=== PATIENT | female | born 1925 | race Caucasian/White ===

== ENCOUNTER 2016-07-27 10:44 | Inpatient (IN) | payer MEDICARE, BC ==
[~2016-07-27] VITALS: Ht 162.6 cm; Wt 79.5 kg
[~2016-07-27 10:44] MED LIST: AMLO5TAB2 PO; ASPI-171 PO; ATOR10TA PO; B CO1TAB12 PO; CALC-178 PO; CALCIUM CARB/VIT D3 500/200 TABLET PO SCH; DONE10TA34 PO; DULO60CA6 PO; GLUC-142 PO; LISI40TA PO; MONT10TA9 PO; TRAM1TAB4 PO; Tumeric PO
[2016-07-27] MEDS ORDERED: IV NORMAL SALINE 500ML BAG 500 ML IV ONE (11:15)
--- NOTE | 2016-07-27 11:16 | PHYS DOC ---
Past Medical History Past Medical History: Arthritis, High Cholesterol, Hypertension, TIA Additional Past Medical Histor: "brain bleed" Past Surgical History: Cholecystectomy, Hysterectomy Additional Past Surgical Histo: aortic stent, Alcohol Use: None Drug Use: None Adult General Chief Complaint Chief Complaint: ALTERED MENTAL STATUS [facility] Patient is a 89 year old female who presents with caregiver for evaluation of altered mental status. Over the past 3 days, she has been confused, eating less and drinking less, and has less physical activity. She is usually a daily ambulator, but has been mostly in the bed in the past few days. She has no reported emesis or diarrhea. She chronically wears briefs for incontinence. Family had to fully assist her to the car to get her here. Caregiver is concerned she has a urinary tract infection as she has prior presentations like this. Patient has no complaints and denies headache, vision changes, dizziness, chest pain, dyspnea, cough, abdominal pain, nausea or vomiting, diarrhea, numbness, tingling, weakness. Review of Systems Review of Systems Constitutional: Denies fever or chills [] Eyes: Denies change in visual acuity, redness, or eye pain [] HENT: Denies nasal congestion or sore throat [] Respiratory: Denies cough or shortness of breath [] Cardiovascular: No additional information not addressed in HPI [] GI: Denies abdominal pain, nausea, vomiting, bloody stools or diarrhea [] : Denies dysuria or hematuria [] Musculoskeletal: Denies back pain or joint pain [] Integument: Denies rash or skin lesions [] Neurologic: Denies headache, focal weakness or sensory changes [] Endocrine: Denies polyuria or polydipsia [] Current Medications Current Medications Current Medications Medications (Trade) Dose Ordered Sig/Jeffy Start Time Stop Time Status Last Admin Dose Admin Ceftriaxone Sodium 1 gm/ Sodium Chloride 50 ml @ 100 mls/hr Q24H 07/28/16 13:00 Ceftriaxone Sodium (Rocephin 1gm Ivpb For Omni) 50 ml @ 100 mls/hr 1X ONCE 07/27/16 12:45 07/27/16 13:14 Sodium Chloride 500 ml @ 500 mls/hr 1X ONCE 07/27/16 11:15 07/27/16 12:14 DC 07/27/16 11:27 500 MLS/HR Allergies Allergies Allergies Coded Allergies Type Severity Reaction Last Updated Verified No Known Drug Allergies 05/10/16 No Physical Exam Physical Exam Constitutional: Well developed, well nourished, no acute distress, non-toxic appearance. [] HENT: Normocephalic, atraumatic, bilateral external ears normal, oropharynx moist, no oral exudates, nose normal. [] Eyes: PERRLA, EOMI, conjunctiva normal, no discharge. [] Neck: Normal range of motion, no tenderness, supple. [] Cardiovascular:Heart rate regular rhythm [] Lungs & Thorax: Bilateral breath sounds clear to auscultation [] Abdomen: Bowel sounds normal, soft, no tenderness. [] Skin: Warm, dry, no erythema, no rash. [] Back: No tenderness, no CVA tenderness. [] Extremities: No tenderness, ROM intact, no edema. [] Neurologic: Alert and oriented to self, normal motor function, normal sensory function, no focal deficits noted. [] Psychologic: Affect normal, mood normal. [] Current Patient Data Vital Signs Vital Signs Date Time Temp Pulse Resp B/P Pulse Ox O2 Delivery O2 Flow Rate FiO2 07/27/16 11:59 75 16 98 07/27/16 10:58 97.8 129/60 Room Air 97.8 Lab Values Laboratory Tests Test 07/27/16 11:15 07/27/16 11:25 White Blood Count 19.3x10^3/uL (4.0-11.0) H Red Blood Count 3.93x10^6/uL (3.50-5.40) Hemoglobin 11.1g/dL (12.0-15.5) L Hematocrit 34.1% (36.0-47.0) L Mean Corpuscular Volume 87fL (79-100) Mean Corpuscular Hemoglobin 28pg (25-35) Mean Corpuscular Hemoglobin Concent 33g/dL (31-37) Red Cell Distribution Width 15.4% (11.5-14.5) H Platelet Count 326x10^3/uL (140-400) Neutrophils (%) (Auto) 90% (31-73) H Lymphocytes (%) (Auto) 6% (24-48) L Monocytes (%) (Auto) 4% (0-9) Eosinophils (%) (Auto) 0% (0-3) Basophils (%) (Auto) 0% (0-3) Neutrophils # (Auto) 17.4x10^3uL (1.8-7.7) H Lymphocytes # (Auto) 1.1x10^3/uL (1.0-4.8) Monocytes # (Auto) 0.7x10^3/uL (0.0-1.1) Eosinophils # (Auto) 0.0x10^3/uL (0.0-0.7) Basophils # (Auto) 0.1x10^3/uL (0.0-0.2) Platelet Estimate Pending Sodium Level 144mmol/L (136-145) Potassium Level 3.8mmol/L (3.5-5.1) Chloride Level 106mmol/L (98-107) Carbon Dioxide Level 28mmol/L (21-32) Anion Gap 10 (6-14) Blood Urea Nitrogen 39mg/dL (7-20) H Creatinine 1.5mg/dL (0.6-1.0) H Estimated GFR (Cockcroft-Gault) 32.7 Glucose Level 150mg/dL (70-99) H Calcium Level 9.3mg/dL (8.5-10.1) Urine Collection Type U cath Urine Color Rachel Urine Clarity Cloudy Urine pH 6.0 Urine Specific [place] 1.020 Urine Protein 100mg/dL (NEG-TRACE) Urine Glucose (UA) Negativemg/dL (NEG) Urine Ketones (Stick) Tracemg/dL (NEG) Urine Blood Large (NEG) Urine Nitrite Negative (NEG) Urine Bilirubin Small (NEG) Urine Urobilinogen Dipstick 0.2mg/dL (0.2 mg/dL) Urine Leukocyte Esterase Moderate (NEG) Urine RBC >40/HPF (0-2) Urine WBC 11-20/HPF (0-4) Urine Squamous Epithelial Cells Mod/LPF Urine Bacteria Moderate/HPF (0-FEW) Urine Mucus Mod/LPF Laboratory Tests 07/27/16 11:15 Laboratory Tests 07/27/16 11:15 EKG EKG EKG as interpreted by me as normal sinus rhythm, rate 68, no ST-T changes, normal intervals, no ectopy Course & Med Decision Making Course & Med Decision Making Pertinent Labs and Imaging studies reviewed. (See chart for details) She has leukocytosis and slight elevation in creatinine. Urinalysis shows infection. Suspect delirium secondary to metabolic encephalopathy of urinary tract infection. She has remained cooperative in bed. Will admit for treatment continued therapy. Discussed with Dr. Huber, who will admit. Taylor Disclaimer Taylor Disclaimer This electronic medical record was generated, in whole or in part, using a voice recognition dictation system. Departure Departure Impression: Primary Impression: Altered mental status Additional Impression: Acute cystitis without hematuria Disposition: ADMITTED INPATIENT Condition: STABLE Referrals: AMISHA ALVAREZ MD (PCP) Problem Qualifiers Primary Impression: Altered mental status Altered mental status type: delirium Qualified Code: R41.0 - Disorientation , unspecified Seble FERNANDO MD Jul 27, 2016 11:16
[2016-07-27 11:33] LABS: HEMATOCRIT 34.1 % (36.0-47.0); HEMOGLOBIN 11.1 g/dL (12.0-15.5); MEAN CORPUSCULAR HEMOGLOBIN 28 pg (25-35); MEAN CORPUSCULAR HGB CONC 33 g/dL (31-37); MEAN CORPUSCULAR VOLUME 87 fL (79-100); RED BLOOD COUNT 3.93 x10^6/uL (3.50-5.40); WHITE BLOOD COUNT 19.3 x10^3/uL (4.0-11.0)
[2016-07-27 11:34] LABS: BASO # 0.1 x10^3/uL (0.0-0.2); BASO % 0 % (0-3); EOS % 0 % (0-3); LYMPH # 1.1 x10^3/uL (1.0-4.8); LYMPH % 6 % (24-48); MONO % 4 % (0-9); NEUT % 90 % (31-73); PLATELET COUNT 326 x10^3/uL (140-400); RED CELL DISTRIBUTION WIDTH 15.4 % (11.5-14.5)
[2016-07-27 11:51] LABS: CALCIUM 9.3 mg/dL (8.5-10.1); CREATININE 1.5 mg/dL (0.6-1.0); GFR 32.7; POTASSIUM 3.8 mmol/L (3.5-5.1)
--- NOTE | 2016-07-27 12:03 | EKG ---
[facility] [address] [place] [address] Test Date: 2016-07-27 Test Time: 11:06:28 Pat Name: AUBRIE DELATORRE Department: Room: Gender: F Gin Inspector: : [id number] Requested By: Seble FERNANDO Order Number: [id number] Reading MD: Measurements Intervals [place] Rate: 68 P: 45 DC: 130 QRS: 33 QRSD: 76 T: 106 QT: 438 QTc: 471 Interpretive Statements SINUS RHYTHM T ABNORMALITY IN LATERAL LEADS RI6.01 Unconfirmed report No previous ECG available for comparison
[2016-07-27 12:04] LABS: GLUCOSE,URINE NEGATIVE (NEG)
[2016-07-27 12:05] LABS: BACTERIA,URINE MODERATE /HPF (0-FEW); BILIRUBIN,URINE SMALL (NEG); NITRITE,URINE NEGATIVE (NEG); PROTEIN,URINE 100 mg/dL (NEG-TRACE); RBC,URINE >40 /HPF (0-2); SQUAMOUS EPITHELIAL CELL,UR MOD /LPF; UROBILINOGEN,URINE 0.2 mg/dL (0.2 mg/dL)
[2016-07-27] MEDS ORDERED: CEFTRIAXONE 1GM IVPB FOR OMNI 50 ML IV ONE (12:45)
[2016-07-27] MEDS ORDERED: ACETAMINOPHEN 325 MG TABLET. PO PRN (13:00)
[2016-07-27] MEDS ORDERED: ONDANSETRON PF 4 MG/2 ML VIAL. IV PRN ×2 (13:00→14:45)
[2016-07-27 13:34] LABS: % BASOS 1 % (0-3)
[2016-07-27 13:35] LABS: PLT ESTIMATE ADEQUATE (ADEQUATE)
--- NOTE | 2016-07-27 14:48 | ACF ---
Admission Forms Criteria MENTAL STATUS CHANGE Clinical Indications for Inpatient Care (Place 'X' for any and all applicable criteria): Ongoing inpatient care may be needed for ANY ONE of the following(1)(2)(3)(5)(6) : [X]I. Suspected serious etiology (eg, medical disorder, SURGERY TECHNICIAN event) of mental status change [ ]II. Danger to self or others not manageable at lower level of care [ ]III. Grave disability (eg, inability to perform self care necessary at lower level of care) [ ]IV. Agitation or inappropriate behavior interfering with care for primary condition (eg, attempting to discontinue lines or drains prematurely, unable to cooperate with respiratory care) [ ]V. Delirium [A] [D][E] as described by ANY ONE of the following(26): [ ]a) Delirium due to alcohol or sedative [F] withdrawal [ ]b) Delirium of uncertain etiology that has not responded to appropriate empiric treatment [ ]c) Delirium that prevents performance of a life-sustaining function (eg, feeding or hydrating oneself) [ ]. General contraindications and/or Inappropriate clinical situations for Observational Care in patients with Mental Status Change, when ANY ONE of the following is required: [ ]a) Prediction of prolongation of LOS based on ANY ONE of the following may be considered as a contraindication for observational care 2, 3, 4, 5, 6, 7, 8, 9, 10, 11 [ ]i) Age > 65 yrs. [ ]ii) Patient arriving by ambulance [ ]iii) Patient with high acuity [ ]iv) Patient requiring vital sign monitoring [ ]v) Patient on IV medication [ ]b) Systolic blood pressures 180mmHg 3,12 [ ]c) Patient with altered mental status including delirium and other alteration of consciousness, (3) [ ]d) Patient whose discharge disposition will be to a longterm home or rehabilitation home should not be managed in Emergency Department Observation Unit. CMS rule requires 3 days hospital stay before such placement.3,13 [ ]e) Patient with failure to thrive due to broad array of etiologies 3,16,17 [ ]f) Inability to ambulate 3,14 Extended stay beyond goal length of stay for the primary condition may be needed until ALL of the following are present(3)(5): [ ]a) Underlying medical etiology of mental status change is absent, or has been established and adequately treated [ ]b) Danger to self or others is absent or manageable at lower level of care. [ ]c) Behavior crisis management, including physical or chemical restraints, is not required or available at lower level of car [ ]d) Substance or alcohol withdrawal is absent or manageable at lower level of care. [ ]e) Behavioral symptoms (eg, agitation, somnolence, inappropriate behavior) are absent, or are manageable at lower level of care. The original [facility] content created by [facility] has been revised. The portions of the content which have been revised are identified through the use of italic text or in bold, and [facility] has neither reviewed nor approved the modified material. All other unmodified content is copyright [facility]. Please see references footnoted in the original [facility] edition 2016 Admission Criteria Met?: Yes BRITTANIE MELARA Jul 27, 2016 14:47
--- NOTE | 2016-07-27 14:54 | PDOC1 ---
History and Physical Date of Admission Date of Admission DATE: 07/27/16 TIME: 14:50 Identification/Chief Complaint Chief Complaint change in MS Source Source: Caregiver, Chart review, Patient History of Present Illness History of Present Illness 89 y/o female brought by family members bec of more confusion, ALready has existing ALzheimer's on aricept 10. PCP Dr. Serrano. Lives at home, DNR. Family agreeable to SNU, UTI at ER, HEmodyncamics and VS stable. Last UTI was Apr 2016. WBC 16, Crea 1.5 Home meds reviewed with family Past Medical History Cardiovascular: HTN, Hyperlipidemia CENTRAL NERVOUS SYSTEM: Dementia GI: No pertinent hx Hepatobiliary: No pertinent hx Psych: No pertinent hx Musculoskeletal: Osteoarthritis Infectious disease: No pertinent hx Renal/: No pertinent hx Endocrine: No pertinent hx Past Surgical History Past Surgical History: No pertinent history Family History Family History: No Significant Social History Smoke: No ALCOHOL: none Drugs: None Current Problem List Problem List Problems Medical Problems: (1) Acute cystitis without hematuria Status: Acute (2) Altered mental status Status: Acute Problems: Current Medications Current Medications Current Medications Sodium Chloride 500 ml @ 500 mls/hr 1X ONCE IV Last administered on 07/27/16 11:27; Start 07/27/16 at 11:15; Stop 07/27/16 at 12:14; Status DC Ceftriaxone Sodium 1 gm/ Sodium Chloride 50 ml @ 100 mls/hr Q24H IV ; Start 07/28/16 at 13:00 Ceftriaxone Sodium (Rocephin 1gm Ivpb For Omni) 50 ml @ 100 mls/hr 1X ONCE IV Last administered on 07/27/16 13:14; Start 07/27/16 at 12:45; Stop 07/27/16 at 13:14; Status DC Ondansetron HCl (Zofran) 4 mg PRN Q8HRS PRN IV NAUSEA/VOMITING; Start 07/27/16 at 13:00; Stop 07/27/16 at 14:48; Status DC Acetaminophen (Tylenol) 650 mg PRN Q4HRS PRN PO FEVER; Start 07/27/16 at 13:00; Stop 07/28/16 at 12:59 Ondansetron HCl 4 mg 4 mg PRN Q6HRS PRN IV NAUSEA/VOMITING; Start 07/27/16 at 14 :45 Amino Acids/ Glycerin/ Electrolytes (Procalamine) 1,000 ml @ 80 mls/hr [id number] IV ; Start 07/27/16 at 15:00 Amlodipine Besylate (Norvasc) 5 mg HS PO ; Start 07/27/16 at 21:00; Status UNV Aspirin (Ecotrin) 81 mg HS PO ; Start 07/27/16 at 21:00; Status UNV Atorvastatin Calcium (Lipitor) 10 mg DAILY PO ; Start 07/28/16 at 09:00; Status UNV Donepezil HCl (Aricept) 10 mg DAILY PO ; Start 07/28/16 at 09:00; Status UNV Lisinopril (Prinivil) 40 mg DAILY PO ; Start 07/28/16 at 09:00; Status UNV Montelukast Sodium (Singulair) 10 mg HS PO ; Start 07/27/16 at 21:00; Status UNV Non-Formulary Medication 1 each DAILY PO ; Start 07/28/16 at 09:00; Status UNV Non-Formulary Medication 1 each DAILY PO ; Start 07/28/16 at 09:00; Status UNV Non-Formulary Medication 60 mg HS PO ; Start 07/27/16 at 21:00; Status UNV Non-Formulary Medication 1 each BID92 PO ; Start 07/28/16 at 09:00; Status UNV Non-Formulary Medication 1 tab HS PO ; Start 07/27/16 at 21:00; Status UNV Non-Formulary Medication 2 tab DAILYWBKFT PO ; Start 07/28/16 at 08:00; Status UNV Non-Formulary Medication 500 mg HS PO ; Start 07/27/16 at 21:00; Status UNV Active Scripts Active Reported Lo-Dose Aspirin EC (Aspirin) 81 Mg Tablet.dr 81 Mg PO HS [Tumeric] 500 Mg PO HS Cymbalta (Duloxetine Hcl) 60 Mg Capsule.dr 60 Mg PO HS Amlodipine Besylate 5 Mg Tablet 5 Mg PO HS Montelukast Sodium Tablet (Montelukast Sodium) 10 Mg Tablet 10 Mg PO HS Calcium 1,000 + D3 Caplet (Calcium Carbonate/Vitamin D3) 1 Each Tablet 1 Each PO DAILY Vitamin B-Complex & C (B Complex With Vitamin C) 1 Each Tablet.er 1 Each PO DAILY Lipitor (Atorvastatin Calcium) 10 Mg Tablet 10 Mg PO DAILY Osteo Bi-Flex Tablet (Glucosamine/D3/Boswellia Sharon) 1 Each Tablet 1 Each PO BID92 Aricept (Donepezil Hcl) 10 Mg Tablet 10 Mg PO DAILY Tramadol-Acetaminophn 37.5-325 (Tramadol Hcl/Acetaminophen) 1 Each Tablet 1 Tab PO HS Tramadol-Acetaminophn 37.5-325 (Tramadol Hcl/Acetaminophen) 1 Each Tablet 2 Tab PO DAILYWBKFT Lisinopril 40 Mg Tablet 40 Mg PO DAILY Allergies Allergies: Coded Allergies: No Known Drug Allergies (Unverified , 05/10/16) ROS Review of System limited sec to dementia Physical Exam General: Cooperative HEENT: Atraumatic, PERRLA, EOMI Lungs: Clear to auscultation, Normal air movement Heart: S1S2, RRR, no thrills, no rubs, no gallops Cardiovascular: S1, S2 Breasts: Normal, Lactating Abdomen: Normal bowel sounds, Soft, No tenderness, No hepatosplenomegaly, No masses Rectal Exam: not examined Extremities: No clubbing, No cyanosis, No edema, Normal pulses, No tenderness/ swelling Skin: No rashes, No breakdown, No significant lesion Neuro: Normal gait, Normal speech, Strength at 5/5 X4 ext, Normal tone, Sensation intact, Cranial nerves 3-12 NL, Reflexes 2+ Vitals Vitals Vital Signs Date Time Temp Pulse Resp B/P Pulse Ox O2 Delivery O2 Flow Rate FiO2 07/27/16 14:25 79 16 94 07/27/16 10:58 97.8 129/60 Room Air 97.8 Labs Labs Laboratory Tests Test 07/27/16 11:15 07/27/16 11:25 White Blood Count 19.3x10^3/uL (4.0-11.0) Red Blood Count 3.93x10^6/uL (3.50-5.40) Hemoglobin 11.1g/dL (12.0-15.5) Hematocrit 34.1% (36.0-47.0) Mean Corpuscular Volume 87fL (79-100) Mean Corpuscular Hemoglobin 28pg (25-35) Mean Corpuscular Hemoglobin Concent 33g/dL (31-37) Red Cell Distribution Width 15.4% (11.5-14.5) Platelet Count 326x10^3/uL (140-400) Neutrophils (%) (Auto) 90% (31-73) Lymphocytes (%) (Auto) 6% (24-48) Monocytes (%) (Auto) 4% (0-9) Eosinophils (%) (Auto) 0% (0-3) Basophils (%) (Auto) 0% (0-3) Neutrophils # (Auto) 17.4x10^3uL (1.8-7.7) Lymphocytes # (Auto) 1.1x10^3/uL (1.0-4.8) Monocytes # (Auto) 0.7x10^3/uL (0.0-1.1) Eosinophils # (Auto) 0.0x10^3/uL (0.0-0.7) Basophils # (Auto) 0.1x10^3/uL (0.0-0.2) Segmented Neutrophils % 68% (35-66) Band Neutrophils % 19% (0-9) Lymphocytes % 9% (24-48) Monocytes % 3% (0-10) Basophils % 1% (0-3) Platelet Estimate Adequate (ADEQUATE) Sodium Level 144mmol/L (136-145) Potassium Level 3.8mmol/L (3.5-5.1) Chloride Level 106mmol/L (98-107) Carbon Dioxide Level 28mmol/L (21-32) Anion Gap 10 (6-14) Blood Urea Nitrogen 39mg/dL (7-20) Creatinine 1.5mg/dL (0.6-1.0) Estimated GFR (Cockcroft-Gault) 32.7 Glucose Level 150mg/dL (70-99) Calcium Level 9.3mg/dL (8.5-10.1) Urine Collection Type U cath Urine Color Rachel Urine Clarity Cloudy Urine pH 6.0 Urine Specific [place] 1.020 Urine Protein 100mg/dL (NEG-TRACE) Urine Glucose (UA) Negativemg/dL (NEG) Urine Ketones (Stick) Tracemg/dL (NEG) Urine Blood Large (NEG) Urine Nitrite Negative (NEG) Urine Bilirubin Small (NEG) Urine Urobilinogen Dipstick 0.2mg/dL (0.2 mg/dL) Urine Leukocyte Esterase Moderate (NEG) Urine RBC >40/HPF (0-2) Urine WBC 11-20/HPF (0-4) Urine Squamous Epithelial Cells Mod/LPF Urine Bacteria Moderate/HPF (0-FEW) Urine Mucus Mod/LPF Laboratory Tests Test 07/27/16 11:15 07/27/16 11:25 White Blood Count 19.3x10^3/uL (4.0-11.0) Red Blood Count 3.93x10^6/uL (3.50-5.40) Hemoglobin 11.1g/dL (12.0-15.5) Hematocrit 34.1% (36.0-47.0) Mean Corpuscular Volume 87fL (79-100) Mean Corpuscular Hemoglobin 28pg (25-35) Mean Corpuscular Hemoglobin Concent 33g/dL (31-37) Red Cell Distribution Width 15.4% (11.5-14.5) Platelet Count 326x10^3/uL (140-400) Neutrophils (%) (Auto) 90% (31-73) Lymphocytes (%) (Auto) 6% (24-48) Monocytes (%) (Auto) 4% (0-9) Eosinophils (%) (Auto) 0% (0-3) Basophils (%) (Auto) 0% (0-3) Neutrophils # (Auto) 17.4x10^3uL (1.8-7.7) Lymphocytes # (Auto) 1.1x10^3/uL (1.0-4.8) Monocytes # (Auto) 0.7x10^3/uL (0.0-1.1) Eosinophils # (Auto) 0.0x10^3/uL (0.0-0.7) Basophils # (Auto) 0.1x10^3/uL (0.0-0.2) Segmented Neutrophils % 68% (35-66) Band Neutrophils % 19% (0-9) Lymphocytes % 9% (24-48) Monocytes % 3% (0-10) Basophils % 1% (0-3) Platelet Estimate Adequate (ADEQUATE) Sodium Level 144mmol/L (136-145) Potassium Level 3.8mmol/L (3.5-5.1) Chloride Level 106mmol/L (98-107) Carbon Dioxide Level 28mmol/L (21-32) Anion Gap 10 (6-14) Blood Urea Nitrogen 39mg/dL (7-20) Creatinine 1.5mg/dL (0.6-1.0) Estimated GFR (Cockcroft-Gault) 32.7 Glucose Level 150mg/dL (70-99) Calcium Level 9.3mg/dL (8.5-10.1) Urine Collection Type U cath Urine Color Rachel Urine Clarity Cloudy Urine pH 6.0 Urine Specific [place] 1.020 Urine Protein 100mg/dL (NEG-TRACE) Urine Glucose (UA) Negativemg/dL (NEG) Urine Ketones (Stick) Tracemg/dL (NEG) Urine Blood Large (NEG) Urine Nitrite Negative (NEG) Urine Bilirubin Small (NEG) Urine Urobilinogen Dipstick 0.2mg/dL (0.2 mg/dL) Urine Leukocyte Esterase Moderate (NEG) Urine RBC >40/HPF (0-2) Urine WBC 11-20/HPF (0-4) Urine Squamous Epithelial Cells Mod/LPF Urine Bacteria Moderate/HPF (0-FEW) Urine Mucus Mod/LPF VTE Prophylaxis Ordered VTE Prophylaxis Devices: Yes VTE Pharmacological Prophylaxi: Yes Assessment/Plan Assessment/Plan 1. SIRS POA, no sepsis 2. UTI in an elderly 3. 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 HTN, controlled 6. Advanced dementia 7. SAMUEL, vasomotor 8. DNR PLAN: Rocephin Urine CX PT/OT SNU screen c./o SW - family agreeable Procalamine IVF BMP samantha AM Nutrition consult DVT prophy with heparin DNR MARI JJ MD Jul 27, 2016 14:54
[2016-07-27 15:00] VITALS: BP 130/55
[2016-07-27] MEDS: DONEPEZIL HCL 10 MG TABLET. PO SCH (15:30)
[2016-07-27] MEDS: LISINOPRIL 40 MG TABLET. PO SCH (15:30)
[2016-07-27] MEDS: AA 3%/ELECTROLYTE-TPN SOLN/GLY 1,000 ML IV SCH (15:57)
[2016-07-27] MEDS: CALCIUM CARB/VIT D3 500/200 TABLET PO SCH (15:58)
[2016-07-27 19:00] VITALS: BP 130/53
[2016-07-27] MEDS: MONTELUKAST SODIUM 10 MG TABLET. PO SCH (20:53)
[2016-07-27] MEDS: ACETAMINOPHEN 325 MG TABLET. PO SCH (20:53)
[2016-07-27] MEDS: ASPIRIN ENTERIC COATED 81 MG TABLET.DR. PO SCH (20:53)
[2016-07-27] MEDS: ATORVASTATIN CALCIUM 10 MG TABLET. PO SCH (20:53)
[2016-07-27] MEDS: TRAMADOL 50 MG TABLET. PO SCH (20:54)
[2016-07-27] MEDS: DULOXETINE HCL 30 MG CAPSULE.DR. PO SCH (20:54)
[2016-07-27] MEDS: AMLODIPINE BESYLATE 5 MG TABLET PO SCH (20:55)
[2016-07-27] MEDS ORDERED: TUMERIC 500 MG PO SCH (21:00)
[2016-07-27] MEDS: HEPARIN PF for SUB-Q USE 5,000 UNIT/0.5 ML VIAL. SQ SCH (21:36)
[2016-07-27 23:00] VITALS: BP 108/52
[2016-07-28 03:00] VITALS: BP 114/56
[2016-07-28 04:22] LABS: BASO % 0 % (0-3); EOS % 0 % (0-3); LYMPH # 1.3 x10^3/uL (1.0-4.8); LYMPH % 8 % (24-48); MEAN CORPUSCULAR HEMOGLOBIN 28 pg (25-35); MEAN CORPUSCULAR HGB CONC 33 g/dL (31-37); MEAN CORPUSCULAR VOLUME 85 fL (79-100); MONO % 4 % (0-9); NEUT % 89 % (31-73); PLATELET COUNT 278 x10^3/uL (140-400); RED BLOOD COUNT 3.56 x10^6/uL (3.50-5.40); RED CELL DISTRIBUTION WIDTH 15.9 % (11.5-14.5); WHITE BLOOD COUNT 16.4 x10^3/uL (4.0-11.0)
[2016-07-28] MEDS: AA 3%/ELECTROLYTE-TPN SOLN/GLY 1,000 ML IV SCH (04:33)
[2016-07-28 04:43] LABS: CALCIUM 9.1 mg/dL (8.5-10.1); CREATININE 1.2 mg/dL (0.6-1.0); GFR 42.3; POTASSIUM 3.2 mmol/L (3.5-5.1)
[2016-07-28] MEDS: HEPARIN PF for SUB-Q USE 5,000 UNIT/0.5 ML VIAL. SQ SCH ×3 (05:34→21:56)
[2016-07-28 07:08] VITALS: BP 112/61
[2016-07-28] MEDS: AA 4.25%/CALCIUM/LYTES/D5W 1,000 ML IV SCH ×2 (07:30→18:52)
[2016-07-28] MEDS ORDERED: VITAMIN B COMPLEX TABLET. PO SCH (09:00)
[2016-07-28] MEDS ORDERED: NON FORMULARY ITEM (Glucosamine/D3/Boswellia Serra (Osteo Bi-Flex Tablet) 1 EACH) PO SCH (09:00)
[2016-07-28] MEDS: DONEPEZIL HCL 10 MG TABLET. PO SCH (09:03)
[2016-07-28] MEDS: ACETAMINOPHEN 325 MG TABLET. PO SCH ×2 (09:04→20:43)
[2016-07-28] MEDS: TRAMADOL 50 MG TABLET. PO SCH ×2 (09:05→20:42)
[2016-07-28] MEDS: LISINOPRIL 40 MG TABLET. PO SCH (09:06)
[2016-07-28 10:50] VITALS: BP 117/55
[2016-07-28] MEDS ORDERED: POTASSIUM CHLORIDE 20 MEQ TABLET.ER. PO ONE (11:30)
[2016-07-28] MEDS: CALCIUM CARB/VIT D3 500/200 TABLET PO SCH (13:02)
[2016-07-28] MEDS: VITAMIN B COMPLEX TABLET. PO SCH (13:02)
[2016-07-28] MEDS: CEFTRIAXONE SODIUM 1 GM in IV NORMAL SALINE 50ML 50 ML IV SCH (13:11)
--- NOTE | 2016-07-28 14:52 | PDOC ---
PROGRESS NOTES Chief Complaint Chief Complaint 1. SIRS POA, no sepsis 2. UTI in an elderly 3. 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 HTN, controlled 6. Advanced dementia 7. SAMUEL, vasomotor 8. DNR 9. hypokalemia PLAN: Rocephin Urine CX PT/OT SNU screen c./o SW - family agreeable Procalamine ppn BMP samantha AM Nutrition consult DVT prophy with heparin DNR REPLETE k History of Present Illness History of Present Illness very weak, hard to walk with PT today cr better , K 3.2 Vitals Vitals Vital Signs Date Time Temp Pulse Resp B/P Pulse Ox O2 Delivery O2 Flow Rate FiO2 07/28/16 10:50 97.8 81 18 117/55 100 Room Air 97.8 Physical Exam Physical Exam AAOX1 General: Cooperative Heart: Regular rate, Normal S1 Lungs: Clear Abdomen: Normal bowel sounds, Soft, No tenderness, No hepatosplenomegaly, No masses Extremities: No clubbing, No cyanosis, No edema, Normal pulses, No tenderness/ swelling Skin: No rashes, No breakdown, No significant lesion Labs LABS Laboratory Tests Test 07/28/16 03:45 White Blood Count 16.4x10^3/uL (4.0-11.0) Red Blood Count 3.56x10^6/uL (3.50-5.40) Hemoglobin 10.0g/dL (12.0-15.5) Hematocrit 30.0% (36.0-47.0) Mean Corpuscular Volume 85fL (79-100) Mean Corpuscular Hemoglobin 28pg (25-35) Mean Corpuscular Hemoglobin Concent 33g/dL (31-37) Red Cell Distribution Width 15.9% (11.5-14.5) Platelet Count 278x10^3/uL (140-400) Neutrophils (%) (Auto) 89% (31-73) Lymphocytes (%) (Auto) 8% (24-48) Monocytes (%) (Auto) 4% (0-9) Eosinophils (%) (Auto) 0% (0-3) Basophils (%) (Auto) 0% (0-3) Neutrophils # (Auto) 14.6x10^3uL (1.8-7.7) Lymphocytes # (Auto) 1.3x10^3/uL (1.0-4.8) Monocytes # (Auto) 0.6x10^3/uL (0.0-1.1) Eosinophils # (Auto) 0.0x10^3/uL (0.0-0.7) Basophils # (Auto) 0.0x10^3/uL (0.0-0.2) Sodium Level 143mmol/L (136-145) Potassium Level 3.2mmol/L (3.5-5.1) Chloride Level 107mmol/L (98-107) Carbon Dioxide Level 29mmol/L (21-32) Anion Gap 7 (6-14) Blood Urea Nitrogen 41mg/dL (7-20) Creatinine 1.2mg/dL (0.6-1.0) Estimated GFR (Cockcroft-Gault) 42.3 Glucose Level 136mg/dL (70-99) Calcium Level 9.1mg/dL (8.5-10.1) Review of Systems Review of Systems no fever, chills, sob or chest pain Assessment and Plan Assessmemt and Plan Problems Medical Problems: (1) Acute cystitis without hematuria Status: Acute (2) Altered mental status Status: Acute Problems: Comment Review of Relevant I have reviewed the following items raffaele (where applicable) has been applied. Labs Laboratory Tests Test 07/27/16 11:15 07/27/16 11:25 07/28/16 03:45 White Blood Count 19.3x10^3/uL (4.0-11.0) 16.4x10^3/uL (4.0-11.0) Red Blood Count 3.93x10^6/uL (3.50-5.40) 3.56x10^6/uL (3.50-5.40) Hemoglobin 11.1g/dL (12.0-15.5) 10.0g/dL (12.0-15.5) Hematocrit 34.1% (36.0-47.0) 30.0% (36.0-47.0) Mean Corpuscular Volume 87fL (79-100) 85fL (79-100) Mean Corpuscular Hemoglobin 28pg (25-35) 28pg (25-35) Mean Corpuscular Hemoglobin Concent 33g/dL (31-37) 33g/dL (31-37) Red Cell Distribution Width 15.4% (11.5-14.5) 15.9% (11.5-14.5) Platelet Count 326x10^3/uL (140-400) 278x10^3/uL (140-400) Neutrophils (%) (Auto) 90% (31-73) 89% (31-73) Lymphocytes (%) (Auto) 6% (24-48) 8% (24-48) Monocytes (%) (Auto) 4% (0-9) 4% (0-9) Eosinophils (%) (Auto) 0% (0-3) 0% (0-3) Basophils (%) (Auto) 0% (0-3) 0% (0-3) Neutrophils # (Auto) 17.4x10^3uL (1.8-7.7) 14.6x10^3uL (1.8-7.7) Lymphocytes # (Auto) 1.1x10^3/uL (1.0-4.8) 1.3x10^3/uL (1.0-4.8) Monocytes # (Auto) 0.7x10^3/uL (0.0-1.1) 0.6x10^3/uL (0.0-1.1) Eosinophils # (Auto) 0.0x10^3/uL (0.0-0.7) 0.0x10^3/uL (0.0-0.7) Basophils # (Auto) 0.1x10^3/uL (0.0-0.2) 0.0x10^3/uL (0.0-0.2) Segmented Neutrophils % 68% (35-66) Band Neutrophils % 19% (0-9) Lymphocytes % 9% (24-48) Monocytes % 3% (0-10) Basophils % 1% (0-3) Platelet Estimate Adequate (ADEQUATE) Sodium Level 144mmol/L (136-145) 143mmol/L (136-145) Potassium Level 3.8mmol/L (3.5-5.1) 3.2mmol/L (3.5-5.1) Chloride Level 106mmol/L (98-107) 107mmol/L (98-107) Carbon Dioxide Level 28mmol/L (21-32) 29mmol/L (21-32) Anion Gap 10 (6-14) 7 (6-14) Blood Urea Nitrogen 39mg/dL (7-20) 41mg/dL (7-20) Creatinine 1.5mg/dL (0.6-1.0) 1.2mg/dL (0.6-1.0) Estimated GFR (Cockcroft-Gault) 32.7 42.3 Glucose Level 150mg/dL (70-99) 136mg/dL (70-99) Calcium Level 9.3mg/dL (8.5-10.1) 9.1mg/dL (8.5-10.1) Urine Collection Type U cath Urine Color Rachel Urine Clarity Cloudy Urine pH 6.0 Urine Specific Tobias 1.020 Urine Protein 100mg/dL (NEG-TRACE) Urine Glucose (UA) Negativemg/dL (NEG) Urine Ketones (Stick) Tracemg/dL (NEG) Urine Blood Large (NEG) Urine Nitrite Negative (NEG) Urine Bilirubin Small (NEG) Urine Urobilinogen Dipstick 0.2mg/dL (0.2 mg/dL) Urine Leukocyte Esterase Moderate (NEG) Urine RBC >40/HPF (0-2) Urine WBC 11-20/HPF (0-4) Urine Squamous Epithelial Cells Mod/LPF Urine Bacteria Moderate/HPF (0-FEW) Urine Mucus Mod/LPF Laboratory Tests Test 07/28/16 03:45 White Blood Count 16.4x10^3/uL (4.0-11.0) Red Blood Count 3.56x10^6/uL (3.50-5.40) Hemoglobin 10.0g/dL (12.0-15.5) Hematocrit 30.0% (36.0-47.0) Mean Corpuscular Volume 85fL (79-100) Mean Corpuscular Hemoglobin 28pg (25-35) Mean Corpuscular Hemoglobin Concent 33g/dL (31-37) Red Cell Distribution Width 15.9% (11.5-14.5) Platelet Count 278x10^3/uL (140-400) Neutrophils (%) (Auto) 89% (31-73) Lymphocytes (%) (Auto) 8% (24-48) Monocytes (%) (Auto) 4% (0-9) Eosinophils (%) (Auto) 0% (0-3) Basophils (%) (Auto) 0% (0-3) Neutrophils # (Auto) 14.6x10^3uL (1.8-7.7) Lymphocytes # (Auto) 1.3x10^3/uL (1.0-4.8) Monocytes # (Auto) 0.6x10^3/uL (0.0-1.1) Eosinophils # (Auto) 0.0x10^3/uL (0.0-0.7) Basophils # (Auto) 0.0x10^3/uL (0.0-0.2) Sodium Level 143mmol/L (136-145) Potassium Level 3.2mmol/L (3.5-5.1) Chloride Level 107mmol/L (98-107) Carbon Dioxide Level 29mmol/L (21-32) Anion Gap 7 (6-14) Blood Urea Nitrogen 41mg/dL (7-20) Creatinine 1.2mg/dL (0.6-1.0) Estimated GFR (Cockcroft-Gault) 42.3 Glucose Level 136mg/dL (70-99) Calcium Level 9.1mg/dL (8.5-10.1) Microbiology 07/27/16 Urine Culture - Preliminary, Resulted 07/27/16 Urine Culture Result 1 (TRAE) - Preliminary, Resulted 07/27/16 Urine Culture Result 2 (TRAE) - Preliminary, Resulted Medications Current Medications Sodium Chloride 500 ml @ 500 mls/hr 1X ONCE IV Last administered on 07/27/16 11:27; Start 07/27/16 at 11:15; Stop 07/27/16 at 12:14; Status DC Ceftriaxone Sodium 1 gm/ Sodium Chloride 50 ml @ 100 mls/hr Q24H IV Last administered on 07/28/16 13:11; Start 07/28/16 at 13:00 Ceftriaxone Sodium (Rocephin 1gm Ivpb For Omni) 50 ml @ 100 mls/hr 1X ONCE IV Last administered on 07/27/16 13:14; Start 07/27/16 at 12:45; Stop 07/27/16 at 13:14; Status DC Ondansetron HCl (Zofran) 4 mg PRN Q8HRS PRN IV NAUSEA/VOMITING; Start 07/27/16 at 13:00; Stop 07/27/16 at 14:48; Status DC Acetaminophen (Tylenol) 650 mg PRN Q4HRS PRN PO FEVER; Start 07/27/16 at 13:00; Stop 07/28/16 at 12:59; Status DC Ondansetron HCl 4 mg 4 mg PRN Q6HRS PRN IV NAUSEA/VOMITING; Start 07/27/16 at 14 :45 Amino Acids/ Glycerin/ Electrolytes (Procalamine) 1,000 ml @ 80 mls/hr [id number] IV Last administered on 07/28/16 04:33; Start 07/27/16 at 15:00; Stop 07/28/16 at 07:17; Status DC Amlodipine Besylate (Norvasc) 5 mg HS PO Last administered on 07/27/16 20:55; Start 07/27/16 at 21:00 Aspirin (Ecotrin) 81 mg HS PO Last administered on 07/27/16 20:53; Start at 21:00 Atorvastatin Calcium (Lipitor) 10 mg QHS PO Last administered on 07/27/16 20:53 ; Start 07/27/16 at 21:00 Donepezil HCl (Aricept) 10 mg DAILY PO Last administered on 07/28/16 09:03; Start 07/27/16 at 15:30 Lisinopril (Prinivil) 40 mg DAILY PO Last administered on 07/28/16 09:06; Start 07/27/16 at 15:30 Montelukast Sodium (Singulair) 10 mg HS PO Last administered on 07/27/16 20:53 ; Start 07/27/16 at 21:00 Vitamin B Complex (Rufino B) 1 tab DAILY PO ; Start 07/28/16 at 09:00; Stop at 09:00; Status DC Calcium/Vitamin D (Oscal D 500mg/ 200uts) 2 tab DAILY PO ; Start 07/27/16 at 09: 00; Stop 07/27/16 at 15:45; Status DC Duloxetine HCl (Cymbalta) 30 mg QHS PO Last administered on 07/27/16 20:54; Start 07/27/16 at 21:00 Non-Formulary Medication 1 each BID92 PO ; Start 07/28/16 at 09:00; Status UNV Tramadol HCl (Ultram) 50 mg BID PO Last administered on 07/28/16 09:05; Start 07/27/16 at 21:00 Acetaminophen (Tylenol) 325 mg BID PO Last administered on 07/28/16 09:04; Start 07/27/16 at 21:00 Non-Formulary Medication 500 mg HS PO ; Start 07/27/16 at 21:00; Status UNV Heparin Sodium (Porcine) 5,000 unit Q8HRS SQ Last administered on 07/28/16 13: 16; Start 07/27/16 at 22:00 Calcium/Vitamin D (Oscal D 500mg/ 200uts) 2 tab NOON PO Last administered on 13:02; Start 07/27/16 at 16:00 Vitamin B Complex 1 tab 1 tab NOON PO Last administered on 07/28/16 13:02; Start 07/28/16 at 12:00 Amino Acids/ Electrolytes/ Dextrose (Clinimix E 4.25%-5% Solution) 1,000 ml @ 80 mls/hr [id number] IV ; Start 07/28/16 at 07:30 Potassium Chloride (Klor-Con) 40 meq 1X ONCE PO Last administered on 07/28/16 13:02; Start 07/28/16 at 11:30; Stop 07/28/16 at 11:31; Status DC Active Scripts Active Reported Lo-Dose Aspirin EC (Aspirin) 81 Mg Tablet.dr 81 Mg PO DAILY [Tumeric] 500 Mg PO HS Cymbalta (Duloxetine Hcl) 60 Mg Capsule.dr 60 Mg PO HS Amlodipine Besylate 5 Mg Tablet 5 Mg PO HS Montelukast Sodium Tablet (Montelukast Sodium) 10 Mg Tablet 10 Mg PO HS Calcium 1,000 + D3 Caplet (Calcium Carbonate/Vitamin D3) 1 Each Tablet 1 Each PO NOON Vitamin B-Complex & C (B Complex With Vitamin C) 1 Each Tablet.er 1 Each PO NOON Lipitor (Atorvastatin Calcium) 10 Mg Tablet 10 Mg PO NOON Osteo Bi-Flex Tablet (Glucosamine/D3/Boswellia Sharon) 1 Each Tablet 1 Each PO BIDACBL Aricept (Donepezil Hcl) 10 Mg Tablet 10 Mg PO DAILY Tramadol-Acetaminophn 37.5-325 (Tramadol Hcl/Acetaminophen) 1 Each Tablet 1 Tab PO HS Tramadol-Acetaminophn 37.5-325 (Tramadol Hcl/Acetaminophen) 1 Each Tablet 2 Tab PO [id number] Lisinopril 40 Mg Tablet 40 Mg PO DAILY Vitals/I & O Vital Sign - Last 24 Hours 07/27/16 07/27/16 07/27/16 07/27/16 15:00 15:00 16:19 19:00 Temp 97.5 97.5 98.8 97.5 97.5 98.8 Pulse 83 83 87 Resp 20 20 20 B/P 130/55 130/55 130/53 Pulse Ox 97 97 99 O2 Delivery Room Air Room Air Room Air Room Air 07/27/16 07/27/16 07/27/16 07/28/16 20:54 20:55 23:00 03:00 Temp 98.6 96.9 98.6 96.9 Pulse 87 89 84 Resp 18 20 20 B/P 130/53 108/52 114/56 Pulse Ox 90 98 O2 Delivery Room Air Room Air Room Air 07/28/16 07/28/16 07/28/16 07/28/16 07:08 07:30 09:05 09:06 Temp 98.8 98.8 Pulse 91 91 Resp 18 B/P 112/61 112/61 Pulse Ox 97 O2 Delivery Room Air Room Air Room Air 07/28/16 07/28/16 10:15 10:50 Temp 97.8 97.8 Pulse 81 Resp 18 B/P 117/55 Pulse Ox 100 O2 Delivery Room Air Room Air Intake and Output 07/27/16 07/27/16 07/28/16 15:00 23:00 07:00 Intake Total 550 ml 100 ml 100 ml Balance 550 ml 100 ml 100 ml Nutrition Consultation Dietary Evaluation: Recommendations by RD: Increase Calorie Intake, Protein supplementation Expected Outcomes/Goals: to meet > 75% est nutr needs Malnutrition Findings: Food and Nutrition Intake (Mod: <75% est energy req 7days Reduced Block Chopper Hand Strength: N/A Weight Status: Overweight Fluid Accumulation (N/A): N/A BASIA LE MD Jul 28, 2016 14:52
[2016-07-28 15:01] VITALS: BP 125/53
[2016-07-28 19:08] VITALS: BP 132/53
[2016-07-28] MEDS: ASPIRIN ENTERIC COATED 81 MG TABLET.DR. PO SCH (20:43)
[2016-07-28] MEDS: MONTELUKAST SODIUM 10 MG TABLET. PO SCH (20:43)
[2016-07-28] MEDS: DULOXETINE HCL 30 MG CAPSULE.DR. PO SCH (20:43)
[2016-07-28] MEDS: ATORVASTATIN CALCIUM 10 MG TABLET. PO SCH (20:43)
[2016-07-28] MEDS: AMLODIPINE BESYLATE 5 MG TABLET PO SCH (20:44)
[2016-07-28 23:00] VITALS: BP 124/45
[2016-07-29 02:48] VITALS: BP 107/56
[2016-07-29 02:49] LABS: BASO % 0 % (0-3); EOS % 0 % (0-3); HEMATOCRIT 27.8 % (36.0-47.0); HEMOGLOBIN 9.3 g/dL (12.0-15.5); LYMPH # 1.6 x10^3/uL (1.0-4.8); LYMPH % 10 % (24-48); MEAN CORPUSCULAR HEMOGLOBIN 28 pg (25-35); MEAN CORPUSCULAR HGB CONC 33 g/dL (31-37); MEAN CORPUSCULAR VOLUME 83 fL (79-100); MONO % 4 % (0-9); NEUT % 86 % (31-73); PLATELET COUNT 267 x10^3/uL (140-400); RED BLOOD COUNT 3.35 x10^6/uL (3.50-5.40); RED CELL DISTRIBUTION WIDTH 15.3 % (11.5-14.5); WHITE BLOOD COUNT 15.9 x10^3/uL (4.0-11.0)
[2016-07-29 03:03] LABS: CALCIUM 8.9 mg/dL (8.5-10.1); CREATININE 1.2 mg/dL (0.6-1.0); GFR 42.3; PHOSPHORUS 2.3 mg/dL (2.6-4.7); POTASSIUM 3.7 mmol/L (3.5-5.1)
[2016-07-29] MEDS: HEPARIN PF for SUB-Q USE 5,000 UNIT/0.5 ML VIAL. SQ SCH ×3 (05:33→19:52)
[2016-07-29 07:58] VITALS: BP 106/38
[2016-07-29] MEDS: AA 4.25%/CALCIUM/LYTES/D5W 1,000 ML IV SCH (08:30)
[2016-07-29] MEDS ORDERED: SODIUM PHOSPHATE 20 MMOL in IV DEXTROSE 5% 250 ML IV ONE (09:00)
[2016-07-29] MEDS: LISINOPRIL 40 MG TABLET. PO SCH (09:00)
[2016-07-29 11:16] VITALS: BP 101/47
[2016-07-29] MEDS: POTASSIUM PHOSPHATE DIBASIC 10 MMOL in IV NORMAL SALINE 100ML 100 ML IV SCH ×2 (12:49→17:30)
[2016-07-29] MEDS: ACETAMINOPHEN 325 MG TABLET. PO SCH ×2 (12:50→22:31)
[2016-07-29] MEDS: DONEPEZIL HCL 10 MG TABLET. PO SCH (12:51)
[2016-07-29] MEDS: TRAMADOL 50 MG TABLET. PO SCH ×2 (12:52→22:32)
[2016-07-29] MEDS: CEFTRIAXONE SODIUM 1 GM in IV NORMAL SALINE 50ML 50 ML IV SCH (13:00)
[2016-07-29] MEDS: CALCIUM CARB/VIT D3 500/200 TABLET PO SCH (13:24)
[2016-07-29] MEDS: VITAMIN B COMPLEX TABLET. PO SCH (13:24)
--- NOTE | 2016-07-29 13:30 | PDOC ---
PROGRESS NOTES Chief Complaint Chief Complaint 1. SIRS POA, no sepsis 2. UTI in an elderly 3. 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 HTN, controlled 6. Advanced dementia 7. SAMUEL, vasomotor 8. DNR 9. hypokalemia 10. hypophosphotemia PLAN: Rocephin Urine CX PT/OT SNU screen c./o SW - family agreeable Procalamine ppn BMP samantha AM Nutrition consult DVT prophy with heparin DNR REPLETE k replete Anuja History of Present Illness History of Present Illness very weak, hard to walk with PT today cr better , K 3.2 low anuja WBC better, + ucx Vitals Vitals Vital Signs Date Time Temp Pulse Resp B/P Pulse Ox O2 Delivery O2 Flow Rate FiO2 07/29/16 12:52 20 96 Room Air 07/29/16 11:16 98.1 89 101/47 98.1 Physical Exam Physical Exam AAOX1 General: Cooperative Heart: Regular rate, Normal S1 Lungs: Clear Abdomen: Normal bowel sounds, Soft, No tenderness, No hepatosplenomegaly, No masses Extremities: No clubbing, No cyanosis, No edema, Normal pulses, No tenderness/ swelling Skin: No rashes, No breakdown, No significant lesion Labs LABS Laboratory Tests Test 07/29/16 01:30 White Blood Count 15.9x10^3/uL (4.0-11.0) Red Blood Count 3.35x10^6/uL (3.50-5.40) Hemoglobin 9.3g/dL (12.0-15.5) Hematocrit 27.8% (36.0-47.0) Mean Corpuscular Volume 83fL (79-100) Mean Corpuscular Hemoglobin 28pg (25-35) Mean Corpuscular Hemoglobin Concent 33g/dL (31-37) Red Cell Distribution Width 15.3% (11.5-14.5) Platelet Count 267x10^3/uL (140-400) Neutrophils (%) (Auto) 86% (31-73) Lymphocytes (%) (Auto) 10% (24-48) Monocytes (%) (Auto) 4% (0-9) Eosinophils (%) (Auto) 0% (0-3) Basophils (%) (Auto) 0% (0-3) Neutrophils # (Auto) 13.6x10^3uL (1.8-7.7) Lymphocytes # (Auto) 1.6x10^3/uL (1.0-4.8) Monocytes # (Auto) 0.6x10^3/uL (0.0-1.1) Eosinophils # (Auto) 0.0x10^3/uL (0.0-0.7) Basophils # (Auto) 0.0x10^3/uL (0.0-0.2) Sodium Level 138mmol/L (136-145) Potassium Level 3.7mmol/L (3.5-5.1) Chloride Level 103mmol/L (98-107) Carbon Dioxide Level 28mmol/L (21-32) Anion Gap 7 (6-14) Blood Urea Nitrogen 44mg/dL (7-20) Creatinine 1.2mg/dL (0.6-1.0) Estimated GFR (Cockcroft-Gault) 42.3 Glucose Level 134mg/dL (70-99) Calcium Level 8.9mg/dL (8.5-10.1) Phosphorus Level 2.3mg/dL (2.6-4.7) Magnesium Level 2.0mg/dL (1.8-2.4) Review of Systems Review of Systems no fever, chills, sob or chest pain Assessment and Plan Assessmemt and Plan Problems Medical Problems: (1) Acute cystitis without hematuria Status: Acute (2) Altered mental status Status: Acute Problems: Comment Review of Relevant I have reviewed the following items raffaele (where applicable) has been applied. Labs Laboratory Tests Test 07/28/16 03:45 07/29/16 01:30 White Blood Count 16.4x10^3/uL (4.0-11.0) 15.9x10^3/uL (4.0-11.0) Red Blood Count 3.56x10^6/uL (3.50-5.40) 3.35x10^6/uL (3.50-5.40) Hemoglobin 10.0g/dL (12.0-15.5) 9.3g/dL (12.0-15.5) Hematocrit 30.0% (36.0-47.0) 27.8% (36.0-47.0) Mean Corpuscular Volume 85fL (79-100) 83fL (79-100) Mean Corpuscular Hemoglobin 28pg (25-35) 28pg (25-35) Mean Corpuscular Hemoglobin Concent 33g/dL (31-37) 33g/dL (31-37) Red Cell Distribution Width 15.9% (11.5-14.5) 15.3% (11.5-14.5) Platelet Count 278x10^3/uL (140-400) 267x10^3/uL (140-400) Neutrophils (%) (Auto) 89% (31-73) 86% (31-73) Lymphocytes (%) (Auto) 8% (24-48) 10% (24-48) Monocytes (%) (Auto) 4% (0-9) 4% (0-9) Eosinophils (%) (Auto) 0% (0-3) 0% (0-3) Basophils (%) (Auto) 0% (0-3) 0% (0-3) Neutrophils # (Auto) 14.6x10^3uL (1.8-7.7) 13.6x10^3uL (1.8-7.7) Lymphocytes # (Auto) 1.3x10^3/uL (1.0-4.8) 1.6x10^3/uL (1.0-4.8) Monocytes # (Auto) 0.6x10^3/uL (0.0-1.1) 0.6x10^3/uL (0.0-1.1) Eosinophils # (Auto) 0.0x10^3/uL (0.0-0.7) 0.0x10^3/uL (0.0-0.7) Basophils # (Auto) 0.0x10^3/uL (0.0-0.2) 0.0x10^3/uL (0.0-0.2) Sodium Level 143mmol/L (136-145) 138mmol/L (136-145) Potassium Level 3.2mmol/L (3.5-5.1) 3.7mmol/L (3.5-5.1) Chloride Level 107mmol/L (98-107) 103mmol/L (98-107) Carbon Dioxide Level 29mmol/L (21-32) 28mmol/L (21-32) Anion Gap 7 (6-14) 7 (6-14) Blood Urea Nitrogen 41mg/dL (7-20) 44mg/dL (7-20) Creatinine 1.2mg/dL (0.6-1.0) 1.2mg/dL (0.6-1.0) Estimated GFR (Cockcroft-Gault) 42.3 42.3 Glucose Level 136mg/dL (70-99) 134mg/dL (70-99) Calcium Level 9.1mg/dL (8.5-10.1) 8.9mg/dL (8.5-10.1) Phosphorus Level 2.3mg/dL (2.6-4.7) Magnesium Level 2.0mg/dL (1.8-2.4) Laboratory Tests Test 07/29/16 01:30 White Blood Count 15.9x10^3/uL (4.0-11.0) Red Blood Count 3.35x10^6/uL (3.50-5.40) Hemoglobin 9.3g/dL (12.0-15.5) Hematocrit 27.8% (36.0-47.0) Mean Corpuscular Volume 83fL (79-100) Mean Corpuscular Hemoglobin 28pg (25-35) Mean Corpuscular Hemoglobin Concent 33g/dL (31-37) Red Cell Distribution Width 15.3% (11.5-14.5) Platelet Count 267x10^3/uL (140-400) Neutrophils (%) (Auto) 86% (31-73) Lymphocytes (%) (Auto) 10% (24-48) Monocytes (%) (Auto) 4% (0-9) Eosinophils (%) (Auto) 0% (0-3) Basophils (%) (Auto) 0% (0-3) Neutrophils # (Auto) 13.6x10^3uL (1.8-7.7) Lymphocytes # (Auto) 1.6x10^3/uL (1.0-4.8) Monocytes # (Auto) 0.6x10^3/uL (0.0-1.1) Eosinophils # (Auto) 0.0x10^3/uL (0.0-0.7) Basophils # (Auto) 0.0x10^3/uL (0.0-0.2) Sodium Level 138mmol/L (136-145) Potassium Level 3.7mmol/L (3.5-5.1) Chloride Level 103mmol/L (98-107) Carbon Dioxide Level 28mmol/L (21-32) Anion Gap 7 (6-14) Blood Urea Nitrogen 44mg/dL (7-20) Creatinine 1.2mg/dL (0.6-1.0) Estimated GFR (Cockcroft-Gault) 42.3 Glucose Level 134mg/dL (70-99) Calcium Level 8.9mg/dL (8.5-10.1) Phosphorus Level 2.3mg/dL (2.6-4.7) Magnesium Level 2.0mg/dL (1.8-2.4) Microbiology 07/27/16 Urine Culture - Preliminary, Resulted 07/27/16 Urine Culture Result 1 (TRAE) - Preliminary, Resulted 07/27/16 Urine Culture Result 2 (TRAE) - Preliminary, Resulted Medications Current Medications Sodium Chloride 500 ml @ 500 mls/hr 1X ONCE IV Last administered on 07/27/16 11:27; Start 07/27/16 at 11:15; Stop 07/27/16 at 12:14; Status DC Ceftriaxone Sodium 1 gm/ Sodium Chloride 50 ml @ 100 mls/hr Q24H IV Last administered on 07/29/16 13:00; Start 07/28/16 at 13:00 Ceftriaxone Sodium (Rocephin 1gm Ivpb For Omni) 50 ml @ 100 mls/hr 1X ONCE IV Last administered on 07/27/16 13:14; Start 07/27/16 at 12:45; Stop 07/27/16 at 13:14; Status DC Ondansetron HCl (Zofran) 4 mg PRN Q8HRS PRN IV NAUSEA/VOMITING; Start 07/27/16 at 13:00; Stop 07/27/16 at 14:48; Status DC Acetaminophen (Tylenol) 650 mg PRN Q4HRS PRN PO FEVER; Start 07/27/16 at 13:00; Stop 07/28/16 at 12:59; Status DC Ondansetron HCl 4 mg 4 mg PRN Q6HRS PRN IV NAUSEA/VOMITING; Start 07/27/16 at 14 :45 Amino Acids/ Glycerin/ Electrolytes (Procalamine) 1,000 ml @ 80 mls/hr [id number] IV Last administered on 07/28/16 04:33; Start 07/27/16 at 15:00; Stop 07/28/16 at 07:17; Status DC Amlodipine Besylate (Norvasc) 5 mg HS PO Last administered on 07/28/16 20:44; Start 07/27/16 at 21:00 Aspirin (Ecotrin) 81 mg HS PO Last administered on 07/28/16 20:43; Start at 21:00 Atorvastatin Calcium (Lipitor) 10 mg QHS PO Last administered on 07/28/16 20:43 ; Start 07/27/16 at 21:00 Donepezil HCl (Aricept) 10 mg DAILY PO Last administered on 07/29/16 12:51; Start 07/27/16 at 15:30 Lisinopril (Prinivil) 40 mg DAILY PO Last administered on 07/28/16 09:06; Start 07/27/16 at 15:30 Montelukast Sodium (Singulair) 10 mg HS PO Last administered on 07/28/16 20:43 ; Start 07/27/16 at 21:00 Vitamin B Complex (Rufino B) 1 tab DAILY PO ; Start 07/28/16 at 09:00; Stop at 09:00; Status DC Calcium/Vitamin D (Oscal D 500mg/ 200uts) 2 tab DAILY PO ; Start 07/27/16 at 09: 00; Stop 07/27/16 at 15:45; Status DC Duloxetine HCl (Cymbalta) 30 mg QHS PO Last administered on 07/28/16 20:43; Start 07/27/16 at 21:00 Non-Formulary Medication 1 each BID92 PO ; Start 07/28/16 at 09:00; Status UNV Tramadol HCl (Ultram) 50 mg BID PO Last administered on 07/29/16 12:52; Start 07/27/16 at 21:00 Acetaminophen (Tylenol) 325 mg BID PO Last administered on 07/29/16 12:50; Start 07/27/16 at 21:00 Non-Formulary Medication 500 mg HS PO ; Start 07/27/16 at 21:00; Status UNV Heparin Sodium (Porcine) 5,000 unit Q8HRS SQ Last administered on 07/29/16 05: 33; Start 07/27/16 at 22:00 Calcium/Vitamin D (Oscal D 500mg/ 200uts) 2 tab NOON PO Last administered on 13:24; Start 07/27/16 at 16:00 Vitamin B Complex 1 tab 1 tab NOON PO Last administered on 07/29/16 13:24; Start 07/28/16 at 12:00 Amino Acids/ Electrolytes/ Dextrose (Clinimix E 4.25%-5% Solution) 1,000 ml @ 80 mls/hr [id number] IV Last administered on 07/29/16 08:30; Start 07/28/16 at 07: 30 Potassium Chloride 40 meq 40 meq 1X ONCE PO Last administered on 07/28/16 13: 02; Start 07/28/16 at 11:30; Stop 07/28/16 at 11:31; Status DC Potassium Phosphate 10 mmol/ Sodium Chloride 103.3333 ml @ 51.667 m... Q2H IV Last administered on 07/29/16 12:49; Start 07/29/16 at 09:00; Stop 07/29/16 at 12: 59; Status DC Sodium Phosphate/ Dextrose 256.6667 ml @ 64.167 m... 1X ONCE IV ; Start at 09:00; Stop 07/29/16 at 12:59; Status DC Active Scripts Active Reported Lo-Dose Aspirin EC (Aspirin) 81 Mg Tablet.dr 81 Mg PO DAILY [Tumeric] 500 Mg PO HS Cymbalta (Duloxetine Hcl) 60 Mg Capsule.dr 60 Mg PO HS Amlodipine Besylate 5 Mg Tablet 5 Mg PO HS Montelukast Sodium Tablet (Montelukast Sodium) 10 Mg Tablet 10 Mg PO HS Calcium 1,000 + D3 Caplet (Calcium Carbonate/Vitamin D3) 1 Each Tablet 1 Each PO NOON Vitamin B-Complex & C (B Complex With Vitamin C) 1 Each Tablet.er 1 Each PO NOON Lipitor (Atorvastatin Calcium) 10 Mg Tablet 10 Mg PO NOON Osteo Bi-Flex Tablet (Glucosamine/D3/Boswellia Sharon) 1 Each Tablet 1 Each PO BIDACBL Aricept (Donepezil Hcl) 10 Mg Tablet 10 Mg PO DAILY Tramadol-Acetaminophn 37.5-325 (Tramadol Hcl/Acetaminophen) 1 Each Tablet 1 Tab PO HS Tramadol-Acetaminophn 37.5-325 (Tramadol Hcl/Acetaminophen) 1 Each Tablet 2 Tab PO DAILYWBKFT Lisinopril 40 Mg Tablet 40 Mg PO DAILY Vitals/I & O Vital Sign - Last 24 Hours 07/28/16 07/28/16 07/28/16 07/28/16 15:01 19:08 19:40 20:42 Temp 97.9 100.2 99.3 97.9 100.2 99.3 Pulse 86 99 Resp 18 20 18 B/P 125/53 132/53 Pulse Ox 97 96 O2 Delivery Room Air Room Air Room Air 07/28/16 07/28/16 07/29/16 07/29/16 20:44 23:00 02:48 07:58 Temp 99.3 98.2 98.3 99.3 98.2 98.3 Pulse 99 99 87 95 Resp 18 18 B/P 132/53 124/45 107/56 106/38 Pulse Ox 93 95 95 O2 Delivery Room Air Room Air Room Air 07/29/16 07/29/16 07/29/16 09:00 11:16 12:52 Temp 98.1 98.1 Pulse 88 89 Resp 16 20 B/P 101/47 101/47 Pulse Ox 96 96 O2 Delivery Room Air Room Air Intake and Output 07/28/16 07/28/16 07/29/16 15:00 23:00 07:00 Intake Total 1700 ml 440 ml 270 ml Balance 1700 ml 440 ml 270 ml Nutrition Consultation Dietary Evaluation: Recommendations by RD: Increase Calorie Intake, Protein supplementation Expected Outcomes/Goals: to meet > 75% est nutr needs Malnutrition Findings: Food and Nutrition Intake (Mod: <75% est energy req 7days Reduced T[place] Strength: N/A Weight Status: Overweight Fluid Accumulation (N/A): N/A BASIA LE MD Jul 29, 2016 13:30
[2016-07-29 15:26] VITALS: BP 111/54
[2016-07-29 19:00] VITALS: BP 121/56
[2016-07-29] MEDS: ATORVASTATIN CALCIUM 10 MG TABLET. PO SCH (22:31)
[2016-07-29] MEDS: MONTELUKAST SODIUM 10 MG TABLET. PO SCH (22:31)
[2016-07-29] MEDS: ASPIRIN ENTERIC COATED 81 MG TABLET.DR. PO SCH (22:42)
[2016-07-29] MEDS: DULOXETINE HCL 30 MG CAPSULE.DR. PO SCH (22:42)
[2016-07-29 23:00] VITALS: BP 128/52
[2016-07-30 00:25] LABS: BILIRUBIN,URINE NEGATIVE (NEG); GLUCOSE,URINE NEGATIVE (NEG); NITRITE,URINE NEGATIVE (NEG); PH,URINE 5.5; PROTEIN,URINE 30 mg/dL (NEG-TRACE); UROBILINOGEN,URINE 0.2 mg/dL (0.2 mg/dL)
[2016-07-30 00:34] LABS: RBC,URINE TNTC /HPF (0-2); WBC,URINE >40 /HPF (0-4)
[2016-07-30 00:35] LABS: BACTERIA,URINE 0 /HPF (0-FEW); SQUAMOUS EPITHELIAL CELL,UR MOD /LPF
[2016-07-30 02:55] VITALS: BP 125/59
[2016-07-30 03:54] LABS: HEMATOCRIT 28.7 % (36.0-47.0); HEMOGLOBIN 9.4 g/dL (12.0-15.5); RED BLOOD COUNT 3.36 x10^6/uL (3.50-5.40); RED CELL DISTRIBUTION WIDTH 15.7 % (11.5-14.5); WHITE BLOOD COUNT 12.5 x10^3/uL (4.0-11.0)
[2016-07-30 04:34] LABS: CALCIUM 8.9 mg/dL (8.5-10.1); CREATININE 1.2 mg/dL (0.6-1.0); GFR 42.3; PHOSPHORUS 4.7 mg/dL (2.6-4.7); POTASSIUM 3.7 mmol/L (3.5-5.1)
[2016-07-30] MEDS: AA 4.25%/CALCIUM/LYTES/D5W 1,000 ML IV SCH ×3 (06:32→22:11)
[2016-07-30] MEDS: HEPARIN PF for SUB-Q USE 5,000 UNIT/0.5 ML VIAL. SQ SCH ×3 (06:36→21:03)
[2016-07-30 07:00] VITALS: BP 122/59
[2016-07-30] MEDS: TRAMADOL 50 MG TABLET. PO SCH ×2 (09:00→21:00)
[2016-07-30] MEDS: DONEPEZIL HCL 10 MG TABLET. PO SCH (09:00)
[2016-07-30] MEDS: LISINOPRIL 40 MG TABLET. PO SCH (09:00)
[2016-07-30] MEDS: ACETAMINOPHEN 325 MG TABLET. PO SCH ×2 (09:00→21:00)
--- NOTE | 2016-07-30 09:24 | RAD ---
PROCEDURE Brain MRI without contrast. HISTORY Altered mental status. TECHNIQUE Multiplanar and multi sequence magnetic resonance imaging of the brain was performed without contrast. COMPARISON CT dated 05/09/2016. FINDINGS There are innumerable scattered focal areas restricted diffusion throughout the cerebral and cerebellar hemispheres, consistent with acute or subacute infarcts. These involve the bilateral cerebral cortex and deep and subcortical white matter as well as the periventricular white matter, bilateral basal ganglia, and corpus callosum. There is somewhat gyriform susceptibility effect within the bilateral parietal lobe cortex which may be due to early laminar necrosis or microhemorrhage. There are few additional foci of suspected chronic microhemorrhage within the cerebral hemispheres. There is extensive T2/FLAIR hyperintensity throughout the cerebral white matter and georgie, likely due to chronic small vessel disease. There are chronic infarcts within the cerebellar hemispheres, left georgie and basal ganglia. There is cerebral atrophy with compensatory enlargement of the ventricles. There is asymmetric enlargement of the right temporal horn likely due to right temporal lobe predominant volume loss. There is no midline shift. There are findings consistent with lens surgery. The paranasal sinuses and mastoid air cells are unremarkable. There are flow voids within the cerebral vessels. IMPRESSION 1. Multiple extensive small scattered areas of acute or subacute infarction throughout the cerebral and cerebellar hemispheres, described in detail above. There may be superimposed early laminar necrosis or microhemorrhage involving bilateral parietal lobe infarcts. 2. Extensive signal change throughout the cerebral white matter and georgie, likely due to chronic small vessel disease. 3. Scattered foci of suspected chronic microhemorrhage within the cerebral hemispheres. 4. Cerebral atrophy. There is asymmetric dilatation of the temporal horn of the right lateral ventricle likely due to right temporal lobe predominant volume loss. 5. Limited exam due to motion and utilization of a rapid imaging protocol. Findings were discussed with Hailey, the nurse caring for the patient,at 0920 hours on 07/30/2016. Electronically signed by: Vijaya Torres (Jul 30, 2016 09:23:28)
[2016-07-30] MEDS ORDERED: ASPIRIN 325 MG TABLET PO ONE (10:00)
[2016-07-30] MEDS: CLOPIDOGREL BISULFATE 75 MG TABLET PO SCH (11:00)
--- NOTE | 2016-07-30 11:02 | PDOC2 ---
TA GARCIA [employer]NER 07/30/16 1102: CARDIAC CONSULT DATE OF CONSULT Date of Consult DATE: 07/30/16 TIME: 10:54 REASON FOR CONSULT Reason for Consult: embolic infarcts REFERRING PHYSICIAN Referring Physician: Dr. John SOURCE Source: Chart review, Patient HISTORY OF PRESENT ILLNESS HISTORY OF PRESENT ILLNESS This is an 89 yo female, with a history of Alzheimer's who was brought in by family secondary to altered mental status. HPI obtain from chart review as patient is non-responsive and family not at bedside. Has been more confused with less activity and decreased intake over the last couple of days. Has been mainly in bed over the last couple of days. Family concerned of possible UTI as this is her normal presentations. PAST MEDICAL HISTORY Cardiovascular: HTN, Hyperlipidemia Pulmonary: No pertinent hx CENTRAL NERVOUS SYSTEM: CVA, Dementia (Alzheimers ), TIA, Other (ICH.) Heme/Onc: No pertinent hx Hepatobiliary: No pertinent hx Psych: No pertinent hx Musculoskeletal: Osteoarthritis Infectious disease: No pertinent hx ENT: No pertinent hx Renal/: Urinary Incontinence Endocrine: No pertinent hx Dermatology: No pertinent hx PAST SURGICAL HISTORY Past Surgical History: Other (unknown) FAMILY HISTORY Family History: Family History Unknown SOCIAL HISTORY Lives: with Family ALLERGIES ALLERGIES: Coded Allergies: No Known Drug Allergies (Unverified , 05/10/16) ROS Review of System unobtainable PHYSICAL EXAM General: No acute distress HEENT: Atraumatic, Mucous membr. moist/pink Lungs: Other (bibasilar crackles ) Heart: Regular rate, Normal S1, Normal S2, Other (2/6 systolic murmur ) Abdomen: Soft Skin: No significant lesion, Other (trace LE edema ) Neuro: Other (unable to assess ) Psych/Mental Status: Other (only responsive to painful stimuli) MUSCULOSKELETAL: Osteoarthritic changes both hands VITALS VITALS Vital Signs Date Time Temp Pulse Resp B/P Pulse Ox O2 Delivery O2 Flow Rate FiO2 07/30/16 07:00 100.9 97 24 122/59 90 Room Air 100.9 LABS Lab: Laboratory Tests Test 07/30/16 00:10 07/30/16 02:45 Urine Collection Type Unknown Urine Color Red Urine Clarity Turbid Urine pH 5.5 Urine Specific [place] 1.015 Urine Protein 30mg/dL (NEG-TRACE) Urine Glucose (UA) Negativemg/dL (NEG) Urine Ketones (Stick) Negativemg/dL (NEG) Urine Blood Large (NEG) Urine Nitrite Negative (NEG) Urine Bilirubin Negative (NEG) Urine Urobilinogen Dipstick 0.2mg/dL (0.2 mg/dL) Urine Leukocyte Esterase Large (NEG) Urine RBC Tntc/HPF (0-2) Urine WBC >40/HPF (0-4) Urine Squamous Epithelial Cells Mod/LPF Urine Bacteria 0/HPF (0-FEW) Urine Hyaline Casts Occasional/HPF Urine Mucus Mod/LPF White Blood Count 12.5x10^3/uL (4.0-11.0) Red Blood Count 3.36x10^6/uL (3.50-5.40) Hemoglobin 9.4g/dL (12.0-15.5) Hematocrit 28.7% (36.0-47.0) Mean Corpuscular Volume 85fL (79-100) Mean Corpuscular Hemoglobin 28pg (25-35) Mean Corpuscular Hemoglobin Concent 33g/dL (31-37) Red Cell Distribution Width 15.7% (11.5-14.5) Platelet Count 216x10^3/uL (140-400) Sodium Level 141mmol/L (136-145) Potassium Level 3.7mmol/L (3.5-5.1) Chloride Level 105mmol/L (98-107) Carbon Dioxide Level 28mmol/L (21-32) Anion Gap 8 (6-14) Blood Urea Nitrogen 37mg/dL (7-20) Creatinine 1.2mg/dL (0.6-1.0) Estimated GFR (Cockcroft-Gault) 42.3 Glucose Level 140mg/dL (70-99) Calcium Level 8.9mg/dL (8.5-10.1) Phosphorus Level 4.7mg/dL (2.6-4.7) Vitamin B12 Level 649pg/mL (247-911) Thyroid Stimulating Hormone (TSH) 1.859uIU/mL (0.358-3.74) ECHOCARDIOGRAM ECHOCARDIOGRAM <Conclusion> The left ventricle is normal size. There is mild to moderate concentric left ventricular hypertrophy. The left ventricular systolic function is normal and the ejection fraction is within normal range. The Ejection Fraction is 60-65%. Transmitral Doppler flow pattern is Grade I-abnormal relaxation pattern. There is no evidence of significant pericardial effusion. There is moderate mitral valve stenosis. Calculated mitral valve area is 1.4 cm2 with maximum pressure gradient of 12 mmHg and mean pressure gradient of 3 mmHg. Doppler and Color-flow revealed mild to moderate mitral regurgitation. The left atrium is mildly enlarged There is no aortic stenosis or regurgitation Doppler and Color Flow revealed mild tricuspid regurgitation. There is moderate pulmonary hypertension. The PA pressure was estimated at 45 mmHg. Doppler and Color Flow revealed mild pulmonic valvular regurgitation. DATE: 05/11/162015 ASSESSMENT/PLAN ASSESSMENT/PLAN 1. Embolic infarcts echo with moderate LVH. EF 60-65% not on tele- will place now. non indication for bubble study given advance age and multiple comorbidities on ASA and Plavix per neurology. consider event monitor at d/c to r/o contributing arrhythmia 2. Altered mental status, metabolic encephalopathy Brain MRI notable for embolic infarcts UTI contributing? per neurology 3. Moderate mitral valve stenosis mitral valve area is 1.4 cm2 with maximum pressure gradient of 12 mmHg and mean pressure gradient of 3 mmHg. medication management 4. Hypertension controlled 5. Leukocytosis, UTI IV antibiotic therapy 6. Dementia, advanced on aricept 7. SAMUEL Problems: LIDIA CHIU MD 07/30/16 1616: CARDIAC CONSULT ALLERGIES ALLERGIES: Coded Allergies: No Known Drug Allergies (Unverified , 05/10/16) ASSESSMENT/PLAN ASSESSMENT/PLAN Patient seen and examined. Agree with DRY MIXER's assessment and plan. 2-D echo showed normal LV function. Telemetry did not show any arrhythmia so far. Plan for event monitor as an outpatient to rule out atrial fibrillation as a cause for her embolic CVA. Thank you for your consultation. Problems: TA GARCIA APRN Jul 30, 2016 11:02 LIDIA CHIU MD Jul 30, 2016 16:16
[2016-07-30 11:40] LABS: OBC FLU VALID
[2016-07-30] MEDS: CALCIUM CARB/VIT D3 500/200 TABLET PO SCH (12:00)
[2016-07-30] MEDS: VITAMIN B COMPLEX TABLET. PO SCH (12:00)
[2016-07-30] MEDS: CEFTRIAXONE SODIUM 1 GM in IV NORMAL SALINE 50ML 50 ML IV SCH (13:00)
[2016-07-30] MEDS: METOPROLOL TART IMMED RELEASE 25 MG TABLET PO SCH ×2 (13:30→21:00)
--- NOTE | 2016-07-30 14:12 | PDOC ---
PROGRESS NOTES Chief Complaint Chief Complaint 1. SIRS POA, no sepsis 2. UTI in an elderly 3. 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 HTN, controlled 6. Advanced dementia 7. SAMUEL, vasomotor 8. DNR 9. hypokalemia 10. hypophosphotemia 11. 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, plz possible asp PNA PLAN: dcRocephin, add meropenum, id consult PT/OT SNU screen c./o SW - family agreeable Procalamine, npo, swallow eval when wake up BMP samantha AM Nutrition consult DVT prophy with heparin DNR REPLETE k replete Anuja Carotid us, echo PAT consult talked to YAZMIN, WHo is a freind, saying family doesnot want PEG repeated ucx, bcx History of Present Illness History of Present Illness very weak, hard to walk with PT today cr better , K 3.2 low anuja WBC better, + ucx fever since 07/29, weaker, got ucx ,bcx unresponsive since 07/30 + multiple stroke on MRI Vitals Vitals Vital Signs Date Time Temp Pulse Resp B/P Pulse Ox O2 Delivery O2 Flow Rate FiO2 07/30/16 08:00 Room Air 07/30/16 07:00 100.9 97 24 122/59 90 100.9 Physical Exam Physical Exam AAOX1 General: No acute distress Heart: Regular rate, Normal S1, Normal S2, Other (2/6 systolic murmur ) Lungs: Clear Abdomen: Soft Extremities: No clubbing, No cyanosis, No edema, Normal pulses, No tenderness/ swelling Skin: No significant lesion, Other (trace LE edema ) Labs LABS Laboratory Tests Test 07/30/16 00:10 07/30/16 02:45 07/30/16 10:17 Urine Collection Type Unknown Urine Color Red Urine Clarity Turbid Urine pH 5.5 Urine Specific [place] 1.015 Urine Protein 30mg/dL (NEG-TRACE) Urine Glucose (UA) Negativemg/dL (NEG) Urine Ketones (Stick) Negativemg/dL (NEG) Urine Blood Large (NEG) Urine Nitrite Negative (NEG) Urine Bilirubin Negative (NEG) Urine Urobilinogen Dipstick 0.2mg/dL (0.2 mg/dL) Urine Leukocyte Esterase Large (NEG) Urine RBC Tntc/HPF (0-2) Urine WBC >40/HPF (0-4) Urine Squamous Epithelial Cells Mod/LPF Urine Bacteria 0/HPF (0-FEW) Urine Hyaline Casts Occasional/HPF Urine Mucus Mod/LPF White Blood Count 12.5x10^3/uL (4.0-11.0) Red Blood Count 3.36x10^6/uL (3.50-5.40) Hemoglobin 9.4g/dL (12.0-15.5) Hematocrit 28.7% (36.0-47.0) Mean Corpuscular Volume 85fL (79-100) Mean Corpuscular Hemoglobin 28pg (25-35) Mean Corpuscular Hemoglobin Concent 33g/dL (31-37) Red Cell Distribution Width 15.7% (11.5-14.5) Platelet Count 216x10^3/uL (140-400) Sodium Level 141mmol/L (136-145) Potassium Level 3.7mmol/L (3.5-5.1) Chloride Level 105mmol/L (98-107) Carbon Dioxide Level 28mmol/L (21-32) Anion Gap 8 (6-14) Blood Urea Nitrogen 37mg/dL (7-20) Creatinine 1.2mg/dL (0.6-1.0) Estimated GFR (Cockcroft-Gault) 42.3 Glucose Level 140mg/dL (70-99) Calcium Level 8.9mg/dL (8.5-10.1) Phosphorus Level 4.7mg/dL (2.6-4.7) Vitamin B12 Level 649pg/mL (247-911) Thyroid Stimulating Hormone (TSH) 1.859uIU/mL (0.358-3.74) Influenza Type A Antigen Negative (NEGATIVE) Influenza Type B Antigen Negative (NEGATIVE) Review of Systems Review of Systems no fever, chills, sob or chest pain Assessment and Plan Assessmemt and Plan Problems Medical Problems: (1) Acute cystitis without hematuria Status: Acute (2) Altered mental status Status: Acute Problems: Comment Review of Relevant I have reviewed the following items raffaele (where applicable) has been applied. Labs Laboratory Tests Test 07/29/16 01:30 07/30/16 00:10 07/30/16 02:45 07/30/16 10:17 White Blood Count 15.9x10^3/uL (4.0-11.0) 12.5x10^3/uL (4.0-11.0) Red Blood Count 3.35x10^6/uL (3.50-5.40) 3.36x10^6/uL (3.50-5.40) Hemoglobin 9.3g/dL (12.0-15.5) 9.4g/dL (12.0-15.5) Hematocrit 27.8% (36.0-47.0) 28.7% (36.0-47.0) Mean Corpuscular Volume 83fL (79-100) 85fL (79-100) Mean Corpuscular Hemoglobin 28pg (25-35) 28pg (25-35) Mean Corpuscular Hemoglobin Concent 33g/dL (31-37) 33g/dL (31-37) Red Cell Distribution Width 15.3% (11.5-14.5) 15.7% (11.5-14.5) Platelet Count 267x10^3/uL (140-400) 216x10^3/uL (140-400) Neutrophils (%) (Auto) 86% (31-73) Lymphocytes (%) (Auto) 10% (24-48) Monocytes (%) (Auto) 4% (0-9) Eosinophils (%) (Auto) 0% (0-3) Basophils (%) (Auto) 0% (0-3) Neutrophils # (Auto) 13.6x10^3uL (1.8-7.7) Lymphocytes # (Auto) 1.6x10^3/uL (1.0-4.8) Monocytes # (Auto) 0.6x10^3/uL (0.0-1.1) Eosinophils # (Auto) 0.0x10^3/uL (0.0-0.7) Basophils # (Auto) 0.0x10^3/uL (0.0-0.2) Sodium Level 138mmol/L (136-145) 141mmol/L (136-145) Potassium Level 3.7mmol/L (3.5-5.1) 3.7mmol/L (3.5-5.1) Chloride Level 103mmol/L (98-107) 105mmol/L (98-107) Carbon Dioxide Level 28mmol/L (21-32) 28mmol/L (21-32) Anion Gap 7 (6-14) 8 (6-14) Blood Urea Nitrogen 44mg/dL (7-20) 37mg/dL (7-20) Creatinine 1.2mg/dL (0.6-1.0) 1.2mg/dL (0.6-1.0) Estimated GFR (Cockcroft-Gault) 42.3 42.3 Glucose Level 134mg/dL (70-99) 140mg/dL (70-99) Calcium Level 8.9mg/dL (8.5-10.1) 8.9mg/dL (8.5-10.1) Phosphorus Level 2.3mg/dL (2.6-4.7) 4.7mg/dL (2.6-4.7) Magnesium Level 2.0mg/dL (1.8-2.4) Urine Collection Type Unknown Urine Color Red Urine Clarity Turbid Urine pH 5.5 Urine Specific [place] 1.015 Urine Protein 30mg/dL (NEG-TRACE) Urine Glucose (UA) Negativemg/dL (NEG) Urine Ketones (Stick) Negativemg/dL (NEG) Urine Blood Large (NEG) Urine Nitrite Negative (NEG) Urine Bilirubin Negative (NEG) Urine Urobilinogen Dipstick 0.2mg/dL (0.2 mg/dL) Urine Leukocyte Esterase Large (NEG) Urine RBC Tntc/HPF (0-2) Urine WBC >40/HPF (0-4) Urine Squamous Epithelial Cells Mod/LPF Urine Bacteria 0/HPF (0-FEW) Urine Hyaline Casts Occasional/HPF Urine Mucus Mod/LPF Vitamin B12 Level 649pg/mL (247-911) Thyroid Stimulating Hormone (TSH) 1.859uIU/mL (0.358-3.74) Influenza Type A Antigen Negative (NEGATIVE) Influenza Type B Antigen Negative (NEGATIVE) Laboratory Tests Test 07/30/16 00:10 07/30/16 02:45 07/30/16 10:17 Urine Collection Type Unknown Urine Color Red Urine Clarity Turbid Urine pH 5.5 Urine Specific [place] 1.015 Urine Protein 30mg/dL (NEG-TRACE) Urine Glucose (UA) Negativemg/dL (NEG) Urine Ketones (Stick) Negativemg/dL (NEG) Urine Blood Large (NEG) Urine Nitrite Negative (NEG) Urine Bilirubin Negative (NEG) Urine Urobilinogen Dipstick 0.2mg/dL (0.2 mg/dL) Urine Leukocyte Esterase Large (NEG) Urine RBC Tntc/HPF (0-2) Urine WBC >40/HPF (0-4) Urine Squamous Epithelial Cells Mod/LPF Urine Bacteria 0/HPF (0-FEW) Urine Hyaline Casts Occasional/HPF Urine Mucus Mod/LPF White Blood Count 12.5x10^3/uL (4.0-11.0) Red Blood Count 3.36x10^6/uL (3.50-5.40) Hemoglobin 9.4g/dL (12.0-15.5) Hematocrit 28.7% (36.0-47.0) Mean Corpuscular Volume 85fL (79-100) Mean Corpuscular Hemoglobin 28pg (25-35) Mean Corpuscular Hemoglobin Concent 33g/dL (31-37) Red Cell Distribution Width 15.7% (11.5-14.5) Platelet Count 216x10^3/uL (140-400) Sodium Level 141mmol/L (136-145) Potassium Level 3.7mmol/L (3.5-5.1) Chloride Level 105mmol/L (98-107) Carbon Dioxide Level 28mmol/L (21-32) Anion Gap 8 (6-14) Blood Urea Nitrogen 37mg/dL (7-20) Creatinine 1.2mg/dL (0.6-1.0) Estimated GFR (Cockcroft-Gault) 42.3 Glucose Level 140mg/dL (70-99) Calcium Level 8.9mg/dL (8.5-10.1) Phosphorus Level 4.7mg/dL (2.6-4.7) Vitamin B12 Level 649pg/mL (247-911) Thyroid Stimulating Hormone (TSH) 1.859uIU/mL (0.358-3.74) Influenza Type A Antigen Negative (NEGATIVE) Influenza Type B Antigen Negative (NEGATIVE) Microbiology 07/29/16 Blood Culture - Preliminary, Resulted NO GROWTH AFTER 1 DAY 07/27/16 Urine Culture - Preliminary, Resulted 07/27/16 Urine Culture Result 1 (TRAE) - Preliminary, Resulted 07/27/16 Urine Culture Result 2 (TRAE) - Preliminary, Resulted 07/27/16 Antimicrobic Susceptibility - Preliminary, Resulted Medications Current Medications Sodium Chloride 500 ml @ 500 mls/hr 1X ONCE IV Last administered on 07/27/16 11:27; Start 07/27/16 at 11:15; Stop 07/27/16 at 12:14; Status DC Ceftriaxone Sodium 1 gm/ Sodium Chloride 50 ml @ 100 mls/hr Q24H IV Last administered on 07/29/16 13:00; Start 07/28/16 at 13:00 Ceftriaxone Sodium (Rocephin 1gm Ivpb For Omni) 50 ml @ 100 mls/hr 1X ONCE IV Last administered on 07/27/16 13:14; Start 07/27/16 at 12:45; Stop 07/27/16 at 13:14; Status DC Ondansetron HCl (Zofran) 4 mg PRN Q8HRS PRN IV NAUSEA/VOMITING; Start 07/27/16 at 13:00; Stop 07/27/16 at 14:48; Status DC Acetaminophen (Tylenol) 650 mg PRN Q4HRS PRN PO FEVER; Start 07/27/16 at 13:00; Stop 07/28/16 at 12:59; Status DC Ondansetron HCl 4 mg 4 mg PRN Q6HRS PRN IV NAUSEA/VOMITING; Start 07/27/16 at 14 :45 Amino Acids/ Glycerin/ Electrolytes (Procalamine) 1,000 ml @ 80 mls/hr [id number] IV Last administered on 07/28/16 04:33; Start 07/27/16 at 15:00; Stop 07/28/16 at 07:17; Status DC Amlodipine Besylate (Norvasc) 5 mg HS PO Last administered on 07/28/16 20:44; Start 07/27/16 at 21:00; Stop 07/29/16 at 13:30; Status DC Aspirin (Ecotrin) 81 mg HS PO Last administered on 07/29/16 22:42; Start at 21:00 Atorvastatin Calcium (Lipitor) 10 mg QHS PO Last administered on 07/29/16 22:31 ; Start 07/27/16 at 21:00 Donepezil HCl (Aricept) 10 mg DAILY PO Last administered on 07/29/16 12:51; Start 07/27/16 at 15:30 Lisinopril (Prinivil) 40 mg DAILY PO Last administered on 07/28/16 09:06; Start 07/27/16 at 15:30 Montelukast Sodium (Singulair) 10 mg HS PO Last administered on 07/29/16 22:31 ; Start 07/27/16 at 21:00 Vitamin B Complex (Rufino B) 1 tab DAILY PO ; Start 07/28/16 at 09:00; Stop at 09:00; Status DC Calcium/Vitamin D (Oscal D 500mg/ 200uts) 2 tab DAILY PO ; Start 07/27/16 at 09: 00; Stop 07/27/16 at 15:45; Status DC Duloxetine HCl (Cymbalta) 30 mg QHS PO Last administered on 07/29/16 22:42; Start 07/27/16 at 21:00 Non-Formulary Medication 1 each BID92 PO ; Start 07/28/16 at 09:00; Status UNV Tramadol HCl (Ultram) 50 mg BID PO Last administered on 07/29/16 22:32; Start 07/27/16 at 21:00 Acetaminophen (Tylenol) 325 mg BID PO Last administered on 07/29/16 22:31; Start 07/27/16 at 21:00 Non-Formulary Medication 500 mg HS PO ; Start 07/27/16 at 21:00; Status UNV Heparin Sodium (Porcine) 5,000 unit Q8HRS SQ Last administered on 07/30/16 06: 36; Start 07/27/16 at 22:00 Calcium/Vitamin D (Oscal D 500mg/ 200uts) 2 tab NOON PO Last administered on 13:24; Start 07/27/16 at 16:00 Vitamin B Complex 1 tab 1 tab NOON PO Last administered on 07/29/16 13:24; Start 07/28/16 at 12:00 Amino Acids/ Electrolytes/ Dextrose (Clinimix E 4.25%-5% Solution) 1,000 ml @ 80 mls/hr [id number] IV Last administered on 07/30/16 06:32; Start 07/28/16 at 07: 30 Potassium Chloride 40 meq 40 meq 1X ONCE PO Last administered on 07/28/16 13: 02; Start 07/28/16 at 11:30; Stop 07/28/16 at 11:31; Status DC Potassium Phosphate 10 mmol/ Sodium Chloride 103.3333 ml @ 51.667 m... Q2H IV Last administered on 07/29/16 17:30; Start 07/29/16 at 09:00; Stop 07/29/16 at 12: 59; Status DC Sodium Phosphate/ Dextrose 256.6667 ml @ 64.167 m... 1X ONCE IV Last administered on 07/29/16 20:03; Start 07/29/16 at 09:00; Stop 07/29/16 at 12:59; Status DC Aspirin (Riana Aspirin) 325 mg 1X ONCE PO ; Start 07/30/16 at 10:00; Stop 07/30 at 10:01; Status DC Clopidogrel Bisulfate (Plavix) 75 mg DAILYWBKFT PO ; Start 07/30/16 at 11:00 Metoprolol Tartrate (Lopressor) 12.5 mg BID PO ; Start 07/30/16 at 13:30 Active Scripts Active Reported Lo-Dose Aspirin EC (Aspirin) 81 Mg Tablet.dr 81 Mg PO DAILY [Tumeric] 500 Mg PO HS Cymbalta (Duloxetine Hcl) 60 Mg Capsule.dr 60 Mg PO HS Amlodipine Besylate 5 Mg Tablet 5 Mg PO HS Montelukast Sodium Tablet (Montelukast Sodium) 10 Mg Tablet 10 Mg PO HS Calcium 1,000 + D3 Caplet (Calcium Carbonate/Vitamin D3) 1 Each Tablet 1 Each PO NOON Vitamin B-Complex & C (B Complex With Vitamin C) 1 Each Tablet.er 1 Each PO NOON Lipitor (Atorvastatin Calcium) 10 Mg Tablet 10 Mg PO NOON Osteo Bi-Flex Tablet (Glucosamine/D3/Boswellia Sharon) 1 Each Tablet 1 Each PO BIDACBL Aricept (Donepezil Hcl) 10 Mg Tablet 10 Mg PO DAILY Tramadol-Acetaminophn 37.5-325 (Tramadol Hcl/Acetaminophen) 1 Each Tablet 1 Tab PO HS Tramadol-Acetaminophn 37.5-325 (Tramadol Hcl/Acetaminophen) 1 Each Tablet 2 Tab PO DAILYWBKFT Lisinopril 40 Mg Tablet 40 Mg PO DAILY Vitals/I & O Vital Sign - Last 24 Hours 07/29/16 07/29/16 07/29/16 07/29/16 15:26 19:00 20:00 22:32 Temp 98.1 99.9 98.1 99.9 Pulse 92 91 Resp 24 18 B/P 111/54 121/56 Pulse Ox 94 95 O2 Delivery Room Air Room Air Room Air Room Air 07/29/16 07/29/16 07/30/16 07/30/16 23:00 23:32 02:55 07:00 Temp 101.1 99.1 100.9 101.1 99.1 100.9 Pulse 101 95 97 Resp 18 18 24 B/P 128/52 125/59 122/59 Pulse Ox 94 93 90 O2 Delivery Room Air Room Air Room Air Room Air 07/30/16 08:00 O2 Delivery Room Air Intake and Output 07/29/16 07/29/16 07/30/16 15:00 23:00 07:00 Intake Total 103 ml 343 ml Balance 103 ml 343 ml Nutrition Consultation Dietary Evaluation: Recommendations by RD: Increase Calorie Intake, Protein supplementation Expected Outcomes/Goals: to meet > 75% est nutr needs Malnutrition Findings: Food and Nutrition Intake (Mod: <75% est energy req 7days Reduced Environmental Economist Strength: N/A Weight Status: Overweight Fluid Accumulation (N/A): N/A BASIA LE MD Jul 30, 2016 14:12
[2016-07-30] MEDS ORDERED: PIP/TAZO PER PHARMACY MC PRN (14:15)
[2016-07-30] MEDS ORDERED: PIPERACILLIN/TAZOBACTAM 3.375 GM in IV NORMAL SALINE 50ML 50 ML IV ONE (14:15)
--- NOTE | 2016-07-30 14:21 | RAD ---
Portable chest, 07/30/2016: History: Shortness of breath, patient unresponsive Comparison is made to a study from 05/09/2016. The heart size and pulmonary vascularity are normal. There is calcific plaquing and tortuosity of the thoracic aorta. No pulmonary infiltrate is seen. There is no evidence of pleural fluid. The bony structures are demineralized. IMPRESSION: 1. Aortic atherosclerosis. 2. No acute cardiopulmonary abnormality is detected.
[2016-07-30 14:45] VITALS: BP 128/51
--- NOTE | 2016-07-30 15:47 | RAD ---
EXAM: Carotid Doppler sonogram. HISTORY: Cerebrovascular accident. TECHNIQUE: Roger scale and color Doppler sonographic evaluation of the neck with spectral waveform analysis was performed and static images are submitted for review. FINDINGS: RIGHT: The peak systolic velocity within the common carotid artery is 58 cm/sec. The peak systolic velocity within the internal carotid artery is 62 cm/sec and the end diastolic velocity within the internal carotid artery is 10 cm/sec. The ICA/CCA ratio is 1.1. Grayscale images demonstrate calcified plaquing at the bulb. LEFT: The peak systolic velocity within the common carotid artery is 78 cm/sec. The peak systolic velocity within the internal carotid artery is 60 cm/sec and the end diastolic velocity within the internal carotid artery is 15 cm/sec. The ICA/CCA ratio is 0.75. Grayscale images demonstrate no significant plaquing. There is antegrade flow within both vertebral arteries. IMPRESSION: 1. No evidence of hemodynamically significant stenosis. PQRS Compliance Statement - Stenosis calculations for CT, MR and conventional angiography are based upon measurement of the distal ICA diameter in accordance with the NASCET methodology. Stenosis calculations for carotid ultrasound studies are derived from validated velocity criteria which are known to correlate with the NASCET methodology.
--- NOTE | 2016-07-30 16:10 | CARD ---
APPROVED REPORT EXAM: Two-dimensional and M-mode echocardiogram with Doppler and color Doppler. Other Information Quality : Good INDICATION CVA/TIA 2D DIMENSIONS RVDd2.7 (2.9-3.5cm)Left Atrium(2D)4.1 (1.6-4.0cm) IVSd1.1 (0.7-1.1cm)Aortic Root(2D)2.8 (2.0-3.7cm) LVDd4.3 (3.9-5.9cm)LVOT Diameter2.0 (1.8-2.4cm) PWd1.0 (0.7-1.1cm)LVDs3.1 (2.5-4.0cm) FS (%) 28.7 %SV46.5 ml LVEF(%)55.5 (>50%) Aortic Valve AoV Peak Johnson.209.4cm/sAoV VTI30.2cm AO Peak GR.17.5mmHgLVOT VTI 17.68cm AO Mean GR.10mmHgAVA (VTI)1.80cm2 Mitral Valve MV E Ranzsghb650.4cm/sMV E Peak Gr.13mmHg MV DECEL [id number] A Tfumqeiy170.2cm/s MV E Mean Gr.4mmHgMV PEK47xq E/A Ratio1.4MVA (PHT)3.14cm2 TDI Lateral E' P. V6.05cm/sMedial E' P. V4.89cm/s E/Lateral E'29.5E/Medial E'36.5 Tricuspid Valve TR P. Deumjkhy227ue/sRAP [id number] TR Peak Gr.72mbBqRYOQ81ckPh Pulmonary Vein S1 Zurlqwrr46.5cm/sS2 Xycyuxum18.84cm/s D2 Otcznnwj69.8cm/sPVa [id number] LEFT VENTRICLE The left ventricle is normal size. There is normal left ventricular wall thickness. The left ventricu lar systolic function is normal and the ejection fraction is within normal range. The Ejection Fracti on is 55-60%. There is normal LV segmental wall motion. Transmitral Doppler flow pattern is Grade II- pseudonormal filling dynamics. RIGHT VENTRICLE The right ventricle is normal size. The right ventricular systolic function is normal. ATRIA The left atrium is mildly dilated. The right atrium size is normal. The interatrial septum is intact with no evidence for an atrial septal defect or patent foramen ovale as noted on 2-D or Doppler imagi ng. AORTIC VALVE The aortic valve is mildly thickened but opens well. Doppler and Color Flow revealed no significant a ortic regurgitation. There is no significant aortic valvular stenosis. MITRAL VALVE Mitral annular calcification is moderate. The mitral valve is calcified and displays decreased openin g. There is no evidence of mitral valve prolapse. There is mild mitral valve stenosis. Calculated delvin ral valve area is 1.6 cm2 with maximum pressure gradient of 13 mmHg and mean pressure gradient of 4 m mHg. Doppler and Color-flow revealed mild mitral regurgitation. TRICUSPID VALVE The tricuspid valve is normal in structure and function. Doppler and Color Flow revealed mild tricusp id regurgitation. The PA pressure was estimated at 46 mmHg. There is no tricuspid valve stenosis. PULMONIC VALVE The pulmonary valve is normal in structure and function. Doppler and Color Flow revealed mild pulmoni c valvular regurgitation. There is no pulmonic valvular stenosis. GREAT VESSELS The aortic root is normal in size. The ascending aorta is not well seen. The IVC is normal in size an d collapses >50% with inspiration. PERICARDIAL EFFUSION There is no evidence of significant pericardial effusion. Critical Notification Critical Value: No <Conclusion> The left ventricle is normal size. The left ventricular systolic function is normal and the ejection fraction is within normal range. The Ejection Fraction is 55-60%. There is no significant aortic valvular stenosis. Doppler and Color Flow revealed no significant aortic regurgitation. Mitral annular calcification is moderate. The mitral valve is calcified and displays decreased opening. There is mild mitral valve stenosis. Calculated mitral valve area is 1.6 cm2 with maximum pressure gradient of 13 mmHg and mean pressure g radient of 4 mmHg. Doppler and Color-flow revealed mild mitral regurgitation. Doppler and Color Flow revealed mild tricuspid regurgitation. The PA pressure was estimated at 46 mmHg.
--- NOTE | 2016-07-30 16:36 | PDOC2 ---
NEUROLOGY CONSULT Date of Admission Date of Admission DATE: 07/30/16 TIME: 16:26 Reason for Consult Reason for Consult: July 292016 IMPRESSION Metabolic encephalopathy. Confusion for 3 days before admission. Leukocytosis. 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 RECOMMENDATIONS/PLAN: Continue ASA daily. If not takes PO, rectal. Continue Statin HS. Brain MRI w/o contrast. She had Carotid A US 05/10/16 which was unremarkable. Echo Lab: see orders. Treat medical diseases. OT/PT. Improve personal hygiene. Discussed with her daughter at bedside on 07/29/16. HISTORY OF THE PRESENT ILLNESS: 89-y-old female patient with above medical diseases was to have mental status changes, confusion and lethergy for about 3 days to be brought to the ER of [facility]. She was admitted for further evaluation and Neurology was called for consultation due to MS changes. Per family, no acute motor deficits noted. PAST MEDICAL HISTORY: Please see above. PAST SURGERY HISTORY: Cholecystectomy Hysterectomy Aortic stent placement. ALLERGY: Unknown MEDICATIONS: Refer to [facility] FAMILY HISTORY: Non contributory. SOCIAL HISTORY: Lives with her daughter at home. Denies smoking, drinking, and illicit drug use. REVIEW OF SYSTEMS: Constitutional: No malnutrition, weight loss, cachexia. Head: No traumatic brain or head injury. Skin: No edema, or rash. Ear: No infection, tinnitus. Eyes: No vision loss or color blindness. Nose: No bleeding or purulent discharges. Hearing: Hearing decrease. Neck: No injury. Breast: No history of cancer, masses,or discharges. Cardiac: Aortic stent, HTN, HLD. Pulmonary: No COPD. GI: No GI ulcer, GI bleeding. Urinary/genital: Recurrent UTI. Endocrinologic: No cousin face, craniofacial dysmorphism, polydactyly, goiter. Skeletomuscular: No muscular atrophy, deformity. Neurological: see HP. Psychiatric: Denies drug use/abuse. Otherwise, not [id number] review of systems. PHYSICAL EXAMINATION: General appearance is in subacute distress. HEENT: Normocephalic and nontraumatic. Eyes, nose, ears, and throat are unremarkable. Neck is supple. No lymphadenopathy. No bruits are heard over the carotid artery. No crepitus. Cardiovascular: S1, S2, regular rate and rhythm. Pulmonary: Clear to auscultation bilaterally. Abdomen: Bowel sounds are positive. Extremities: No rash, lesions, or edema. No restriction of range of motion NEUROLOGICAL EXAMINATION: Lethargic. Not oriented to time, place and person. PERRL. EOMI not elicited due to not follow commands. CN: no acute focal findings. Muscle tone: within normal. Muscle strength: minimal movements noted in UE and LE. DTR: 1+ Plantar reflex: Neutral response bilaterally Gait: Unable to walk. Sensory exam: withdraws to stimuli. Not able to access acute cerebellar signs in this mentation. Not able to perform F-T-N test. Current Medications Current Medications Current Medications Sodium Chloride 500 ml @ 500 mls/hr 1X ONCE IV Last administered on 07/27/16 11:27; Start 07/27/16 at 11:15; Stop 07/27/16 at 12:14; Status DC Ceftriaxone Sodium 1 gm/ Sodium Chloride 50 ml @ 100 mls/hr Q24H IV Last administered on 07/29/16 13:00; Start 07/28/16 at 13:00; Stop 07/30/16 at 14:07; Status DC Ceftriaxone Sodium (Rocephin 1gm Ivpb For Omni) 50 ml @ 100 mls/hr 1X ONCE IV Last administered on 07/27/16 13:14; Start 07/27/16 at 12:45; Stop 07/27/16 at 13:14; Status DC Ondansetron HCl (Zofran) 4 mg PRN Q8HRS PRN IV NAUSEA/VOMITING; Start 07/27/16 at 13:00; Stop 07/27/16 at 14:48; Status DC Acetaminophen (Tylenol) 650 mg PRN Q4HRS PRN PO FEVER; Start 07/27/16 at 13:00; Stop 07/28/16 at 12:59; Status DC Ondansetron HCl 4 mg 4 mg PRN Q6HRS PRN IV NAUSEA/VOMITING; Start 07/27/16 at 14 :45 Amino Acids/ Glycerin/ Electrolytes (Procalamine) 1,000 ml @ 80 mls/hr [id number] IV Last administered on 07/28/16 04:33; Start 07/27/16 at 15:00; Stop 07/28/16 at 07:17; Status DC Amlodipine Besylate (Norvasc) 5 mg HS PO Last administered on 07/28/16 20:44; Start 07/27/16 at 21:00; Stop 07/29/16 at 13:30; Status DC Aspirin (Ecotrin) 81 mg HS PO Last administered on 07/29/16 22:42; Start at 21:00 Atorvastatin Calcium (Lipitor) 10 mg QHS PO Last administered on 07/29/16 22:31 ; Start 07/27/16 at 21:00 Donepezil HCl (Aricept) 10 mg DAILY PO Last administered on 07/29/16 12:51; Start 07/27/16 at 15:30 Lisinopril (Prinivil) 40 mg DAILY PO Last administered on 07/28/16 09:06; Start 07/27/16 at 15:30; Stop 07/30/16 at 14:07; Status DC Montelukast Sodium (Singulair) 10 mg HS PO Last administered on 07/29/16 22:31 ; Start 07/27/16 at 21:00 Vitamin B Complex (Rufnio B) 1 tab DAILY PO ; Start 07/28/16 at 09:00; Stop at 09:00; Status DC Calcium/Vitamin D (Oscal D 500mg/ 200uts) 2 tab DAILY PO ; Start 07/27/16 at 09: 00; Stop 07/27/16 at 15:45; Status DC Duloxetine HCl (Cymbalta) 30 mg QHS PO Last administered on 07/29/16 22:42; Start 07/27/16 at 21:00 Non-Formulary Medication 1 each BID92 PO ; Start 07/28/16 at 09:00; Status UNV Tramadol HCl (Ultram) 50 mg BID PO Last administered on 07/29/16 22:32; Start 07/27/16 at 21:00 Acetaminophen (Tylenol) 325 mg BID PO Last administered on 07/29/16 22:31; Start 07/27/16 at 21:00 Non-Formulary Medication 500 mg HS PO ; Start 07/27/16 at 21:00; Status UNV Heparin Sodium (Porcine) 5,000 unit Q8HRS SQ Last administered on 07/30/16 15: 31; Start 07/27/16 at 22:00 Calcium/Vitamin D (Oscal D 500mg/ 200uts) 2 tab NOON PO Last administered on 13:24; Start 07/27/16 at 16:00 Vitamin B Complex 1 tab 1 tab NOON PO Last administered on 07/29/16 13:24; Start 07/28/16 at 12:00 Amino Acids/ Electrolytes/ Dextrose (Clinimix E 4.25%-5% Solution) 1,000 ml @ 80 mls/hr [id number] IV Last administered on 07/30/16 06:32; Start 07/28/16 at 07: 30 Potassium Chloride 40 meq 40 meq 1X ONCE PO Last administered on 07/28/16 13: 02; Start 07/28/16 at 11:30; Stop 07/28/16 at 11:31; Status DC Potassium Phosphate 10 mmol/ Sodium Chloride 103.3333 ml @ 51.667 m... Q2H IV Last administered on 07/29/16 17:30; Start 07/29/16 at 09:00; Stop 07/29/16 at 12: 59; Status DC Sodium Phosphate/ Dextrose 256.6667 ml @ 64.167 m... 1X ONCE IV Last administered on 07/29/16 20:03; Start 07/29/16 at 09:00; Stop 07/29/16 at 12:59; Status DC Aspirin (Riana Aspirin) 325 mg 1X ONCE PO ; Start 07/30/16 at 10:00; Stop 07/30 at 10:01; Status DC Clopidogrel Bisulfate (Plavix) 75 mg DAILYWBKFT PO ; Start 07/30/16 at 11:00 Metoprolol Tartrate 12.5 mg 12.5 mg BID PO ; Start 07/30/16 at 13:30 Piperacillin Sod/ Tazobactam Sod/ Sodium Chloride (Zosyn/Iv Sodium Chloride 0.9 % 50ml) 50 ml @ 100 mls/hr 1X ONCE IV ; Start 07/30/16 at 14:15; Stop at 14:15; Status DC Piperacillin Sod/ Tazobactam Sod 1 each 1 each PRN DAILY PRN MC SEE COMMENTS; Start 07/30/16 at 14:15; Stop 07/30/16 at 14:15; Status DC Meropenem/Sodium Chloride (Merrem/Iv Sodium Chloride 0.9% 50ml) 50 ml @ 100 mls /hr Q8HRS IV ; Start 07/30/16 at 22:00 Active Scripts Active Reported Lo-Dose Aspirin EC (Aspirin) 81 Mg Tablet.dr 81 Mg PO DAILY [Tumeric] 500 Mg PO HS Cymbalta (Duloxetine Hcl) 60 Mg Capsule.dr 60 Mg PO HS Amlodipine Besylate 5 Mg Tablet 5 Mg PO HS Montelukast Sodium Tablet (Montelukast Sodium) 10 Mg Tablet 10 Mg PO HS Calcium 1,000 + D3 Caplet (Calcium Carbonate/Vitamin D3) 1 Each Tablet 1 Each PO NOON Vitamin B-Complex & C (B Complex With Vitamin C) 1 Each Tablet.er 1 Each PO NOON Lipitor (Atorvastatin Calcium) 10 Mg Tablet 10 Mg PO NOON Osteo Bi-Flex Tablet (Glucosamine/D3/Boswellia Sharon) 1 Each Tablet 1 Each PO BIDACBL Aricept (Donepezil Hcl) 10 Mg Tablet 10 Mg PO DAILY Tramadol-Acetaminophn 37.5-325 (Tramadol Hcl/Acetaminophen) 1 Each Tablet 1 Tab PO HS Tramadol-Acetaminophn 37.5-325 (Tramadol Hcl/Acetaminophen) 1 Each Tablet 2 Tab PO DAILYWBKFT Lisinopril 40 Mg Tablet 40 Mg PO DAILY Allergies Allergies: Coded Allergies: No Known Drug Allergies (Unverified , 05/10/16) Vitals VITALS Vital Signs Date Time Temp Pulse Resp B/P Pulse Ox O2 Delivery O2 Flow Rate FiO2 07/30/16 14:45 99.7 99 24 128/51 94 Room Air 99.7 Labs Labs Laboratory Tests Test 07/29/16 01:30 07/30/16 00:10 07/30/16 02:45 07/30/16 10:17 White Blood Count 15.9x10^3/uL (4.0-11.0) 12.5x10^3/uL (4.0-11.0) Red Blood Count 3.35x10^6/uL (3.50-5.40) 3.36x10^6/uL (3.50-5.40) Hemoglobin 9.3g/dL (12.0-15.5) 9.4g/dL (12.0-15.5) Hematocrit 27.8% (36.0-47.0) 28.7% (36.0-47.0) Mean Corpuscular Volume 83fL (79-100) 85fL (79-100) Mean Corpuscular Hemoglobin 28pg (25-35) 28pg (25-35) Mean Corpuscular Hemoglobin Concent 33g/dL (31-37) 33g/dL (31-37) Red Cell Distribution Width 15.3% (11.5-14.5) 15.7% (11.5-14.5) Platelet Count 267x10^3/uL (140-400) 216x10^3/uL (140-400) Neutrophils (%) (Auto) 86% (31-73) Lymphocytes (%) (Auto) 10% (24-48) Monocytes (%) (Auto) 4% (0-9) Eosinophils (%) (Auto) 0% (0-3) Basophils (%) (Auto) 0% (0-3) Neutrophils # (Auto) 13.6x10^3uL (1.8-7.7) Lymphocytes # (Auto) 1.6x10^3/uL (1.0-4.8) Monocytes # (Auto) 0.6x10^3/uL (0.0-1.1) Eosinophils # (Auto) 0.0x10^3/uL (0.0-0.7) Basophils # (Auto) 0.0x10^3/uL (0.0-0.2) Sodium Level 138mmol/L (136-145) 141mmol/L (136-145) Potassium Level 3.7mmol/L (3.5-5.1) 3.7mmol/L (3.5-5.1) Chloride Level 103mmol/L (98-107) 105mmol/L (98-107) Carbon Dioxide Level 28mmol/L (21-32) 28mmol/L (21-32) Anion Gap 7 (6-14) 8 (6-14) Blood Urea Nitrogen 44mg/dL (7-20) 37mg/dL (7-20) Creatinine 1.2mg/dL (0.6-1.0) 1.2mg/dL (0.6-1.0) Estimated GFR (Cockcroft-Gault) 42.3 42.3 Glucose Level 134mg/dL (70-99) 140mg/dL (70-99) Calcium Level 8.9mg/dL (8.5-10.1) 8.9mg/dL (8.5-10.1) Phosphorus Level 2.3mg/dL (2.6-4.7) 4.7mg/dL (2.6-4.7) Magnesium Level 2.0mg/dL (1.8-2.4) Urine Collection Type Unknown Urine Color Red Urine Clarity Turbid Urine pH 5.5 Urine Specific [place] 1.015 Urine Protein 30mg/dL (NEG-TRACE) Urine Glucose (UA) Negativemg/dL (NEG) Urine Ketones (Stick) Negativemg/dL (NEG) Urine Blood Large (NEG) Urine Nitrite Negative (NEG) Urine Bilirubin Negative (NEG) Urine Urobilinogen Dipstick 0.2mg/dL (0.2 mg/dL) Urine Leukocyte Esterase Large (NEG) Urine RBC Tntc/HPF (0-2) Urine WBC >40/HPF (0-4) Urine Squamous Epithelial Cells Mod/LPF Urine Bacteria 0/HPF (0-FEW) Urine Hyaline Casts Occasional/HPF Urine Mucus Mod/LPF Vitamin B12 Level 649pg/mL (247-911) Thyroid Stimulating Hormone (TSH) 1.859uIU/mL (0.358-3.74) Influenza Type A Antigen Negative (NEGATIVE) Influenza Type B Antigen Negative (NEGATIVE) Laboratory Tests Test 07/30/16 00:10 07/30/16 02:45 07/30/16 10:17 Urine Collection Type Unknown Urine Color Red Urine Clarity Turbid Urine pH 5.5 Urine Specific [place] 1.015 Urine Protein 30mg/dL (NEG-TRACE) Urine Glucose (UA) Negativemg/dL (NEG) Urine Ketones (Stick) Negativemg/dL (NEG) Urine Blood Large (NEG) Urine Nitrite Negative (NEG) Urine Bilirubin Negative (NEG) Urine Urobilinogen Dipstick 0.2mg/dL (0.2 mg/dL) Urine Leukocyte Esterase Large (NEG) Urine RBC Tntc/HPF (0-2) Urine WBC >40/HPF (0-4) Urine Squamous Epithelial Cells Mod/LPF Urine Bacteria 0/HPF (0-FEW) Urine Hyaline Casts Occasional/HPF Urine Mucus Mod/LPF White Blood Count 12.5x10^3/uL (4.0-11.0) Red Blood Count 3.36x10^6/uL (3.50-5.40) Hemoglobin 9.4g/dL (12.0-15.5) Hematocrit 28.7% (36.0-47.0) Mean Corpuscular Volume 85fL (79-100) Mean Corpuscular Hemoglobin 28pg (25-35) Mean Corpuscular Hemoglobin Concent 33g/dL (31-37) Red Cell Distribution Width 15.7% (11.5-14.5) Platelet Count 216x10^3/uL (140-400) Sodium Level 141mmol/L (136-145) Potassium Level 3.7mmol/L (3.5-5.1) Chloride Level 105mmol/L (98-107) Carbon Dioxide Level 28mmol/L (21-32) Anion Gap 8 (6-14) Blood Urea Nitrogen 37mg/dL (7-20) Creatinine 1.2mg/dL (0.6-1.0) Estimated GFR (Cockcroft-Gault) 42.3 Glucose Level 140mg/dL (70-99) Calcium Level 8.9mg/dL (8.5-10.1) Phosphorus Level 4.7mg/dL (2.6-4.7) Vitamin B12 Level 649pg/mL (247-911) Thyroid Stimulating Hormone (TSH) 1.859uIU/mL (0.358-3.74) Influenza Type A Antigen Negative (NEGATIVE) Influenza Type B Antigen Negative (NEGATIVE) JUSTYNA PONCE MD Jul 30, 2016 16:36
--- NOTE | 2016-07-30 16:42 | PDOC ---
PROGRESS NOTES Assessment Assessment Acute and subacute extensive multiple infarcts in bilateral hemispheres. Metabolic encephalopathy. Confusion for 3 days before admission. Leukocytosis. 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 Pulmonary A hypertension. Obesity. RECOMMENDATIONS/PLAN: Continue ASA 300 mg Rectal daily. Continue Statin HS. She had Carotid A US 05/10/16 which was unremarkable. Family declined feeding tube or PEG. Treat medical diseases. Her daughters wish comfort care. Please consult Palliative Care Team. Discussed with her daughters in great deal and showed them MRI images on . HISTORY OF THE PRESENT ILLNESS: 89-y-old female patient with above medical diseases was to have mental status changes, confusion and decreased response for about 3 days to be brought to the ER of [facility] on 07/27. She was admitted for further evaluation and Neurology was called for consultation on 07/29/16 due to persistent MS changes. Per family, no acute motor deficits noted. PAST MEDICAL HISTORY: Please see above. PAST SURGERY HISTORY: Cholecystectomy Hysterectomy Aortic stent placement. ALLERGY: Unknown MEDICATIONS: Refer to [facility] FAMILY HISTORY: Non contributory. SOCIAL HISTORY: Lives with her daughter at home. Denies smoking, drinking, and illicit drug use. REVIEW OF SYSTEMS: Constitutional: No malnutrition, weight loss, cachexia. Head: No traumatic brain or head injury. Skin: No edema, or rash. Ear: No infection, tinnitus. Eyes: No vision loss or color blindness. Nose: No bleeding or purulent discharges. Hearing: Hearing decrease. Neck: No injury. Breast: No history of cancer, masses,or discharges. Cardiac: Aortic stent, HTN, HLD. Pulmonary: No COPD. GI: No GI ulcer, GI bleeding. Urinary/genital: Recurrent UTI. Endocrinologic: No cousin face, craniofacial dysmorphism, polydactyly, goiter. Skeletomuscular: No muscular atrophy, deformity. Neurological: see HP. Psychiatric: Denies drug use/abuse. Otherwise, not [id number] review of systems. PHYSICAL EXAMINATION: General appearance is in subacute distress. HEENT: Normocephalic and nontraumatic. Eyes, nose, ears, and throat are unremarkable. Neck is supple. No lymphadenopathy. No bruits are heard over the carotid artery. No crepitus. Cardiovascular: S1, S2, regular rate and rhythm. Pulmonary: Clear to auscultation bilaterally. Abdomen: Bowel sounds are positive. Extremities: No rash, lesions, or edema. No restriction of range of motion NEUROLOGICAL EXAMINATION: Lethargic, difficult to arousal. Not oriented to time, place and person. PERRL. EOMI not elicited due to not follow commands. CN: no acute focal findings. Muscle tone: within normal. Muscle strength: minimal movements noted in UE and LE. DTR: 1+ Plantar reflex: Neutral response bilaterally Gait: Unable to walk. Sensory exam: withdraws to stimuli. Not able to access acute cerebellar signs in this mentation. Not able to perform F-T-N test. Objective Objective Vital Signs Date Time Temp Pulse Resp B/P Pulse Ox O2 Delivery O2 Flow Rate FiO2 07/30/16 14:45 99.7 99 24 128/51 94 Room Air 99.7 Intake and Output 07/30/16 07:00 Intake Total 446 ml Balance 446 ml Intake Oral 240 ml IV Total 206 ml # Voids 7 Vitals Signs Vitals VS - Last 72 Hours, by Label Date Time Temp Pulse Resp B/P Pulse Ox O2 Delivery O2 Flow Rate FiO2 07/30/16 14:45 99.7 99 24 128/51 94 Room Air 99.7 07/30/16 08:00 Room Air 07/30/16 07:00 100.9 97 24 122/59 90 Room Air 100.9 07/30/16 02:55 99.1 95 18 125/59 93 Room Air 99.1 07/29/16 23:32 Room Air 07/29/16 23:00 101.1 101 18 128/52 94 Room Air 101.1 07/29/16 22:32 Room Air 07/29/16 20:00 Room Air 07/29/16 19:00 99.9 91 18 121/56 95 Room Air 99.9 07/29/16 15:26 98.1 92 24 111/54 94 Room Air 98.1 07/29/16 13:52 20 94 07/29/16 12:52 20 96 Room Air 07/29/16 11:16 98.1 89 16 101/47 96 Room Air 98.1 07/29/16 09:00 88 101/47 07/29/16 07:58 98.3 95 18 106/38 95 Room Air 98.3 Laboratory Laboratory Laboratory Tests Test 07/30/16 00:10 07/30/16 02:45 07/30/16 10:17 Urine Collection Type Unknown Urine Color Red Urine Clarity Turbid Urine pH 5.5 Urine Specific [place] 1.015 Urine Protein 30mg/dL (NEG-TRACE) Urine Glucose (UA) Negativemg/dL (NEG) Urine Ketones (Stick) Negativemg/dL (NEG) Urine Blood Large (NEG) Urine Nitrite Negative (NEG) Urine Bilirubin Negative (NEG) Urine Urobilinogen Dipstick 0.2mg/dL (0.2 mg/dL) Urine Leukocyte Esterase Large (NEG) Urine RBC Tntc/HPF (0-2) Urine WBC >40/HPF (0-4) Urine Squamous Epithelial Cells Mod/LPF Urine Bacteria 0/HPF (0-FEW) Urine Hyaline Casts Occasional/HPF Urine Mucus Mod/LPF White Blood Count 12.5x10^3/uL (4.0-11.0) Red Blood Count 3.36x10^6/uL (3.50-5.40) Hemoglobin 9.4g/dL (12.0-15.5) Hematocrit 28.7% (36.0-47.0) Mean Corpuscular Volume 85fL (79-100) Mean Corpuscular Hemoglobin 28pg (25-35) Mean Corpuscular Hemoglobin Concent 33g/dL (31-37) Red Cell Distribution Width 15.7% (11.5-14.5) Platelet Count 216x10^3/uL (140-400) Sodium Level 141mmol/L (136-145) Potassium Level 3.7mmol/L (3.5-5.1) Chloride Level 105mmol/L (98-107) Carbon Dioxide Level 28mmol/L (21-32) Anion Gap 8 (6-14) Blood Urea Nitrogen 37mg/dL (7-20) Creatinine 1.2mg/dL (0.6-1.0) Estimated GFR (Cockcroft-Gault) 42.3 Glucose Level 140mg/dL (70-99) Calcium Level 8.9mg/dL (8.5-10.1) Phosphorus Level 4.7mg/dL (2.6-4.7) Vitamin B12 Level 649pg/mL (247-911) Thyroid Stimulating Hormone (TSH) 1.859uIU/mL (0.358-3.74) Influenza Type A Antigen Negative (NEGATIVE) Influenza Type B Antigen Negative (NEGATIVE) Microbiology 07/29/16 Blood Culture - Preliminary, Resulted NO GROWTH AFTER 1 DAY 07/27/16 Urine Culture - Preliminary, Resulted 07/27/16 Urine Culture Result 1 (TRAE) - Preliminary, Resulted 07/27/16 Urine Culture Result 2 (TRAE) - Preliminary, Resulted 07/27/16 Antimicrobic Susceptibility - Preliminary, Resulted Medication Medications Current Medications Aspirin (Riana Aspirin) 325 mg 1X ONCE PO ; Start 07/30/16 at 10:00; Stop 07/30 at 10:01; Status DC Clopidogrel Bisulfate (Plavix) 75 mg DAILYWBKFT PO ; Start 07/30/16 at 11:00 Meropenem/Sodium Chloride (Merrem/Iv Sodium Chloride 0.9% 50ml) 50 ml @ 100 mls /hr Q8HRS IV ; Start 07/30/16 at 22:00 Metoprolol Tartrate 12.5 mg 12.5 mg BID PO ; Start 07/30/16 at 13:30 Piperacillin Sod/ Tazobactam Sod 1 each 1 each PRN DAILY PRN MC SEE COMMENTS; Start 07/30/16 at 14:15; Stop 07/30/16 at 14:15; Status DC Piperacillin Sod/ Tazobactam Sod/ Sodium Chloride (Zosyn/Iv Sodium Chloride 0.9 % 50ml) 50 ml @ 100 mls/hr 1X ONCE IV ; Start 07/30/16 at 14:15; Stop at 14:15; Status DC Comment Review of Relevant I have reviewed the following items raffaele (where applicable) has been applied. JUSTYNA PONCE MD Jul 30, 2016 16:42
--- NOTE | 2016-07-30 17:45 | PDOC2 ---
PALLIATIVE CARE Palliative Care Note Palliative Care Consult requested by Anil Arenas Diagnosis; POA, UTI, HTN dementia, SAMUEL, CVA Spoke with daughter. Plan family meeting Tuesday at 1030 LEIGHA HAIRSTON Jul 30, 2016 17:45
[2016-07-30 19:00] VITALS: BP 121/50
[2016-07-30] MEDS: MONTELUKAST SODIUM 10 MG TABLET. PO SCH (21:00)
[2016-07-30] MEDS: ATORVASTATIN CALCIUM 10 MG TABLET. PO SCH (21:00)
[2016-07-30] MEDS: ASPIRIN ENTERIC COATED 81 MG TABLET.DR. PO SCH (21:00)
[2016-07-30] MEDS: DULOXETINE HCL 30 MG CAPSULE.DR. PO SCH (21:00)
[2016-07-30] MEDS: MEROPENEM 500 MG in IV NORMAL SALINE 50ML 50 ML IV SCH (22:11)
[2016-07-30 23:00] VITALS: BP 105/71
[2016-07-31] VITALS (7 sets, daily range): BP systolic 111–128; BP diastolic 50–71
[2016-07-31] MEDS: MEROPENEM 500 MG in IV NORMAL SALINE 50ML 50 ML IV SCH ×3 (05:14→21:07)
[2016-07-31] MEDS: HEPARIN PF for SUB-Q USE 5,000 UNIT/0.5 ML VIAL. SQ SCH ×3 (05:25→21:11)
[2016-07-31 05:35] LABS: BASO # 0.1 x10^3/uL (0.0-0.2); BASO % 0 % (0-3); EOS % 0 % (0-3); HEMATOCRIT 26.8 % (36.0-47.0); HEMOGLOBIN 8.7 g/dL (12.0-15.5); LYMPH # 1.4 x10^3/uL (1.0-4.8); LYMPH % 10 % (24-48); MEAN CORPUSCULAR HEMOGLOBIN 27 pg (25-35); MEAN CORPUSCULAR HGB CONC 32 g/dL (31-37); MEAN CORPUSCULAR VOLUME 83 fL (79-100); MONO % 6 % (0-9); NEUT % 84 % (31-73); PLATELET COUNT 239 x10^3/uL (140-400); RED BLOOD COUNT 3.22 x10^6/uL (3.50-5.40); RED CELL DISTRIBUTION WIDTH 15.9 % (11.5-14.5); WHITE BLOOD COUNT 14.2 x10^3/uL (4.0-11.0)
[2016-07-31 05:51] LABS: CALCIUM 8.4 mg/dL (8.5-10.1); CREATININE 1.2 mg/dL (0.6-1.0); GFR 42.3; POTASSIUM 3.8 mmol/L (3.5-5.1)
[2016-07-31] MEDS: CLOPIDOGREL BISULFATE 75 MG TABLET PO SCH (08:00)
[2016-07-31] MEDS: DONEPEZIL HCL 10 MG TABLET. PO SCH (09:00)
[2016-07-31] MEDS: TRAMADOL 50 MG TABLET. PO SCH ×2 (09:00→21:00)
[2016-07-31] MEDS: METOPROLOL TART IMMED RELEASE 25 MG TABLET PO SCH ×2 (09:00→21:00)
[2016-07-31] MEDS: ACETAMINOPHEN 325 MG TABLET. PO SCH (09:00)
--- NOTE | 2016-07-31 11:26 | EEG ---
DATE OF SERVICE: 07/30/2016 ATTENDING PHYSICIAN: Dr. Huber. EEG NUMBER [id number] performed on 07/30/2016. OBJECTIVE: The patient is an 89-year-old female with confusion. DESCRIPTION: This is a digital study. Electrodes are placed according to the international 10-20 system. Bipolar and referential montages are available. Activation procedures typically include hyperventilation and intermittent photic stimulation. INTERPRETATION: The background consists of 5-6 Hz, 50-100 microvolt activity, symmetrically distributed over parietooccipital regions and reactive to eye opening. Hyperventilation is performed ____. Intermittent photic stimulation is noncontributory. IMPRESSION: This electroencephalogram, with the patient awake only is abnormal because of a moderate, diffuse disturbance of cerebral activity as may be seen in any of a variety of toxic or metabolic encephalopathies. There is no focal, paroxysmal, or epileptiform activity. Thank you for letting us help with the patient's care AVILA JORDAN MD DR: WALE/zahira JOB#: [id number] / [id number]
[2016-07-31] MEDS: VITAMIN B COMPLEX TABLET. PO SCH (12:00)
[2016-07-31] MEDS: AA 4.25%/CALCIUM/LYTES/D5W 1,000 ML IV SCH ×2 (12:27→23:00)
--- NOTE | 2016-07-31 13:16 | PDOC ---
Infectious Disease Note ROS ROS Vital Sign Vital Signs Vital Signs Date Time Temp Pulse Resp B/P Pulse Ox O2 Delivery O2 Flow Rate FiO2 07/31/16 12:04 98.8 91 20 111/58 94 Room Air 98.8 Labs Lab Laboratory Tests Test 07/31/16 05:01 White Blood Count 14.2x10^3/uL (4.0-11.0) Red Blood Count 3.22x10^6/uL (3.50-5.40) Hemoglobin 8.7g/dL (12.0-15.5) Hematocrit 26.8% (36.0-47.0) Mean Corpuscular Volume 83fL (79-100) Mean Corpuscular Hemoglobin 27pg (25-35) Mean Corpuscular Hemoglobin Concent 32g/dL (31-37) Red Cell Distribution Width 15.9% (11.5-14.5) Platelet Count 239x10^3/uL (140-400) Neutrophils (%) (Auto) 84% (31-73) Lymphocytes (%) (Auto) 10% (24-48) Monocytes (%) (Auto) 6% (0-9) Eosinophils (%) (Auto) 0% (0-3) Basophils (%) (Auto) 0% (0-3) Neutrophils # (Auto) 11.9x10^3uL (1.8-7.7) Lymphocytes # (Auto) 1.4x10^3/uL (1.0-4.8) Monocytes # (Auto) 0.9x10^3/uL (0.0-1.1) Eosinophils # (Auto) 0.0x10^3/uL (0.0-0.7) Basophils # (Auto) 0.1x10^3/uL (0.0-0.2) Sodium Level 143mmol/L (136-145) Potassium Level 3.8mmol/L (3.5-5.1) Chloride Level 108mmol/L (98-107) Carbon Dioxide Level 25mmol/L (21-32) Anion Gap 10 (6-14) Blood Urea Nitrogen 40mg/dL (7-20) Creatinine 1.2mg/dL (0.6-1.0) Estimated GFR (Cockcroft-Gault) 42.3 Glucose Level 143mg/dL (70-99) Calcium Level 8.4mg/dL (8.5-10.1) Micro URINE CULTURE RES 1 Final Escherichia coli Greater than 100,000 colony forming units per mL URINE CULTURE RES 2 Final Enterococcus faecalis 50,000-100,000 colony forming units per mL ANTIMICROBIAL SUSCEPTIBILITY Final Comment S = Susceptible; I = Intermediate; R = Resistant P = Positive; N = Negative MICS are expressed in micrograms per mL Antibiotic RSLT#1 RSLT#2 RSLT#3 RSLT#4 Amoxicillin/Clavulanic Acid S Ampicillin R Cefepime S Ceftriaxone S Cefuroxime S Cephalothin I Ciprofloxacin R S Ertapenem S Gentamicin S Imipenem S Levofloxacin R S Nitrofurantoin S S Penicillin S Piperacillin R Tetracycline R R Tobramycin S Trimethoprim/Sulfa R Vancomycin S IMPRESSION 1. Multiple extensive small scattered areas of acute or subacute infarction throughout the cerebral and cerebellar hemispheres, described in detail above. There may be superimposed early laminar necrosis or microhemorrhage involving bilateral parietal lobe infarcts. 2. Extensive signal change throughout the cerebral white matter and georgie, likely due to chronic small vessel disease. 3. Scattered foci of suspected chronic microhemorrhage within the cerebral hemispheres. 4. Cerebral atrophy. There is asymmetric dilatation of the temporal horn of the right lateral ventricle likely due to right temporal lobe predominant volume loss. 5. Limited exam due to motion and utilization of a rapid imaging protocol. Objective Assessment Fever - ? from multiple infarcts vs UTI Leukocytosis E. coli & E. faecalis in urine ? UTI 07/27. UA + squamous cells. 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 The chart was reviewed. The case was discussed. Agree with the plan of care. SYLVIA JUAREZ APRN Jul 31, 2016 13:16 NORAH DEL VALLE MD Jul 31, 2016 14:57
--- NOTE | 2016-07-31 13:25 | PDOC ---
PROGRESS NOTES Assessment Problems Medical Problems: (1) Acute cystitis without hematuria Status: Acute (2) Altered mental status Status: Acute Acute and subacute extensive multiple infarcts in bilateral hemispheres. Metabolic encephalopathy. Dementia Plan Comfort care, as discussed with daughter Subjective None Objective Vital Signs Date Time Temp Pulse Resp B/P Pulse Ox O2 Delivery O2 Flow Rate FiO2 07/31/16 12:04 98.8 91 20 111/58 94 Room Air 98.8 PHYSICAL EXAM Unresponsive Review of Relevant I have reviewed the following items raffaele (where applicable) has been applied. Labs Laboratory Tests Test 07/30/16 00:10 07/30/16 02:45 07/30/16 10:17 07/31/16 05:01 Urine Collection Type Unknown Urine Color Red Urine Clarity Turbid Urine pH 5.5 Urine Specific Harrison 1.015 Urine Protein 30mg/dL (NEG-TRACE) Urine Glucose (UA) Negativemg/dL (NEG) Urine Ketones (Stick) Negativemg/dL (NEG) Urine Blood Large (NEG) Urine Nitrite Negative (NEG) Urine Bilirubin Negative (NEG) Urine Urobilinogen Dipstick 0.2mg/dL (0.2 mg/dL) Urine Leukocyte Esterase Large (NEG) Urine RBC Tntc/HPF (0-2) Urine WBC >40/HPF (0-4) Urine Squamous Epithelial Cells Mod/LPF Urine Bacteria 0/HPF (0-FEW) Urine Hyaline Casts Occasional/HPF Urine Mucus Mod/LPF White Blood Count 12.5x10^3/uL (4.0-11.0) 14.2x10^3/uL (4.0-11.0) Red Blood Count 3.36x10^6/uL (3.50-5.40) 3.22x10^6/uL (3.50-5.40) Hemoglobin 9.4g/dL (12.0-15.5) 8.7g/dL (12.0-15.5) Hematocrit 28.7% (36.0-47.0) 26.8% (36.0-47.0) Mean Corpuscular Volume 85fL (79-100) 83fL (79-100) Mean Corpuscular Hemoglobin 28pg (25-35) 27pg (25-35) Mean Corpuscular Hemoglobin Concent 33g/dL (31-37) 32g/dL (31-37) Red Cell Distribution Width 15.7% (11.5-14.5) 15.9% (11.5-14.5) Platelet Count 216x10^3/uL (140-400) 239x10^3/uL (140-400) Sodium Level 141mmol/L (136-145) 143mmol/L (136-145) Potassium Level 3.7mmol/L (3.5-5.1) 3.8mmol/L (3.5-5.1) Chloride Level 105mmol/L (98-107) 108mmol/L (98-107) Carbon Dioxide Level 28mmol/L (21-32) 25mmol/L (21-32) Anion Gap 8 (6-14) 10 (6-14) Blood Urea Nitrogen 37mg/dL (7-20) 40mg/dL (7-20) Creatinine 1.2mg/dL (0.6-1.0) 1.2mg/dL (0.6-1.0) Estimated GFR (Cockcroft-Gault) 42.3 42.3 Glucose Level 140mg/dL (70-99) 143mg/dL (70-99) Calcium Level 8.9mg/dL (8.5-10.1) 8.4mg/dL (8.5-10.1) Phosphorus Level 4.7mg/dL (2.6-4.7) Vitamin B12 Level 649pg/mL (247-911) 25-Hydroxy Vitamin D Total 39.7ng/mL (30.0-100.0) Thyroid Stimulating Hormone (TSH) 1.859uIU/mL (0.358-3.74) Influenza Type A Antigen Negative (NEGATIVE) Influenza Type B Antigen Negative (NEGATIVE) Neutrophils (%) (Auto) 84% (31-73) Lymphocytes (%) (Auto) 10% (24-48) Monocytes (%) (Auto) 6% (0-9) Eosinophils (%) (Auto) 0% (0-3) Basophils (%) (Auto) 0% (0-3) Neutrophils # (Auto) 11.9x10^3uL (1.8-7.7) Lymphocytes # (Auto) 1.4x10^3/uL (1.0-4.8) Monocytes # (Auto) 0.9x10^3/uL (0.0-1.1) Eosinophils # (Auto) 0.0x10^3/uL (0.0-0.7) Basophils # (Auto) 0.1x10^3/uL (0.0-0.2) Laboratory Tests Test 07/31/16 05:01 White Blood Count 14.2x10^3/uL (4.0-11.0) Red Blood Count 3.22x10^6/uL (3.50-5.40) Hemoglobin 8.7g/dL (12.0-15.5) Hematocrit 26.8% (36.0-47.0) Mean Corpuscular Volume 83fL (79-100) Mean Corpuscular Hemoglobin 27pg (25-35) Mean Corpuscular Hemoglobin Concent 32g/dL (31-37) Red Cell Distribution Width 15.9% (11.5-14.5) Platelet Count 239x10^3/uL (140-400) Neutrophils (%) (Auto) 84% (31-73) Lymphocytes (%) (Auto) 10% (24-48) Monocytes (%) (Auto) 6% (0-9) Eosinophils (%) (Auto) 0% (0-3) Basophils (%) (Auto) 0% (0-3) Neutrophils # (Auto) 11.9x10^3uL (1.8-7.7) Lymphocytes # (Auto) 1.4x10^3/uL (1.0-4.8) Monocytes # (Auto) 0.9x10^3/uL (0.0-1.1) Eosinophils # (Auto) 0.0x10^3/uL (0.0-0.7) Basophils # (Auto) 0.1x10^3/uL (0.0-0.2) Sodium Level 143mmol/L (136-145) Potassium Level 3.8mmol/L (3.5-5.1) Chloride Level 108mmol/L (98-107) Carbon Dioxide Level 25mmol/L (21-32) Anion Gap 10 (6-14) Blood Urea Nitrogen 40mg/dL (7-20) Creatinine 1.2mg/dL (0.6-1.0) Estimated GFR (Cockcroft-Gault) 42.3 Glucose Level 143mg/dL (70-99) Calcium Level 8.4mg/dL (8.5-10.1) Microbiology 07/29/16 Blood Culture - Preliminary, Resulted NO GROWTH AFTER 1 DAY 07/27/16 Urine Culture - Final, Complete 07/27/16 Urine Culture Result 1 (TRAE) - Final, Complete 07/27/16 Urine Culture Result 2 (TRAE) - Final, Complete 07/27/16 Antimicrobic Susceptibility - Final, Complete Medications Current Medications Sodium Chloride 500 ml @ 500 mls/hr 1X ONCE IV Last administered on 07/27/16 11:27; Start 07/27/16 at 11:15; Stop 07/27/16 at 12:14; Status DC Ceftriaxone Sodium 1 gm/ Sodium Chloride 50 ml @ 100 mls/hr Q24H IV Last administered on 07/29/16 13:00; Start 07/28/16 at 13:00; Stop 07/30/16 at 14:07; Status DC Ceftriaxone Sodium (Rocephin 1gm Ivpb For Omni) 50 ml @ 100 mls/hr 1X ONCE IV Last administered on 07/27/16 13:14; Start 07/27/16 at 12:45; Stop 07/27/16 at 13:14; Status DC Ondansetron HCl (Zofran) 4 mg PRN Q8HRS PRN IV NAUSEA/VOMITING; Start 07/27/16 at 13:00; Stop 07/27/16 at 14:48; Status DC Acetaminophen (Tylenol) 650 mg PRN Q4HRS PRN PO FEVER; Start 07/27/16 at 13:00; Stop 07/28/16 at 12:59; Status DC Ondansetron HCl 4 mg 4 mg PRN Q6HRS PRN IV NAUSEA/VOMITING; Start 07/27/16 at 14 :45; Status Cancel Amino Acids/ Glycerin/ Electrolytes (Procalamine) 1,000 ml @ 80 mls/hr [id number] IV Last administered on 07/28/16 04:33; Start 07/27/16 at 15:00; Stop 07/28/16 at 07:17; Status DC Amlodipine Besylate (Norvasc) 5 mg HS PO Last administered on 07/28/16 20:44; Start 07/27/16 at 21:00; Stop 07/29/16 at 13:30; Status DC Aspirin (Ecotrin) 81 mg HS PO Last administered on 07/29/16 22:42; Start at 21:00 Atorvastatin Calcium (Lipitor) 10 mg QHS PO Last administered on 07/29/16 22:31 ; Start 07/27/16 at 21:00 Donepezil HCl (Aricept) 10 mg DAILY PO Last administered on 07/29/16 12:51; Start 07/27/16 at 15:30 Lisinopril (Prinivil) 40 mg DAILY PO Last administered on 07/28/16 09:06; Start 07/27/16 at 15:30; Stop 07/30/16 at 14:07; Status DC Montelukast Sodium (Singulair) 10 mg HS PO Last administered on 07/29/16 22:31 ; Start 07/27/16 at 21:00 Vitamin B Complex (Rufino B) 1 tab DAILY PO ; Start 07/28/16 at 09:00; Stop at 09:00; Status DC Calcium/Vitamin D (Oscal D 500mg/ 200uts) 2 tab DAILY PO ; Start 07/27/16 at 09: 00; Stop 07/27/16 at 15:45; Status DC Duloxetine HCl (Cymbalta) 30 mg QHS PO Last administered on 07/29/16 22:42; Start 07/27/16 at 21:00 Non-Formulary Medication 1 each BID92 PO ; Start 07/28/16 at 09:00; Status UNV Tramadol HCl (Ultram) 50 mg BID PO Last administered on 07/29/16 22:32; Start 07/27/16 at 21:00 Acetaminophen (Tylenol) 325 mg BID PO Last administered on 07/29/16 22:31; Start 07/27/16 at 21:00; Stop 07/31/16 at 10:22; Status DC Non-Formulary Medication 500 mg HS PO ; Start 07/27/16 at 21:00; Status UNV Heparin Sodium (Porcine) 5,000 unit Q8HRS SQ Last administered on 07/31/16 05: 25; Start 07/27/16 at 22:00 Calcium/Vitamin D (Oscal D 500mg/ 200uts) 2 tab NOON PO Last administered on 13:24; Start 07/27/16 at 16:00; Stop 07/31/16 at 10:22; Status DC Vitamin B Complex 1 tab 1 tab NOON PO Last administered on 07/29/16 13:24; Start 07/28/16 at 12:00 Amino Acids/ Electrolytes/ Dextrose (Clinimix E 4.25%-5% Solution) 1,000 ml @ 80 mls/hr [id number] IV Last administered on 07/31/16 12:27; Start 07/28/16 at 07: 30 Potassium Chloride 40 meq 40 meq 1X ONCE PO Last administered on 07/28/16 13: 02; Start 07/28/16 at 11:30; Stop 07/28/16 at 11:31; Status DC Potassium Phosphate 10 mmol/ Sodium Chloride 103.3333 ml @ 51.667 m... Q2H IV Last administered on 07/29/16 17:30; Start 07/29/16 at 09:00; Stop 07/29/16 at 12: 59; Status DC Sodium Phosphate/ Dextrose 256.6667 ml @ 64.167 m... 1X ONCE IV Last administered on 07/29/16 20:03; Start 07/29/16 at 09:00; Stop 07/29/16 at 12:59; Status DC Aspirin (Riana Aspirin) 325 mg 1X ONCE PO ; Start 07/30/16 at 10:00; Stop 07/30 at 10:01; Status DC Clopidogrel Bisulfate (Plavix) 75 mg DAILYWBKFT PO ; Start 07/30/16 at 11:00 Metoprolol Tartrate 12.5 mg 12.5 mg BID PO ; Start 07/30/16 at 13:30 Piperacillin Sod/ Tazobactam Sod/ Sodium Chloride (Zosyn/Iv Sodium Chloride 0.9 % 50ml) 50 ml @ 100 mls/hr 1X ONCE IV ; Start 07/30/16 at 14:15; Stop at 14:15; Status DC Piperacillin Sod/ Tazobactam Sod 1 each 1 each PRN DAILY PRN MC SEE COMMENTS; Start 07/30/16 at 14:15; Stop 07/30/16 at 14:15; Status DC Meropenem/Sodium Chloride (Merrem/Iv Sodium Chloride 0.9% 50ml) 50 ml @ 100 mls /hr Q8HRS IV Last administered on 07/31/16t 05:14; Start 07/30/16 at 22:00 Acetaminophen (Tylenol) 650 mg PRN Q6HRS PRN [place] MILD PAIN / TEMP; Start at 10:30 Active Scripts Active Reported Lo-Dose Aspirin EC (Aspirin) 81 Mg Tablet.dr 81 Mg PO DAILY [Tumeric] 500 Mg PO HS Cymbalta (Duloxetine Hcl) 60 Mg Capsule.dr 60 Mg PO HS Amlodipine Besylate 5 Mg Tablet 5 Mg PO HS Montelukast Sodium Tablet (Montelukast Sodium) 10 Mg Tablet 10 Mg PO HS Calcium 1,000 + D3 Caplet (Calcium Carbonate/Vitamin D3) 1 Each Tablet 1 Each PO NOON Vitamin B-Complex & C (B Complex With Vitamin C) 1 Each Tablet.er 1 Each PO NOON Lipitor (Atorvastatin Calcium) 10 Mg Tablet 10 Mg PO NOON Osteo Bi-Flex Tablet (Glucosamine/D3/Boswellia Sharon) 1 Each Tablet 1 Each PO BIDACBL Aricept (Donepezil Hcl) 10 Mg Tablet 10 Mg PO DAILY Tramadol-Acetaminophn 37.5-325 (Tramadol Hcl/Acetaminophen) 1 Each Tablet 1 Tab PO HS Tramadol-Acetaminophn 37.5-325 (Tramadol Hcl/Acetaminophen) 1 Each Tablet 2 Tab PO DAILYWBKFT Lisinopril 40 Mg Tablet 40 Mg PO DAILY Vitals/I & O Vital Sign - Last 24 Hours 07/30/16 07/30/16 07/30/16 07/30/16 14:45 19:00 20:00 21:00 Temp 99.7 99.2 99.7 99.2 Pulse 99 98 98 Resp 24 28 B/P 128/51 121/50 121/50 Pulse Ox 94 93 O2 Delivery Room Air Room Air Room Air 07/30/16 07/31/16 07/31/16 07/31/16 23:00 03:00 07:00 08:00 Temp 100.9 98.1 97.6 100.9 98.1 97.6 Pulse 96 78 94 Resp 32 28 27 B/P 105/71 115/71 123/50 Pulse Ox 93 94 97 O2 Delivery Room Air Room Air Room Air Room Air 07/31/16 07/31/16 11:00 12:04 Temp 98.8 98.8 98.8 98.8 Pulse 20 91 Resp 20 20 B/P 111/58 111/58 Pulse Ox 94 94 O2 Delivery Room Air Room Air Images Brain MRI: 1. Multiple extensive small scattered areas of acute or subacute infarction throughout the cerebral and cerebellar hemispheres, described in detail above. There may be superimposed early laminar necrosis or microhemorrhage involving bilateral parietal lobe infarcts. 2. Extensive signal change throughout the cerebral white matter and georgie, likely due to chronic small vessel disease. 3. Scattered foci of suspected chronic microhemorrhage within the cerebral hemispheres. 4. Cerebral atrophy. There is asymmetric dilatation of the temporal horn of the right lateral ventricle likely due to right temporal lobe predominant volume loss. 5. Limited exam due to motion and utilization of a rapid imaging protocol. Carotid Dopplers negative EEG: Mild encephalopathy, no epileptic activity AVILA JORDAN MD Jul 31, 2016 13:25
--- NOTE | 2016-07-31 14:11 | PDOC ---
PROGRESS NOTES Chief Complaint Chief Complaint 1. SIRS POA, no sepsis 2. UTI in an elderly 3. 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 HTN, controlled 6. Advanced dementia 7. SAMUEL, vasomotor 8. DNR 9. hypokalemia 10. hypophosphotemia 11. 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, plz possible asp PNA PLAN: dcRocephin, add meropenum, id consulted Procalamine, npo, swallow eval when wake up BMP samantha AM Nutrition consult DVT prophy with heparin DNR REPLETE k replete Anuja Carotid us neg, echo pending PAT consult, likely comfort care add ASA supp talked to DPOA, WHo is a freind, saying family doesnot want PEG repeated ucx, bcx History of Present Illness History of Present Illness very weak, hard to walk with PT today cr better , K 3.2 low anuja WBC better, + ucx fever since 07/29, weaker, got ucx ,bcx unresponsive since 07/30 + multiple stroke on MRI wbc higher Vitals Vitals Vital Signs Date Time Temp Pulse Resp B/P Pulse Ox O2 Delivery O2 Flow Rate FiO2 07/31/16 12:04 98.8 91 20 111/58 94 Room Air 98.8 Physical Exam Physical Exam AAOX1 General: No acute distress Heart: Regular rate, Normal S1, Normal S2, Other (2/6 systolic murmur ) Lungs: Clear Abdomen: Soft Extremities: No clubbing, No cyanosis, No edema, Normal pulses, No tenderness/ swelling Skin: No significant lesion, Other (trace LE edema ) Labs LABS Laboratory Tests Test 07/31/16 05:01 White Blood Count 14.2x10^3/uL (4.0-11.0) Red Blood Count 3.22x10^6/uL (3.50-5.40) Hemoglobin 8.7g/dL (12.0-15.5) Hematocrit 26.8% (36.0-47.0) Mean Corpuscular Volume 83fL (79-100) Mean Corpuscular Hemoglobin 27pg (25-35) Mean Corpuscular Hemoglobin Concent 32g/dL (31-37) Red Cell Distribution Width 15.9% (11.5-14.5) Platelet Count 239x10^3/uL (140-400) Neutrophils (%) (Auto) 84% (31-73) Lymphocytes (%) (Auto) 10% (24-48) Monocytes (%) (Auto) 6% (0-9) Eosinophils (%) (Auto) 0% (0-3) Basophils (%) (Auto) 0% (0-3) Neutrophils # (Auto) 11.9x10^3uL (1.8-7.7) Lymphocytes # (Auto) 1.4x10^3/uL (1.0-4.8) Monocytes # (Auto) 0.9x10^3/uL (0.0-1.1) Eosinophils # (Auto) 0.0x10^3/uL (0.0-0.7) Basophils # (Auto) 0.1x10^3/uL (0.0-0.2) Sodium Level 143mmol/L (136-145) Potassium Level 3.8mmol/L (3.5-5.1) Chloride Level 108mmol/L (98-107) Carbon Dioxide Level 25mmol/L (21-32) Anion Gap 10 (6-14) Blood Urea Nitrogen 40mg/dL (7-20) Creatinine 1.2mg/dL (0.6-1.0) Estimated GFR (Cockcroft-Gault) 42.3 Glucose Level 143mg/dL (70-99) Calcium Level 8.4mg/dL (8.5-10.1) Review of Systems Review of Systems n , chills, sob or chest pain Assessment and Plan Assessmemt and Plan Problems Medical Problems: (1) Acute cystitis without hematuria Status: Acute (2) Altered mental status Status: Acute Problems: Comment Review of Relevant I have reviewed the following items raffaele (where applicable) has been applied. Labs Laboratory Tests Test 07/30/16 00:10 07/30/16 02:45 07/30/16 10:17 07/31/16 05:01 Urine Collection Type Unknown Urine Color Red Urine Clarity Turbid Urine pH 5.5 Urine Specific [place] 1.015 Urine Protein 30mg/dL (NEG-TRACE) Urine Glucose (UA) Negativemg/dL (NEG) Urine Ketones (Stick) Negativemg/dL (NEG) Urine Blood Large (NEG) Urine Nitrite Negative (NEG) Urine Bilirubin Negative (NEG) Urine Urobilinogen Dipstick 0.2mg/dL (0.2 mg/dL) Urine Leukocyte Esterase Large (NEG) Urine RBC Tntc/HPF (0-2) Urine WBC >40/HPF (0-4) Urine Squamous Epithelial Cells Mod/LPF Urine Bacteria 0/HPF (0-FEW) Urine Hyaline Casts Occasional/HPF Urine Mucus Mod/LPF White Blood Count 12.5x10^3/uL (4.0-11.0) 14.2x10^3/uL (4.0-11.0) Red Blood Count 3.36x10^6/uL (3.50-5.40) 3.22x10^6/uL (3.50-5.40) Hemoglobin 9.4g/dL (12.0-15.5) 8.7g/dL (12.0-15.5) Hematocrit 28.7% (36.0-47.0) 26.8% (36.0-47.0) Mean Corpuscular Volume 85fL (79-100) 83fL (79-100) Mean Corpuscular Hemoglobin 28pg (25-35) 27pg (25-35) Mean Corpuscular Hemoglobin Concent 33g/dL (31-37) 32g/dL (31-37) Red Cell Distribution Width 15.7% (11.5-14.5) 15.9% (11.5-14.5) Platelet Count 216x10^3/uL (140-400) 239x10^3/uL (140-400) Sodium Level 141mmol/L (136-145) 143mmol/L (136-145) Potassium Level 3.7mmol/L (3.5-5.1) 3.8mmol/L (3.5-5.1) Chloride Level 105mmol/L (98-107) 108mmol/L (98-107) Carbon Dioxide Level 28mmol/L (21-32) 25mmol/L (21-32) Anion Gap 8 (6-14) 10 (6-14) Blood Urea Nitrogen 37mg/dL (7-20) 40mg/dL (7-20) Creatinine 1.2mg/dL (0.6-1.0) 1.2mg/dL (0.6-1.0) Estimated GFR (Cockcroft-Gault) 42.3 42.3 Glucose Level 140mg/dL (70-99) 143mg/dL (70-99) Calcium Level 8.9mg/dL (8.5-10.1) 8.4mg/dL (8.5-10.1) Phosphorus Level 4.7mg/dL (2.6-4.7) Vitamin B12 Level 649pg/mL (247-911) 25-Hydroxy Vitamin D Total 39.7ng/mL (30.0-100.0) Thyroid Stimulating Hormone (TSH) 1.859uIU/mL (0.358-3.74) Influenza Type A Antigen Negative (NEGATIVE) Influenza Type B Antigen Negative (NEGATIVE) Neutrophils (%) (Auto) 84% (31-73) Lymphocytes (%) (Auto) 10% (24-48) Monocytes (%) (Auto) 6% (0-9) Eosinophils (%) (Auto) 0% (0-3) Basophils (%) (Auto) 0% (0-3) Neutrophils # (Auto) 11.9x10^3uL (1.8-7.7) Lymphocytes # (Auto) 1.4x10^3/uL (1.0-4.8) Monocytes # (Auto) 0.9x10^3/uL (0.0-1.1) Eosinophils # (Auto) 0.0x10^3/uL (0.0-0.7) Basophils # (Auto) 0.1x10^3/uL (0.0-0.2) Laboratory Tests Test 07/31/16 05:01 White Blood Count 14.2x10^3/uL (4.0-11.0) Red Blood Count 3.22x10^6/uL (3.50-5.40) Hemoglobin 8.7g/dL (12.0-15.5) Hematocrit 26.8% (36.0-47.0) Mean Corpuscular Volume 83fL (79-100) Mean Corpuscular Hemoglobin 27pg (25-35) Mean Corpuscular Hemoglobin Concent 32g/dL (31-37) Red Cell Distribution Width 15.9% (11.5-14.5) Platelet Count 239x10^3/uL (140-400) Neutrophils (%) (Auto) 84% (31-73) Lymphocytes (%) (Auto) 10% (24-48) Monocytes (%) (Auto) 6% (0-9) Eosinophils (%) (Auto) 0% (0-3) Basophils (%) (Auto) 0% (0-3) Neutrophils # (Auto) 11.9x10^3uL (1.8-7.7) Lymphocytes # (Auto) 1.4x10^3/uL (1.0-4.8) Monocytes # (Auto) 0.9x10^3/uL (0.0-1.1) Eosinophils # (Auto) 0.0x10^3/uL (0.0-0.7) Basophils # (Auto) 0.1x10^3/uL (0.0-0.2) Sodium Level 143mmol/L (136-145) Potassium Level 3.8mmol/L (3.5-5.1) Chloride Level 108mmol/L (98-107) Carbon Dioxide Level 25mmol/L (21-32) Anion Gap 10 (6-14) Blood Urea Nitrogen 40mg/dL (7-20) Creatinine 1.2mg/dL (0.6-1.0) Estimated GFR (Cockcroft-Gault) 42.3 Glucose Level 143mg/dL (70-99) Calcium Level 8.4mg/dL (8.5-10.1) Microbiology 07/29/16 Blood Culture - Preliminary, Resulted NO GROWTH AFTER 1 DAY 07/27/16 Urine Culture - Final, Complete 07/27/16 Urine Culture Result 1 (TRAE) - Final, Complete 07/27/16 Urine Culture Result 2 (TRAE) - Final, Complete 07/27/16 Antimicrobic Susceptibility - Final, Complete Medications Current Medications Sodium Chloride 500 ml @ 500 mls/hr 1X ONCE IV Last administered on 07/27/16 11:27; Start 07/27/16 at 11:15; Stop 07/27/16 at 12:14; Status DC Ceftriaxone Sodium 1 gm/ Sodium Chloride 50 ml @ 100 mls/hr Q24H IV Last administered on 07/29/16 13:00; Start 07/28/16 at 13:00; Stop 07/30/16 at 14:07; Status DC Ceftriaxone Sodium (Rocephin 1gm Ivpb For Omni) 50 ml @ 100 mls/hr 1X ONCE IV Last administered on 07/27/16 13:14; Start 07/27/16 at 12:45; Stop 07/27/16 at 13:14; Status DC Ondansetron HCl (Zofran) 4 mg PRN Q8HRS PRN IV NAUSEA/VOMITING; Start 07/27/16 at 13:00; Stop 07/27/16 at 14:48; Status DC Acetaminophen (Tylenol) 650 mg PRN Q4HRS PRN PO FEVER; Start 07/27/16 at 13:00; Stop 07/28/16 at 12:59; Status DC Ondansetron HCl 4 mg 4 mg PRN Q6HRS PRN IV NAUSEA/VOMITING; Start 07/27/16 at 14 :45; Status Cancel Amino Acids/ Glycerin/ Electrolytes (Procalamine) 1,000 ml @ 80 mls/hr [id number] IV Last administered on 07/28/16 04:33; Start 07/27/16 at 15:00; Stop 07/28/16 at 07:17; Status DC Amlodipine Besylate (Norvasc) 5 mg HS PO Last administered on 07/28/16 20:44; Start 07/27/16 at 21:00; Stop 07/29/16 at 13:30; Status DC Aspirin (Ecotrin) 81 mg HS PO Last administered on 07/29/16 22:42; Start at 21:00 Atorvastatin Calcium (Lipitor) 10 mg QHS PO Last administered on 07/29/16 22:31 ; Start 07/27/16 at 21:00 Donepezil HCl (Aricept) 10 mg DAILY PO Last administered on 07/29/16 12:51; Start 07/27/16 at 15:30 Lisinopril (Prinivil) 40 mg DAILY PO Last administered on 07/28/16 09:06; Start 07/27/16 at 15:30; Stop 07/30/16 at 14:07; Status DC Montelukast Sodium (Singulair) 10 mg HS PO Last administered on 07/29/16 22:31 ; Start 07/27/16 at 21:00 Vitamin B Complex (Rufino B) 1 tab DAILY PO ; Start 07/28/16 at 09:00; Stop at 09:00; Status DC Calcium/Vitamin D (Oscal D 500mg/ 200uts) 2 tab DAILY PO ; Start 07/27/16 at 09: 00; Stop 07/27/16 at 15:45; Status DC Duloxetine HCl (Cymbalta) 30 mg QHS PO Last administered on 07/29/16 22:42; Start 07/27/16 at 21:00 Non-Formulary Medication 1 each BID92 PO ; Start 07/28/16 at 09:00; Status UNV Tramadol HCl (Ultram) 50 mg BID PO Last administered on 07/29/16 22:32; Start 07/27/16 at 21:00 Acetaminophen (Tylenol) 325 mg BID PO Last administered on 07/29/16 22:31; Start 07/27/16 at 21:00; Stop 07/31/16 at 10:22; Status DC Non-Formulary Medication 500 mg HS PO ; Start 07/27/16 at 21:00; Status UNV Heparin Sodium (Porcine) 5,000 unit Q8HRS SQ Last administered on 07/31/16 13: 51; Start 07/27/16 at 22:00 Calcium/Vitamin D (Oscal D 500mg/ 200uts) 2 tab NOON PO Last administered on 13:24; Start 07/27/16 at 16:00; Stop 07/31/16 at 10:22; Status DC Vitamin B Complex 1 tab 1 tab NOON PO Last administered on 07/29/16 13:24; Start 07/28/16 at 12:00 Amino Acids/ Electrolytes/ Dextrose (Clinimix E 4.25%-5% Solution) 1,000 ml @ 80 mls/hr [id number] IV Last administered on 07/31/16 12:27; Start 07/28/16 at 07: 30 Potassium Chloride 40 meq 40 meq 1X ONCE PO Last administered on 07/28/16 13: 02; Start 07/28/16 at 11:30; Stop 07/28/16 at 11:31; Status DC Potassium Phosphate 10 mmol/ Sodium Chloride 103.3333 ml @ 51.667 m... Q2H IV Last administered on 07/29/16 17:30; Start 07/29/16 at 09:00; Stop 07/29/16 at 12: 59; Status DC Sodium Phosphate/ Dextrose 256.6667 ml @ 64.167 m... 1X ONCE IV Last administered on 07/29/16 20:03; Start 07/29/16 at 09:00; Stop 07/29/16 at 12:59; Status DC Aspirin (Riana Aspirin) 325 mg 1X ONCE PO ; Start 07/30/16 at 10:00; Stop 07/30 at 10:01; Status DC Clopidogrel Bisulfate (Plavix) 75 mg DAILYWBKFT PO ; Start 07/30/16 at 11:00 Metoprolol Tartrate 12.5 mg 12.5 mg BID PO ; Start 07/30/16 at 13:30 Piperacillin Sod/ Tazobactam Sod/ Sodium Chloride (Zosyn/Iv Sodium Chloride 0.9 % 50ml) 50 ml @ 100 mls/hr 1X ONCE IV ; Start 07/30/16 at 14:15; Stop at 14:15; Status DC Piperacillin Sod/ Tazobactam Sod 1 each 1 each PRN DAILY PRN MC SEE COMMENTS; Start 07/30/16 at 14:15; Stop 07/30/16 at 14:15; Status DC Meropenem/Sodium Chloride (Merrem/Iv Sodium Chloride 0.9% 50ml) 50 ml @ 100 mls /hr Q8HRS IV Last administered on 07/31/16 13:42; Start 07/30/16 at 22:00 Acetaminophen (Tylenol) 650 mg PRN Q6HRS PRN [place] MILD PAIN / TEMP; Start at 10:30 Active Scripts Active Reported Lo-Dose Aspirin EC (Aspirin) 81 Mg Tablet.dr 81 Mg PO DAILY [Tumeric] 500 Mg PO HS Cymbalta (Duloxetine Hcl) 60 Mg Capsule.dr 60 Mg PO HS Amlodipine Besylate 5 Mg Tablet 5 Mg PO HS Montelukast Sodium Tablet (Montelukast Sodium) 10 Mg Tablet 10 Mg PO HS Calcium 1,000 + D3 Caplet (Calcium Carbonate/Vitamin D3) 1 Each Tablet 1 Each PO NOON Vitamin B-Complex & C (B Complex With Vitamin C) 1 Each Tablet.er 1 Each PO NOON Lipitor (Atorvastatin Calcium) 10 Mg Tablet 10 Mg PO NOON Osteo Bi-Flex Tablet (Glucosamine/D3/Boswellia Sharon) 1 Each Tablet 1 Each PO BIDACBL Aricept (Donepezil Hcl) 10 Mg Tablet 10 Mg PO DAILY Tramadol-Acetaminophn 37.5-325 (Tramadol Hcl/Acetaminophen) 1 Each Tablet 1 Tab PO HS Tramadol-Acetaminophn 37.5-325 (Tramadol Hcl/Acetaminophen) 1 Each Tablet 2 Tab PO DAILYWBKFT Lisinopril 40 Mg Tablet 40 Mg PO DAILY Vitals/I & O Vital Sign - Last 24 Hours 07/30/16 07/30/16 07/30/16 07/30/16 14:45 19:00 20:00 21:00 Temp 99.7 99.2 99.7 99.2 Pulse 99 98 98 Resp 24 28 B/P 128/51 121/50 121/50 Pulse Ox 94 93 O2 Delivery Room Air Room Air Room Air 07/30/16 07/31/16 07/31/16 07/31/16 23:00 03:00 07:00 08:00 Temp 100.9 98.1 97.6 100.9 98.1 97.6 Pulse 96 78 94 Resp 32 28 27 B/P 105/71 115/71 123/50 Pulse Ox 93 94 97 O2 Delivery Room Air Room Air Room Air Room Air 07/31/16 07/31/16 11:00 12:04 Temp 98.8 98.8 98.8 98.8 Pulse 20 91 Resp 20 20 B/P 111/58 111/58 Pulse Ox 94 94 O2 Delivery Room Air Room Air Nutrition Consultation Dietary Evaluation: Recommendations by RD: Increase Calorie Intake, Protein supplementation Expected Outcomes/Goals: to meet > 75% est nutr needs Malnutrition Findings: Food and Nutrition Intake (Mod: <75% est energy req 7days Reduced [address] Strength: N/A Weight Status: Overweight Fluid Accumulation (N/A): N/A BASIA LE MD Jul 31, 2016 14:11
[2016-07-31] MEDS: ASPIRIN 300 MG SUPP.RECT PR SCH (16:34)
[2016-07-31] MEDS: DULOXETINE HCL 30 MG CAPSULE.DR. PO SCH (21:00)
[2016-07-31] MEDS: ATORVASTATIN CALCIUM 10 MG TABLET. PO SCH (21:00)
[2016-07-31] MEDS: MONTELUKAST SODIUM 10 MG TABLET. PO SCH (21:00)
[2016-08-01 03:34] VITALS: BP 120/56
[2016-08-01] MEDS ORDERED: AA 2.75%/CALCIUM/LYTES/D5W 1,000 ML IV SCH (03:40)
[2016-08-01] MEDS: MEROPENEM 500 MG in IV NORMAL SALINE 50ML 50 ML IV SCH (05:32)
[2016-08-01] MEDS: ACETAMINOPHEN 650 MG SUPP.RECT. PR PRN ×2 (05:32→23:14)
[2016-08-01] MEDS: HEPARIN PF for SUB-Q USE 5,000 UNIT/0.5 ML VIAL. SQ SCH (06:01)
[2016-08-01 07:00] VITALS: BP 110/53
[2016-08-01] MEDS: CLOPIDOGREL BISULFATE 75 MG TABLET PO SCH (08:00)
[2016-08-01] MEDS: DONEPEZIL HCL 10 MG TABLET. PO SCH (09:00)
[2016-08-01] MEDS: TRAMADOL 50 MG TABLET. PO SCH (09:00)
[2016-08-01] MEDS: ASPIRIN 300 MG SUPP.RECT PR SCH (09:00)
[2016-08-01] MEDS: METOPROLOL TART IMMED RELEASE 25 MG TABLET PO SCH (09:00)
[2016-08-01 09:20] LABS: BASO # 0.1 x10^3/uL (0.0-0.2); BASO % 0 % (0-3); EOS % 0 % (0-3); HEMATOCRIT 26.8 % (36.0-47.0); HEMOGLOBIN 8.7 g/dL (12.0-15.5); LYMPH # 1.5 x10^3/uL (1.0-4.8); LYMPH % 9 % (24-48); MEAN CORPUSCULAR HEMOGLOBIN 28 pg (25-35); MEAN CORPUSCULAR HGB CONC 32 g/dL (31-37); MEAN CORPUSCULAR VOLUME 85 fL (79-100); MONO % 5 % (0-9); NEUT % 85 % (31-73); PLATELET COUNT 258 x10^3/uL (140-400); RED BLOOD COUNT 3.15 x10^6/uL (3.50-5.40); RED CELL DISTRIBUTION WIDTH 15.6 % (11.5-14.5); WHITE BLOOD COUNT 15.9 x10^3/uL (4.0-11.0)
[2016-08-01 09:34] LABS: CALCIUM 8.3 mg/dL (8.5-10.1); CREATININE 1.5 mg/dL (0.6-1.0); GFR 32.7
[2016-08-01 11:00] VITALS: BP 105/63
[2016-08-01] MEDS: VITAMIN B COMPLEX TABLET. PO SCH (12:00)
--- NOTE | 2016-08-01 13:01 | PDOC ---
PROGRESS NOTES Assessment Problems Medical Problems: (1) Acute cystitis without hematuria Status: Acute (2) Altered mental status Status: Acute Acute and subacute extensive multiple infarcts in bilateral hemispheres. Metabolic encephalopathy. Dementia Plan Comfort care, as discussed with daughter Patient had previous advance directive that she did not want any fluids. Therefore I am discontinuing IV fluids with the concurrence of the family. Subjective none Objective Vital Signs Date Time Temp Pulse Resp B/P Pulse Ox O2 Delivery O2 Flow Rate FiO2 08/01/16 11:00 97.9 87 20 105/63 96 Nasal Cannula 1.0 97.9 Intake and Output 08/01/16 07:00 Intake Total 0 ml Balance 0 ml Intake Oral 0 ml # Voids 4 # Bowel Movements 1 PHYSICAL EXAM Unresponsive Moves legs spontaneously Review of Relevant I have reviewed the following items raffaele (where applicable) has been applied. Labs Laboratory Tests Test 07/31/16 05:01 08/01/16 09:00 White Blood Count 14.2x10^3/uL (4.0-11.0) 15.9x10^3/uL (4.0-11.0) Red Blood Count 3.22x10^6/uL (3.50-5.40) 3.15x10^6/uL (3.50-5.40) Hemoglobin 8.7g/dL (12.0-15.5) 8.7g/dL (12.0-15.5) Hematocrit 26.8% (36.0-47.0) 26.8% (36.0-47.0) Mean Corpuscular Volume 83fL (79-100) 85fL (79-100) Mean Corpuscular Hemoglobin 27pg (25-35) 28pg (25-35) Mean Corpuscular Hemoglobin Concent 32g/dL (31-37) 32g/dL (31-37) Red Cell Distribution Width 15.9% (11.5-14.5) 15.6% (11.5-14.5) Platelet Count 239x10^3/uL (140-400) 258x10^3/uL (140-400) Neutrophils (%) (Auto) 84% (31-73) 85% (31-73) Lymphocytes (%) (Auto) 10% (24-48) 9% (24-48) Monocytes (%) (Auto) 6% (0-9) 5% (0-9) Eosinophils (%) (Auto) 0% (0-3) 0% (0-3) Basophils (%) (Auto) 0% (0-3) 0% (0-3) Neutrophils # (Auto) 11.9x10^3uL (1.8-7.7) 13.5x10^3uL (1.8-7.7) Lymphocytes # (Auto) 1.4x10^3/uL (1.0-4.8) 1.5x10^3/uL (1.0-4.8) Monocytes # (Auto) 0.9x10^3/uL (0.0-1.1) 0.9x10^3/uL (0.0-1.1) Eosinophils # (Auto) 0.0x10^3/uL (0.0-0.7) 0.0x10^3/uL (0.0-0.7) Basophils # (Auto) 0.1x10^3/uL (0.0-0.2) 0.1x10^3/uL (0.0-0.2) Sodium Level 143mmol/L (136-145) 146mmol/L (136-145) Potassium Level 3.8mmol/L (3.5-5.1) 4.0mmol/L (3.5-5.1) Chloride Level 108mmol/L (98-107) 110mmol/L (98-107) Carbon Dioxide Level 25mmol/L (21-32) 26mmol/L (21-32) Anion Gap 10 (6-14) 10 (6-14) Blood Urea Nitrogen 40mg/dL (7-20) 51mg/dL (7-20) Creatinine 1.2mg/dL (0.6-1.0) 1.5mg/dL (0.6-1.0) Estimated GFR (Cockcroft-Gault) 42.3 32.7 Glucose Level 143mg/dL (70-99) 148mg/dL (70-99) Calcium Level 8.4mg/dL (8.5-10.1) 8.3mg/dL (8.5-10.1) Laboratory Tests Test 3/12/17 09:00 White Blood Count 15.9x10^3/uL (4.0-11.0) Red Blood Count 3.15x10^6/uL (3.50-5.40) Hemoglobin 8.7g/dL (12.0-15.5) Hematocrit 26.8% (36.0-47.0) Mean Corpuscular Volume 85fL (79-100) Mean Corpuscular Hemoglobin 28pg (25-35) Mean Corpuscular Hemoglobin Concent 32g/dL (31-37) Red Cell Distribution Width 15.6% (11.5-14.5) Platelet Count 258x10^3/uL (140-400) Neutrophils (%) (Auto) 85% (31-73) Lymphocytes (%) (Auto) 9% (24-48) Monocytes (%) (Auto) 5% (0-9) Eosinophils (%) (Auto) 0% (0-3) Basophils (%) (Auto) 0% (0-3) Neutrophils # (Auto) 13.5x10^3uL (1.8-7.7) Lymphocytes # (Auto) 1.5x10^3/uL (1.0-4.8) Monocytes # (Auto) 0.9x10^3/uL (0.0-1.1) Eosinophils # (Auto) 0.0x10^3/uL (0.0-0.7) Basophils # (Auto) 0.1x10^3/uL (0.0-0.2) Sodium Level 146mmol/L (136-145) Potassium Level 4.0mmol/L (3.5-5.1) Chloride Level 110mmol/L (98-107) Carbon Dioxide Level 26mmol/L (21-32) Anion Gap 10 (6-14) Blood Urea Nitrogen 51mg/dL (7-20) Creatinine 1.5mg/dL (0.6-1.0) Estimated GFR (Cockcroft-Gault) 32.7 Glucose Level 148mg/dL (70-99) Calcium Level 8.3mg/dL (8.5-10.1) Microbiology 07/29/16 Blood Culture - Final, Complete 07/30/16 Urine Culture - Preliminary, Resulted 07/30/16 Urine Culture Result 1 (TRAE) - Preliminary, Resulted Medications Current Medications Sodium Chloride 500 ml @ 500 mls/hr 1X ONCE IV Last administered on 07/27/16 11:27; Start 07/27/16 at 11:15; Stop 07/27/16 at 12:14; Status DC Ceftriaxone Sodium 1 gm/ Sodium Chloride 50 ml @ 100 mls/hr Q24H IV Last administered on 07/29/16 13:00; Start 07/28/16 at 13:00; Stop 07/30/16 at 14:07; Status DC Ceftriaxone Sodium (Rocephin 1gm Ivpb For Omni) 50 ml @ 100 mls/hr 1X ONCE IV Last administered on 07/27/16 13:14; Start 07/27/16 at 12:45; Stop 07/27/16 at 13:14; Status DC Ondansetron HCl (Zofran) 4 mg PRN Q8HRS PRN IV NAUSEA/VOMITING; Start 07/27/16 at 13:00; Stop 07/27/16 at 14:48; Status DC Acetaminophen (Tylenol) 650 mg PRN Q4HRS PRN PO FEVER; Start 07/27/16 at 13:00; Stop 07/28/16 at 12:59; Status DC Ondansetron HCl 4 mg 4 mg PRN Q6HRS PRN IV NAUSEA/VOMITING; Start 07/27/16 at 14 :45; Status Cancel Amino Acids/ Glycerin/ Electrolytes (Procalamine) 1,000 ml @ 80 mls/hr [id number] IV Last administered on 07/28/16 04:33; Start 07/27/16 at 15:00; Stop 07/28/16 at 07:17; Status DC Amlodipine Besylate (Norvasc) 5 mg HS PO Last administered on 07/28/16 20:44; Start 07/27/16 at 21:00; Stop 07/29/16 at 13:30; Status DC Aspirin (Ecotrin) 81 mg HS PO Last administered on 07/29/16 22:42; Start at 21:00; Stop 07/31/16 at 14:10; Status DC Atorvastatin Calcium (Lipitor) 10 mg QHS PO Last administered on 07/29/16 22:31 ; Start 07/27/16 at 21:00 Donepezil HCl (Aricept) 10 mg DAILY PO Last administered on 07/29/16 12:51; Start 07/27/16 at 15:30 Lisinopril (Prinivil) 40 mg DAILY PO Last administered on 07/28/16 09:06; Start 07/27/16 at 15:30; Stop 07/30/16 at 14:07; Status DC Montelukast Sodium (Singulair) 10 mg HS PO Last administered on 07/29/16 22:31 ; Start 07/27/16 at 21:00 Vitamin B Complex (Rufino B) 1 tab DAILY PO ; Start 07/28/16 at 09:00; Stop at 09:00; Status DC Calcium/Vitamin D (Oscal D 500mg/ 200uts) 2 tab DAILY PO ; Start 07/27/16 at 09: 00; Stop 07/27/16 at 15:45; Status DC Duloxetine HCl (Cymbalta) 30 mg QHS PO Last administered on 07/29/16 22:42; Start 07/27/16 at 21:00 Non-Formulary Medication 1 each BID92 PO ; Start 07/28/16 at 09:00; Status UNV Tramadol HCl (Ultram) 50 mg BID PO Last administered on 07/29/16 22:32; Start 07/27/16 at 21:00 Acetaminophen (Tylenol) 325 mg BID PO Last administered on 07/29/16 22:31; Start 07/27/16 at 21:00; Stop 07/31/16 at 10:22; Status DC Non-Formulary Medication 500 mg HS PO ; Start 07/27/16 at 21:00; Status UNV Heparin Sodium (Porcine) 5,000 unit Q8HRS SQ Last administered on 08/01/16 06: 01; Start 07/27/16 at 22:00 Calcium/Vitamin D (Oscal D 500mg/ 200uts) 2 tab NOON PO Last administered on 13:24; Start 07/27/16 at 16:00; Stop 07/31/16 at 10:22; Status DC Vitamin B Complex 1 tab 1 tab NOON PO Last administered on 07/29/16 13:24; Start 07/28/16 at 12:00 Amino Acids/ Electrolytes/ Dextrose (Clinimix E 4.25%-5% Solution) 1,000 ml @ 80 mls/hr [id number] IV Last administered on 07/31/16 12:27; Start 07/28/16 at 07: 30; Stop 08/01/16 at 03:40; Status DC Potassium Chloride 40 meq 40 meq 1X ONCE PO Last administered on 07/28/16 13: 02; Start 07/28/16 at 11:30; Stop 07/28/16 at 11:31; Status DC Potassium Phosphate 10 mmol/ Sodium Chloride 103.3333 ml @ 51.667 m... Q2H IV Last administered on 07/29/16 17:30; Start 07/29/16 at 09:00; Stop 07/29/16 at 12: 59; Status DC Sodium Phosphate/ Dextrose 256.6667 ml @ 64.167 m... 1X ONCE IV Last administered on 07/29/16 20:03; Start 07/29/16 at 09:00; Stop 07/29/16 at 12:59; Status DC Aspirin (Riana Aspirin) 325 mg 1X ONCE PO ; Start 07/30/16 at 10:00; Stop 07/30 at 10:01; Status DC Clopidogrel Bisulfate (Plavix) 75 mg DAILYWBKFT PO ; Start 07/30/16 at 11:00 Metoprolol Tartrate 12.5 mg 12.5 mg BID PO ; Start 07/30/16 at 13:30 Piperacillin Sod/ Tazobactam Sod/ Sodium Chloride (Zosyn/Iv Sodium Chloride 0.9 % 50ml) 50 ml @ 100 mls/hr 1X ONCE IV ; Start 07/30/16 at 14:15; Stop at 14:15; Status DC Piperacillin Sod/ Tazobactam Sod 1 each 1 each PRN DAILY PRN MC SEE COMMENTS; Start 07/30/16 at 14:15; Stop 07/30/16 at 14:15; Status DC Meropenem/Sodium Chloride (Merrem/Iv Sodium Chloride 0.9% 50ml) 50 ml @ 100 mls /hr Q8HRS IV Last administered on 08/01/16 05:32; Start 07/30/16 at 22:00 Acetaminophen (Tylenol) 650 mg PRN Q6HRS PRN CO MILD PAIN / TEMP Last administered on 08/01/16 05:32; Start 07/31/16 at 10:30 Aspirin 300 mg 300 mg DAILY CO Last administered on 07/31/16 16:34; Start 04/08 at 09:00 Amino Acids/ Electrolytes (Clinimix E 2.75%-5% Solution) 1,000 ml @ 80 mls/hr [id number] IV Last administered on 08/01/16 04:01; Start 08/01/16 at 03:40 Active Scripts Active Reported Lo-Dose Aspirin EC (Aspirin) 81 Mg Tablet.dr 81 Mg PO DAILY [Tumeric] 500 Mg PO HS Cymbalta (Duloxetine Hcl) 60 Mg Capsule.dr 60 Mg PO HS Amlodipine Besylate 5 Mg Tablet 5 Mg PO HS Montelukast Sodium Tablet (Montelukast Sodium) 10 Mg Tablet 10 Mg PO HS Calcium 1,000 + D3 Caplet (Calcium Carbonate/Vitamin D3) 1 Each Tablet 1 Each PO NOON Vitamin B-Complex & C (B Complex With Vitamin C) 1 Each Tablet.er 1 Each PO NOON Lipitor (Atorvastatin Calcium) 10 Mg Tablet 10 Mg PO NOON Osteo Bi-Flex Tablet (Glucosamine/D3/Boswellia Sharon) 1 Each Tablet 1 Each PO BIDACBL Aricept (Donepezil Hcl) 10 Mg Tablet 10 Mg PO DAILY Tramadol-Acetaminophn 37.5-325 (Tramadol Hcl/Acetaminophen) 1 Each Tablet 1 Tab PO HS Tramadol-Acetaminophn 37.5-325 (Tramadol Hcl/Acetaminophen) 1 Each Tablet 2 Tab PO [id number] Lisinopril 40 Mg Tablet 40 Mg PO DAILY Vitals/I & O Vital Sign - Last 24 Hours 07/31/16 07/31/16 07/31/16 07/31/16 15:41 19:42 20:00 21:00 Temp 98.8 99.3 98.8 99.3 Pulse 100 96 96 Resp 24 40 B/P 128/62 121/55 121/55 Pulse Ox 88 92 O2 Delivery Room Air Room Air Room Air 07/31/16 08/01/16 08/01/16 08/01/16 23:09 03:34 07:00 08:00 Temp 99.0 99.0 97.5 99.0 99.0 97.5 Pulse 94 95 89 Resp 40 42 B/P 123/60 120/56 110/53 Pulse Ox 98 96 93 O2 Delivery Nasal Cannula Nasal Cannula Nasal Cannula Nasal Cannula O2 Flow Rate 2.0 1.0 1.0 1.0 08/01/16 11:00 Temp 97.9 97.9 Pulse 87 Resp 20 B/P 105/63 Pulse Ox 96 O2 Delivery Nasal Cannula O2 Flow Rate 1.0 Intake and Output 07/31/16 07/31/16 08/01/16 15:00 23:00 07:00 Intake Total 0 ml Balance 0 ml AVILA JORDAN MD Aug 01, 2016 13:01
--- NOTE | 2016-08-01 13:22 | PDOC ---
PROGRESS NOTES Chief Complaint Chief Complaint 1. SIRS POA, no sepsis 2. UTI in an elderly 3. 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 HTN, controlled 6. Advanced dementia 7. SAMUEL, vasomotor 8. DNR 9. hypokalemia 10. hypophosphotemia 11. 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 waiting for displacement. History of Present Illness History of Present Illness very weak, hard to walk with PT today cr better , K 3.2 low randal WBC better, + ucx fever since 07/29, weaker, got ucx ,bcx unresponsive since 07/30 + multiple stroke on MRI wbc higher Vitals Vitals Vital Signs Date Time Temp Pulse Resp B/P Pulse Ox O2 Delivery O2 Flow Rate FiO2 08/01/16 11:00 97.9 87 20 105/63 96 Nasal Cannula 1.0 97.9 Physical Exam Physical Exam AAOX1 General: No acute distress Heart: Regular rate, Normal S1, Normal S2, Other (2/6 systolic murmur ) Lungs: Clear Abdomen: Soft Extremities: No clubbing, No cyanosis, No edema, Normal pulses, No tenderness/ swelling Skin: No significant lesion, Other (trace LE edema ) Labs LABS Laboratory Tests Test 08/01/16 09:00 White Blood Count 15.9x10^3/uL (4.0-11.0) Red Blood Count 3.15x10^6/uL (3.50-5.40) Hemoglobin 8.7g/dL (12.0-15.5) Hematocrit 26.8% (36.0-47.0) Mean Corpuscular Volume 85fL (79-100) Mean Corpuscular Hemoglobin 28pg (25-35) Mean Corpuscular Hemoglobin Concent 32g/dL (31-37) Red Cell Distribution Width 15.6% (11.5-14.5) Platelet Count 258x10^3/uL (140-400) Neutrophils (%) (Auto) 85% (31-73) Lymphocytes (%) (Auto) 9% (24-48) Monocytes (%) (Auto) 5% (0-9) Eosinophils (%) (Auto) 0% (0-3) Basophils (%) (Auto) 0% (0-3) Neutrophils # (Auto) 13.5x10^3uL (1.8-7.7) Lymphocytes # (Auto) 1.5x10^3/uL (1.0-4.8) Monocytes # (Auto) 0.9x10^3/uL (0.0-1.1) Eosinophils # (Auto) 0.0x10^3/uL (0.0-0.7) Basophils # (Auto) 0.1x10^3/uL (0.0-0.2) Sodium Level 146mmol/L (136-145) Potassium Level 4.0mmol/L (3.5-5.1) Chloride Level 110mmol/L (98-107) Carbon Dioxide Level 26mmol/L (21-32) Anion Gap 10 (6-14) Blood Urea Nitrogen 51mg/dL (7-20) Creatinine 1.5mg/dL (0.6-1.0) Estimated GFR (Cockcroft-Gault) 32.7 Glucose Level 148mg/dL (70-99) Calcium Level 8.3mg/dL (8.5-10.1) Review of Systems Review of Systems no fever, chills, sob or chest pain Assessment and Plan Assessmemt and Plan Problems Medical Problems: (1) Acute cystitis without hematuria Status: Acute (2) Altered mental status Status: Acute Problems: Comment Review of Relevant I have reviewed the following items raffaele (where applicable) has been applied. Labs Laboratory Tests Test 07/31/16 05:01 08/01/16 09:00 White Blood Count 14.2x10^3/uL (4.0-11.0) 15.9x10^3/uL (4.0-11.0) Red Blood Count 3.22x10^6/uL (3.50-5.40) 3.15x10^6/uL (3.50-5.40) Hemoglobin 8.7g/dL (12.0-15.5) 8.7g/dL (12.0-15.5) Hematocrit 26.8% (36.0-47.0) 26.8% (36.0-47.0) Mean Corpuscular Volume 83fL (79-100) 85fL (79-100) Mean Corpuscular Hemoglobin 27pg (25-35) 28pg (25-35) Mean Corpuscular Hemoglobin Concent 32g/dL (31-37) 32g/dL (31-37) Red Cell Distribution Width 15.9% (11.5-14.5) 15.6% (11.5-14.5) Platelet Count 239x10^3/uL (140-400) 258x10^3/uL (140-400) Neutrophils (%) (Auto) 84% (31-73) 85% (31-73) Lymphocytes (%) (Auto) 10% (24-48) 9% (24-48) Monocytes (%) (Auto) 6% (0-9) 5% (0-9) Eosinophils (%) (Auto) 0% (0-3) 0% (0-3) Basophils (%) (Auto) 0% (0-3) 0% (0-3) Neutrophils # (Auto) 11.9x10^3uL (1.8-7.7) 13.5x10^3uL (1.8-7.7) Lymphocytes # (Auto) 1.4x10^3/uL (1.0-4.8) 1.5x10^3/uL (1.0-4.8) Monocytes # (Auto) 0.9x10^3/uL (0.0-1.1) 0.9x10^3/uL (0.0-1.1) Eosinophils # (Auto) 0.0x10^3/uL (0.0-0.7) 0.0x10^3/uL (0.0-0.7) Basophils # (Auto) 0.1x10^3/uL (0.0-0.2) 0.1x10^3/uL (0.0-0.2) Sodium Level 143mmol/L (136-145) 146mmol/L (136-145) Potassium Level 3.8mmol/L (3.5-5.1) 4.0mmol/L (3.5-5.1) Chloride Level 108mmol/L (98-107) 110mmol/L (98-107) Carbon Dioxide Level 25mmol/L (21-32) 26mmol/L (21-32) Anion Gap 10 (6-14) 10 (6-14) Blood Urea Nitrogen 40mg/dL (7-20) 51mg/dL (7-20) Creatinine 1.2mg/dL (0.6-1.0) 1.5mg/dL (0.6-1.0) Estimated GFR (Cockcroft-Gault) 42.3 32.7 Glucose Level 143mg/dL (70-99) 148mg/dL (70-99) Calcium Level 8.4mg/dL (8.5-10.1) 8.3mg/dL (8.5-10.1) Laboratory Tests Test 08/01/16 09:00 White Blood Count 15.9x10^3/uL (4.0-11.0) Red Blood Count 3.15x10^6/uL (3.50-5.40) Hemoglobin 8.7g/dL (12.0-15.5) Hematocrit 26.8% (36.0-47.0) Mean Corpuscular Volume 85fL (79-100) Mean Corpuscular Hemoglobin 28pg (25-35) Mean Corpuscular Hemoglobin Concent 32g/dL (31-37) Red Cell Distribution Width 15.6% (11.5-14.5) Platelet Count 258x10^3/uL (140-400) Neutrophils (%) (Auto) 85% (31-73) Lymphocytes (%) (Auto) 9% (24-48) Monocytes (%) (Auto) 5% (0-9) Eosinophils (%) (Auto) 0% (0-3) Basophils (%) (Auto) 0% (0-3) Neutrophils # (Auto) 13.5x10^3uL (1.8-7.7) Lymphocytes # (Auto) 1.5x10^3/uL (1.0-4.8) Monocytes # (Auto) 0.9x10^3/uL (0.0-1.1) Eosinophils # (Auto) 0.0x10^3/uL (0.0-0.7) Basophils # (Auto) 0.1x10^3/uL (0.0-0.2) Sodium Level 146mmol/L (136-145) Potassium Level 4.0mmol/L (3.5-5.1) Chloride Level 110mmol/L (98-107) Carbon Dioxide Level 26mmol/L (21-32) Anion Gap 10 (6-14) Blood Urea Nitrogen 51mg/dL (7-20) Creatinine 1.5mg/dL (0.6-1.0) Estimated GFR (Cockcroft-Gault) 32.7 Glucose Level 148mg/dL (70-99) Calcium Level 8.3mg/dL (8.5-10.1) Microbiology 07/29/16 Blood Culture - Final, Complete 07/30/16 Urine Culture - Preliminary, Resulted 07/30/16 Urine Culture Result 1 (TRAE) - Preliminary, Resulted Medications Current Medications Sodium Chloride 500 ml @ 500 mls/hr 1X ONCE IV Last administered on 07/27/16 11:27; Start 07/27/16 at 11:15; Stop 07/27/16 at 12:14; Status DC Ceftriaxone Sodium 1 gm/ Sodium Chloride 50 ml @ 100 mls/hr Q24H IV Last administered on 07/29/16 13:00; Start 07/28/16 at 13:00; Stop 07/30/16 at 14:07; Status DC Ceftriaxone Sodium (Rocephin 1gm Ivpb For Omni) 50 ml @ 100 mls/hr 1X ONCE IV Last administered on 07/27/16 13:14; Start 07/27/16 at 12:45; Stop 07/27/16 at 13:14; Status DC Ondansetron HCl (Zofran) 4 mg PRN Q8HRS PRN IV NAUSEA/VOMITING; Start 07/27/16 at 13:00; Stop 07/27/16 at 14:48; Status DC Acetaminophen (Tylenol) 650 mg PRN Q4HRS PRN PO FEVER; Start 07/27/16 at 13:00; Stop 07/28/16 at 12:59; Status DC Ondansetron HCl 4 mg 4 mg PRN Q6HRS PRN IV NAUSEA/VOMITING; Start 07/27/16 at 14 :45; Status Cancel Amino Acids/ Glycerin/ Electrolytes (Procalamine) 1,000 ml @ 80 mls/hr [id number] IV Last administered on 07/28/16 04:33; Start 07/27/16 at 15:00; Stop 07/28/16 at 07:17; Status DC Amlodipine Besylate (Norvasc) 5 mg HS PO Last administered on 07/28/16 20:44; Start 07/27/16 at 21:00; Stop 07/29/16 at 13:30; Status DC Aspirin (Ecotrin) 81 mg HS PO Last administered on 07/29/16 22:42; Start at 21:00; Stop 07/31/16 at 14:10; Status DC Atorvastatin Calcium (Lipitor) 10 mg QHS PO Last administered on 07/29/16 22:31 ; Start 07/27/16 at 21:00; Stop 08/01/16 at 13:05; Status DC Donepezil HCl (Aricept) 10 mg DAILY PO Last administered on 07/29/16 12:51; Start 07/27/16 at 15:30; Stop 08/01/16 at 13:05; Status DC Lisinopril (Prinivil) 40 mg DAILY PO Last administered on 07/28/16 09:06; Start 07/27/16 at 15:30; Stop 07/30/16 at 14:07; Status DC Montelukast Sodium (Singulair) 10 mg HS PO Last administered on 07/29/16 22:31 ; Start 07/27/16 at 21:00; Stop 08/01/16 at 13:05; Status DC Vitamin B Complex (Rufino B) 1 tab DAILY PO ; Start 07/28/16 at 09:00; Stop at 09:00; Status DC Calcium/Vitamin D (Oscal D 500mg/ 200uts) 2 tab DAILY PO ; Start 07/27/16 at 09: 00; Stop 07/27/16 at 15:45; Status DC Duloxetine HCl (Cymbalta) 30 mg QHS PO Last administered on 07/29/16 22:42; Start 07/27/16 at 21:00; Stop 08/01/16 at 13:05; Status DC Non-Formulary Medication 1 each BID92 PO ; Start 07/28/16 at 09:00; Status UNV Tramadol HCl (Ultram) 50 mg BID PO Last administered on 07/29/16 22:32; Start 07/27/16 at 21:00; Stop 08/01/16 at 13:05; Status DC Acetaminophen (Tylenol) 325 mg BID PO Last administered on 07/29/16 22:31; Start 07/27/16 at 21:00; Stop 07/31/16 at 10:22; Status DC Non-Formulary Medication 500 mg HS PO ; Start 07/27/16 at 21:00; Status UNV Heparin Sodium (Porcine) 5,000 unit Q8HRS SQ Last administered on 08/01/16 06: 01; Start 07/27/16 at 22:00; Stop 08/01/16 at 13:05; Status DC Calcium/Vitamin D (Oscal D 500mg/ 200uts) 2 tab NOON PO Last administered on 13:24; Start 07/27/16 at 16:00; Stop 07/31/16 at 10:22; Status DC Vitamin B Complex 1 tab 1 tab NOON PO Last administered on 07/29/16 13:24; Start 07/28/16 at 12:00; Stop 08/01/16 at 13:05; Status DC Amino Acids/ Electrolytes/ Dextrose (Clinimix E 4.25%-5% Solution) 1,000 ml @ 80 mls/hr [id number] IV Last administered on 07/31/16 12:27; Start 07/28/16 at 07: 30; Stop 08/01/16 at 03:40; Status DC Potassium Chloride 40 meq 40 meq 1X ONCE PO Last administered on 07/28/16 13: 02; Start 07/28/16 at 11:30; Stop 07/28/16 at 11:31; Status DC Potassium Phosphate 10 mmol/ Sodium Chloride 103.3333 ml @ 51.667 m... Q2H IV Last administered on 07/29/16 17:30; Start 07/29/16 at 09:00; Stop 07/29/16 at 12: 59; Status DC Sodium Phosphate/ Dextrose 256.6667 ml @ 64.167 m... 1X ONCE IV Last administered on 07/29/16 20:03; Start 07/29/16 at 09:00; Stop 07/29/16 at 12:59; Status DC Aspirin (Riana Aspirin) 325 mg 1X ONCE PO ; Start 07/30/16 at 10:00; Stop 07/30 at 10:01; Status DC Clopidogrel Bisulfate (Plavix) 75 mg DAILYWBKFT PO ; Start 07/30/16 at 11:00; Stop 08/01/16 at 13:05; Status DC Metoprolol Tartrate 12.5 mg 12.5 mg BID PO ; Start 07/30/16 at 13:30; Stop 08/01 at 13:05; Status DC Piperacillin Sod/ Tazobactam Sod/ Sodium Chloride (Zosyn/Iv Sodium Chloride 0.9 % 50ml) 50 ml @ 100 mls/hr 1X ONCE IV ; Start 07/30/16 at 14:15; Stop at 14:15; Status DC Piperacillin Sod/ Tazobactam Sod 1 each 1 each PRN DAILY PRN MC SEE COMMENTS; Start 07/30/16 at 14:15; Stop 07/30/16 at 14:15; Status DC Meropenem/Sodium Chloride (Merrem/Iv Sodium Chloride 0.9% 50ml) 50 ml @ 100 mls /hr Q8HRS IV Last administered on 08/01/16 05:32; Start 07/30/16 at 22:00; Stop 08/01/16 at 13:05; Status DC Acetaminophen (Tylenol) 650 mg PRN Q6HRS PRN RI MILD PAIN / TEMP Last administered on 08/01/16 05:32; Start 07/31/16 at 10:30 Aspirin 300 mg 300 mg DAILY RI Last administered on 07/31/16 16:34; Start 04/08 at 09:00; Stop 08/01/16 at 13:05; Status DC Amino Acids/ Electrolytes (Clinimix E 2.75%-5% Solution) 1,000 ml @ 80 mls/hr [id number] IV Last administered on 08/01/16 04:01; Start 08/01/16 at 03:40; Stop 08/01/16 at 13:05; Status DC Morphine Sulfate 2 mg PRN Q2HR PRN IV PAIN; Start 08/01/16 at 13:15 Scopolamine (Transderm-Scop) 1 patch Q3DAYS TD ; Start 08/01/16 at 14:00 Active Scripts Active Reported Lo-Dose Aspirin EC (Aspirin) 81 Mg Tablet.dr 81 Mg PO DAILY [Tumeric] 500 Mg PO HS Cymbalta (Duloxetine Hcl) 60 Mg Capsule.dr 60 Mg PO HS Amlodipine Besylate 5 Mg Tablet 5 Mg PO HS Montelukast Sodium Tablet (Montelukast Sodium) 10 Mg Tablet 10 Mg PO HS Calcium 1,000 + D3 Caplet (Calcium Carbonate/Vitamin D3) 1 Each Tablet 1 Each PO NOON Vitamin B-Complex & C (B Complex With Vitamin C) 1 Each Tablet.er 1 Each PO NOON Lipitor (Atorvastatin Calcium) 10 Mg Tablet 10 Mg PO NOON Osteo Bi-Flex Tablet (Glucosamine/D3/Boswellia Sharon) 1 Each Tablet 1 Each PO BIDACBL Aricept (Donepezil Hcl) 10 Mg Tablet 10 Mg PO DAILY Tramadol-Acetaminophn 37.5-325 (Tramadol Hcl/Acetaminophen) 1 Each Tablet 1 Tab PO HS Tramadol-Acetaminophn 37.5-325 (Tramadol Hcl/Acetaminophen) 1 Each Tablet 2 Tab PO DAILYWBKFT Lisinopril 40 Mg Tablet 40 Mg PO DAILY Vitals/I & O Vital Sign - Last 24 Hours 07/31/16 07/31/16 07/31/16 07/31/16 15:41 19:42 20:00 21:00 Temp 98.8 99.3 98.8 99.3 Pulse 100 96 96 Resp 24 40 B/P 128/62 121/55 121/55 Pulse Ox 88 92 O2 Delivery Room Air Room Air Room Air 07/31/16 08/01/16 08/01/16 08/01/16 23:09 03:34 07:00 08:00 Temp 99.0 99.0 97.5 99.0 99.0 97.5 Pulse 94 95 89 Resp 40 42 B/P 123/60 120/56 110/53 Pulse Ox 98 96 93 O2 Delivery Nasal Cannula Nasal Cannula Nasal Cannula Nasal Cannula O2 Flow Rate 2.0 1.0 1.0 1.0 08/01/16 11:00 Temp 97.9 97.9 Pulse 87 Resp 20 B/P 105/63 Pulse Ox 96 O2 Delivery Nasal Cannula O2 Flow Rate 1.0 Intake and Output 07/31/16 07/31/16 08/01/16 15:00 23:00 07:00 Intake Total 0 ml Balance 0 ml Nutrition Consultation Dietary Evaluation: Recommendations by RD: Increase Calorie Intake, Protein supplementation Expected Outcomes/Goals: to meet > 75% est nutr needs Malnutrition Findings: Food and Nutrition Intake (Mod: <75% est energy req 7days Reduced Digital Sales Manager Strength: N/A Weight Status: Overweight Fluid Accumulation (N/A): N/A BASIA LE MD Aug 01, 2016 13:22
[2016-08-01] MEDS ORDERED: SCOPOLAMINE 1.5MG PATCH. TD SCH (14:00)
[2016-08-01 15:00] VITALS: BP 117/83
--- NOTE | 2016-08-01 16:05 | CONS ---
DATE OF CONSULTATION: 07/30/2016 REQUESTING PHYSICIAN: Dr. Ma. REASON FOR CONSULTATION: Fever. SOURCE OF INFORMATION: Obtained from the medical record and the patient's daughters. HISTORY OF PRESENT ILLNESS: This patient is an 89-year-old who presented with increased confusion and less now mobility over a 3-day period. She has a history of Alzheimer's and is cared for by her daughters at home. The patient normally is able to carry on a conversation and walk. She has had similar symptoms in the past associated with urinary tract infection. On arrival, she had elevated white blood cell count of 19,300, segs 68%, and bands 19%. A urinalysis was positive for wbc's, leukocyte esterase, and bacterial as well as squamous epithelial cells. A urine culture grew E. coli, resistant to ampicillin, fluoroquinolone, piperacillin, tetracycline, trimethoprim-sulfa, otherwise sensitive and Enterococcus faecalis penicillin sensitive. Blood cultures are negative so far. A brain MRI without contrast revealed multiple extensive small scattered areas of acute or subacute infarction throughout the cerebral and cerebellar hemispheres. She has been having fevers with persistent leukocytosis. Hence, Infectious Disease is consulted. PAST MEDICAL HISTORY: Hemorrhagic cerebrovascular accident, Alzheimer disease, hypercholesterolemia, hypertension, urinary tract infection, arthritis, and incontinence. PAST SURGICAL HISTORY: Aortic stent, cholecystectomy, and hysterectomy. FAMILY HISTORY: Noncontributory. SOCIAL HISTORY: The patient lives at home with her daughter. Nonsmoker. ALLERGIES: No known drug allergies. MEDICATIONS: Meropenem, previously on ceftriaxone. Other medications are available and have been reviewed on the MAR. REVIEW OF SYSTEMS: Unobtainable as the patient is encephalopathic. PHYSICAL EXAMINATION: GENERAL: female lying in bed in no apparent distress. VITAL SIGNS: Temperature is 98.8, T-max 100.9, blood pressure 111/58, heart rate 91, respiratory rate 20, and pulse oximetry 94% on room air. Weight 181.25 pounds. HEENT: Pupils are equally round, normal conjunctivae, unable to examine oral cavity. LUNGS: Clear to auscultation. HEART: Normal S1 and S2. ABDOMEN: Bowel sounds are present. Soft, no grimace or guarding to palpation. EXTREMITIES: No gross edema or cyanosis. SKIN: Without rash. Warm to touch. NEUROLOGIC: Minimally arousable. Grunts to voice. Does not follow commands. LABORATORY DATA: Today's WBC 14.2, hemoglobin 8.7, hematocrit 26.8, and platelet count 239,000. Electrolytes are unremarkable. Creatinine 1.2, BUN 40, and glucose 143. TSH 1.859. Repeat urinalysis on July 30, 2016, showed wbc's, leukocyte esterase, blood, moderate squamous epithelial cells, and no bacteria. Influenza screen was negative. Chest x-ray showed no acute cardiopulmonary abnormalities. Brain MRI per HPI. Carotid Doppler sonogram showed no evidence of hemodynamically significant stenosis. IMPRESSION: 1. Fever, possibly reactive from multiple infarcts versus urinary tract infection. 2. Leukocytosis. 3. Escherichia coli and Enterococcus faecalis in the urine. Questionable true infection as moderate squamous epithelial cells present, and repeat urinalysis on July 30, 2016, showed no bacteria. 4. Acute encephalopathy. 5. Multiple acute and subacute cerebral and cerebellar infarcts. 6. Alzheimer disease. PLAN: Continue the meropenem but will wean soon. Palliative care meeting is scheduled for Tuesday. Prognosis is poor. Thank you Dr. Ma for asking us to participate in this patient's care. Should you have any further questions or concerns, please call. The patient was seen, examined, and plan of care was implemented by Dr. Jd Mera. JD MERA MD DR: ADAM/zahira JOB#: [id number] / [id number]
[2016-08-01 19:54] VITALS: BP 114/54
[2016-08-01 23:09] VITALS: BP 104/54
[2016-08-02 03:18] VITALS: BP 113/61
[2016-08-02 07:00] VITALS: BP 110/59
[2016-08-02] MEDS: MORPHINE SULFATE 2 MG/ML DISP.SYRIN. IV PRN ×4 (08:35→17:11)
--- NOTE | 2016-08-02 10:14 | PDOC ---
PROGRESS NOTES Chief Complaint Chief Complaint Altered mental status History of Present Illness History of Present Illness Patient is unresponsive but resting comfortably. Family is not bedside at this time. Will continue comfort care. Vitals Vitals Vital Signs Date Time Temp Pulse Resp B/P Pulse Ox O2 Delivery O2 Flow Rate FiO2 08/02/16 07:00 98.3 88 30 110/59 95 Nasal Cannula 0.5 98.3 Physical Exam General: No acute distress, Other (Unresponsive) Heart: Regular rate, Normal S1, Normal S2 Lungs: Clear, Other (No wheezing) Abdomen: Soft Extremities: No cyanosis, Other (trace LE edema) Skin: No significant lesion Review of Systems Review of Systems Patient is unresponsive. She was afebrile overnight. Assessment and Plan Assessmemt and Plan Problems Medical Problems: (1) Acute cystitis without hematuria Status: Acute (2) Altered mental status Status: Acute 1. SIRS POA, no sepsis 2. UTI in an elderly 3. Geriatric, fall risk 4. 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 HTN, controlled 6. Advanced dementia 7. SAMUEL, vasomotor 8. DNR 9. Hypokalemia 10. Hypophosphotemia 11. 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 Continue Scopolamine Continue morphine and tylenol for pain control Will be available to family for any questions. Problems: Comment Review of Relevant I have reviewed the following items raffaele (where applicable) has been applied. Labs Laboratory Tests Test 08/01/16 09:00 White Blood Count 15.9x10^3/uL (4.0-11.0) Red Blood Count 3.15x10^6/uL (3.50-5.40) Hemoglobin 8.7g/dL (12.0-15.5) Hematocrit 26.8% (36.0-47.0) Mean Corpuscular Volume 85fL (79-100) Mean Corpuscular Hemoglobin 28pg (25-35) Mean Corpuscular Hemoglobin Concent 32g/dL (31-37) Red Cell Distribution Width 15.6% (11.5-14.5) Platelet Count 258x10^3/uL (140-400) Neutrophils (%) (Auto) 85% (31-73) Lymphocytes (%) (Auto) 9% (24-48) Monocytes (%) (Auto) 5% (0-9) Eosinophils (%) (Auto) 0% (0-3) Basophils (%) (Auto) 0% (0-3) Neutrophils # (Auto) 13.5x10^3uL (1.8-7.7) Lymphocytes # (Auto) 1.5x10^3/uL (1.0-4.8) Monocytes # (Auto) 0.9x10^3/uL (0.0-1.1) Eosinophils # (Auto) 0.0x10^3/uL (0.0-0.7) Basophils # (Auto) 0.1x10^3/uL (0.0-0.2) Sodium Level 146mmol/L (136-145) Potassium Level 4.0mmol/L (3.5-5.1) Chloride Level 110mmol/L (98-107) Carbon Dioxide Level 26mmol/L (21-32) Anion Gap 10 (6-14) Blood Urea Nitrogen 51mg/dL (7-20) Creatinine 1.5mg/dL (0.6-1.0) Estimated GFR (Cockcroft-Gault) 32.7 Glucose Level 148mg/dL (70-99) Calcium Level 8.3mg/dL (8.5-10.1) Microbiology 07/29/16 Blood Culture - Preliminary, Resulted 07/29/16 Blood Culture Result 1 (TRAE) - Preliminary, Resulted 07/30/16 Urine Culture - Final, Complete 07/30/16 Urine Culture Result 1 (TRAE) - Final, Complete 07/30/16 Antimicrobic Susceptibility - Final, Complete Medications Current Medications Sodium Chloride 500 ml @ 500 mls/hr 1X ONCE IV Last administered on 07/27/16 11:27; Start 07/27/16 at 11:15; Stop 07/27/16 at 12:14; Status DC Ceftriaxone Sodium 1 gm/ Sodium Chloride 50 ml @ 100 mls/hr Q24H IV Last administered on 07/29/16 13:00; Start 07/28/16 at 13:00; Stop 07/30/16 at 14:07; Status DC Ceftriaxone Sodium (Rocephin 1gm Ivpb For Omni) 50 ml @ 100 mls/hr 1X ONCE IV Last administered on 07/27/16 13:14; Start 07/27/16 at 12:45; Stop 07/27/16 at 13:14; Status DC Ondansetron HCl (Zofran) 4 mg PRN Q8HRS PRN IV NAUSEA/VOMITING; Start 07/27/16 at 13:00; Stop 07/27/16 at 14:48; Status DC Acetaminophen (Tylenol) 650 mg PRN Q4HRS PRN PO FEVER; Start 07/27/16 at 13:00; Stop 07/28/16 at 12:59; Status DC Ondansetron HCl 4 mg 4 mg PRN Q6HRS PRN IV NAUSEA/VOMITING; Start 07/27/16 at 14 :45; Status Cancel Amino Acids/ Glycerin/ Electrolytes (Procalamine) 1,000 ml @ 80 mls/hr [id number] IV Last administered on 07/28/16 04:33; Start 07/27/16 at 15:00; Stop 07/28/16 at 07:17; Status DC Amlodipine Besylate (Norvasc) 5 mg HS PO Last administered on 07/28/16 20:44; Start 07/27/16 at 21:00; Stop 07/29/16 at 13:30; Status DC Aspirin (Ecotrin) 81 mg HS PO Last administered on 07/29/16 22:42; Start at 21:00; Stop 07/31/16 at 14:10; Status DC Atorvastatin Calcium (Lipitor) 10 mg QHS PO Last administered on 07/29/16 22:31 ; Start 07/27/16 at 21:00; Stop 08/01/16 at 13:05; Status DC Donepezil HCl (Aricept) 10 mg DAILY PO Last administered on 07/29/16 12:51; Start 07/27/16 at 15:30; Stop 08/01/16 at 13:05; Status DC Lisinopril (Prinivil) 40 mg DAILY PO Last administered on 07/28/16 09:06; Start 07/27/16 at 15:30; Stop 07/30/16 at 14:07; Status DC Montelukast Sodium (Singulair) 10 mg HS PO Last administered on 07/29/16 22:31 ; Start 07/27/16 at 21:00; Stop 08/01/16 at 13:05; Status DC Vitamin B Complex (Rufino B) 1 tab DAILY PO ; Start 07/28/16 at 09:00; Stop at 09:00; Status DC Calcium/Vitamin D (Oscal D 500mg/ 200uts) 2 tab DAILY PO ; Start 07/27/16 at 09: 00; Stop 07/27/16 at 15:45; Status DC Duloxetine HCl (Cymbalta) 30 mg QHS PO Last administered on 07/29/16 22:42; Start 07/27/16 at 21:00; Stop 08/01/16 at 13:05; Status DC Non-Formulary Medication 1 each BID92 PO ; Start 07/28/16 at 09:00; Status UNV Tramadol HCl (Ultram) 50 mg BID PO Last administered on 07/29/16 22:32; Start 07/27/16 at 21:00; Stop 08/01/16 at 13:05; Status DC Acetaminophen (Tylenol) 325 mg BID PO Last administered on 07/29/16 22:31; Start 07/27/16 at 21:00; Stop 07/31/16 at 10:22; Status DC Non-Formulary Medication 500 mg HS PO ; Start 07/27/16 at 21:00; Status UNV Heparin Sodium (Porcine) 5,000 unit Q8HRS SQ Last administered on 08/01/16 06: 01; Start 07/27/16 at 22:00; Stop 08/01/16 at 13:05; Status DC Calcium/Vitamin D (Oscal D 500mg/ 200uts) 2 tab NOON PO Last administered on 13:24; Start 07/27/16 at 16:00; Stop 07/31/16 at 10:22; Status DC Vitamin B Complex 1 tab 1 tab NOON PO Last administered on 07/29/16 13:24; Start 07/28/16 at 12:00; Stop 08/01/16 at 13:05; Status DC Amino Acids/ Electrolytes/ Dextrose (Clinimix E 4.25%-5% Solution) 1,000 ml @ 80 mls/hr [id number] IV Last administered on 07/31/16 12:27; Start 07/28/16 at 07: 30; Stop 08/01/16 at 03:40; Status DC Potassium Chloride 40 meq 40 meq 1X ONCE PO Last administered on 07/28/16 13: 02; Start 07/28/16 at 11:30; Stop 07/28/16 at 11:31; Status DC Potassium Phosphate 10 mmol/ Sodium Chloride 103.3333 ml @ 51.667 m... Q2H IV Last administered on 07/29/16 17:30; Start 07/29/16 at 09:00; Stop 07/29/16 at 12: 59; Status DC Sodium Phosphate/ Dextrose 256.6667 ml @ 64.167 m... 1X ONCE IV Last administered on 07/29/16 20:03; Start 07/29/16 at 09:00; Stop 07/29/16 at 12:59; Status DC Aspirin (Riana Aspirin) 325 mg 1X ONCE PO ; Start 07/30/16 at 10:00; Stop 07/30 at 10:01; Status DC Clopidogrel Bisulfate (Plavix) 75 mg DAILYWBKFT PO ; Start 07/30/16 at 11:00; Stop 08/01/16 at 13:05; Status DC Metoprolol Tartrate 12.5 mg 12.5 mg BID PO ; Start 07/30/16 at 13:30; Stop 08/01 at 13:05; Status DC Piperacillin Sod/ Tazobactam Sod/ Sodium Chloride (Zosyn/Iv Sodium Chloride 0.9 % 50ml) 50 ml @ 100 mls/hr 1X ONCE IV ; Start 07/30/16 at 14:15; Stop at 14:15; Status DC Piperacillin Sod/ Tazobactam Sod 1 each 1 each PRN DAILY PRN MC SEE COMMENTS; Start 07/30/16 at 14:15; Stop 07/30/16 at 14:15; Status DC Meropenem/Sodium Chloride (Merrem/Iv Sodium Chloride 0.9% 50ml) 50 ml @ 100 mls /hr Q8HRS IV Last administered on 08/01/16 05:32; Start 07/30/16 at 22:00; Stop 08/01/16 at 13:05; Status DC Acetaminophen (Tylenol) 650 mg PRN Q6HRS PRN [place] MILD PAIN / TEMP Last administered on 08/01/16 23:14; Start 07/31/16 at 10:30 Aspirin 300 mg 300 mg DAILY [place] Last administered on 07/31/16 16:34; Start 04/08 at 09:00; Stop 08/01/16 at 13:05; Status DC Amino Acids/ Electrolytes (Clinimix E 2.75%-5% Solution) 1,000 ml @ 80 mls/hr [id number] IV Last administered on 08/01/16 04:01; Start 08/01/16 at 03:40; Stop 08/01/16 at 13:05; Status DC Morphine Sulfate 2 mg PRN Q2HR PRN IV PAIN Last administered on 08/02/16 08:35 ; Start 08/01/16 at 13:15 Scopolamine (Transderm-Scop) 1 patch Q3DAYS TD Last administered on 08/01/16 13:38; Start 08/01/16 at 14:00 Active Scripts Active Reported Lo-Dose Aspirin EC (Aspirin) 81 Mg Tablet.dr 81 Mg PO DAILY [Tumeric] 500 Mg PO HS Cymbalta (Duloxetine Hcl) 60 Mg Capsule.dr 60 Mg PO HS Amlodipine Besylate 5 Mg Tablet 5 Mg PO HS Montelukast Sodium Tablet (Montelukast Sodium) 10 Mg Tablet 10 Mg PO HS Calcium 1,000 + D3 Caplet (Calcium Carbonate/Vitamin D3) 1 Each Tablet 1 Each PO NOON Vitamin B-Complex & C (B Complex With Vitamin C) 1 Each Tablet.er 1 Each PO NOON Lipitor (Atorvastatin Calcium) 10 Mg Tablet 10 Mg PO NOON Osteo Bi-Flex Tablet (Glucosamine/D3/Boswellia Sharon) 1 Each Tablet 1 Each PO BIDACBL Aricept (Donepezil Hcl) 10 Mg Tablet 10 Mg PO DAILY Tramadol-Acetaminophn 37.5-325 (Tramadol Hcl/Acetaminophen) 1 Each Tablet 1 Tab PO HS Tramadol-Acetaminophn 37.5-325 (Tramadol Hcl/Acetaminophen) 1 Each Tablet 2 Tab PO DAILYWBKFT Lisinopril 40 Mg Tablet 40 Mg PO DAILY Vitals/I & O Vital Sign - Last 24 Hours 08/01/16 08/01/16 08/01/16 08/01/16 11:00 15:00 19:54 20:00 Temp 97.9 98.9 98.3 97.9 98.9 98.3 Pulse 87 87 87 Resp 20 44 40 B/P 105/63 117/83 114/54 Pulse Ox 96 94 95 O2 Delivery Nasal Cannula Nasal Cannula Room Air Nasal Cannula O2 Flow Rate 1.0 0.5 0.5 08/01/16 08/02/16 08/02/16 23:09 03:18 07:00 Temp 99.7 97.4 98.3 99.7 97.4 98.3 Pulse 84 88 88 Resp 42 40 30 B/P 104/54 113/61 110/59 Pulse Ox 96 96 95 O2 Delivery Nasal Cannula Nasal Cannula Nasal Cannula O2 Flow Rate 0.5 0.5 0.5 Intake and Output 08/01/16 08/01/16 08/02/16 15:00 23:00 07:00 Intake Total 0 ml 0 ml Balance 0 ml 0 ml Nutrition Consultation Dietary Evaluation: Recommendations by RD: Increase Calorie Intake, Protein supplementation Expected Outcomes/Goals: to meet > 75% est nutr needs Malnutrition Findings: Food and Nutrition Intake (Mod: <75% est energy req 7days Reduced Soaker Helper Strength: N/A Weight Status: Overweight Fluid Accumulation (N/A): N/A WANDER GONZALES III DO Aug 02, 2016 10:13
--- NOTE | 2016-08-02 10:41 | PDOC ---
PROGRESS NOTES Assessment Problems Medical Problems: (1) Acute cystitis without hematuria Status: Acute (2) Altered mental status Status: Acute Acute and subacute extensive multiple infarcts in bilateral hemispheres. Metabolic encephalopathy. Dementia Plan Hospice Continue off IVF and all meds Subjective none Objective Vital Signs Date Time Temp Pulse Resp B/P Pulse Ox O2 Delivery O2 Flow Rate FiO2 08/02/16 07:00 98.3 88 30 110/59 95 Nasal Cannula 0.5 98.3 Intake and Output 08/02/16 07:00 Intake Total 0 ml Balance 0 ml Intake Oral 0 ml # Voids 3 PHYSICAL EXAM Unresponsive Appears comfortable Review of Relevant I have reviewed the following items raffaele (where applicable) has been applied. Labs Laboratory Tests Test 08/01/16 09:00 White Blood Count 15.9x10^3/uL (4.0-11.0) Red Blood Count 3.15x10^6/uL (3.50-5.40) Hemoglobin 8.7g/dL (12.0-15.5) Hematocrit 26.8% (36.0-47.0) Mean Corpuscular Volume 85fL (79-100) Mean Corpuscular Hemoglobin 28pg (25-35) Mean Corpuscular Hemoglobin Concent 32g/dL (31-37) Red Cell Distribution Width 15.6% (11.5-14.5) Platelet Count 258x10^3/uL (140-400) Neutrophils (%) (Auto) 85% (31-73) Lymphocytes (%) (Auto) 9% (24-48) Monocytes (%) (Auto) 5% (0-9) Eosinophils (%) (Auto) 0% (0-3) Basophils (%) (Auto) 0% (0-3) Neutrophils # (Auto) 13.5x10^3uL (1.8-7.7) Lymphocytes # (Auto) 1.5x10^3/uL (1.0-4.8) Monocytes # (Auto) 0.9x10^3/uL (0.0-1.1) Eosinophils # (Auto) 0.0x10^3/uL (0.0-0.7) Basophils # (Auto) 0.1x10^3/uL (0.0-0.2) Sodium Level 146mmol/L (136-145) Potassium Level 4.0mmol/L (3.5-5.1) Chloride Level 110mmol/L (98-107) Carbon Dioxide Level 26mmol/L (21-32) Anion Gap 10 (6-14) Blood Urea Nitrogen 51mg/dL (7-20) Creatinine 1.5mg/dL (0.6-1.0) Estimated GFR (Cockcroft-Gault) 32.7 Glucose Level 148mg/dL (70-99) Calcium Level 8.3mg/dL (8.5-10.1) Microbiology 07/29/16 Blood Culture - Preliminary, Resulted 07/29/16 Blood Culture Result 1 (TRAE) - Preliminary, Resulted 07/30/16 Urine Culture - Final, Complete 07/30/16 Urine Culture Result 1 (TRAE) - Final, Complete 07/30/16 Antimicrobic Susceptibility - Final, Complete Medications Current Medications Sodium Chloride 500 ml @ 500 mls/hr 1X ONCE IV Last administered on 07/27/16 11:27; Start 07/27/16 at 11:15; Stop 07/27/16 at 12:14; Status DC Ceftriaxone Sodium 1 gm/ Sodium Chloride 50 ml @ 100 mls/hr Q24H IV Last administered on 07/29/16 13:00; Start 07/28/16 at 13:00; Stop 07/30/16 at 14:07; Status DC Ceftriaxone Sodium (Rocephin 1gm Ivpb For Omni) 50 ml @ 100 mls/hr 1X ONCE IV Last administered on 07/27/16 13:14; Start 07/27/16 at 12:45; Stop 07/27/16 at 13:14; Status DC Ondansetron HCl (Zofran) 4 mg PRN Q8HRS PRN IV NAUSEA/VOMITING; Start 07/27/16 at 13:00; Stop 07/27/16 at 14:48; Status DC Acetaminophen (Tylenol) 650 mg PRN Q4HRS PRN PO FEVER; Start 07/27/16 at 13:00; Stop 07/28/16 at 12:59; Status DC Ondansetron HCl 4 mg 4 mg PRN Q6HRS PRN IV NAUSEA/VOMITING; Start 07/27/16 at 14 :45; Status Cancel Amino Acids/ Glycerin/ Electrolytes (Procalamine) 1,000 ml @ 80 mls/hr [id number] IV Last administered on 07/28/16 04:33; Start 07/27/16 at 15:00; Stop 07/28/16 at 07:17; Status DC Amlodipine Besylate (Norvasc) 5 mg HS PO Last administered on 07/28/16 20:44; Start 07/27/16 at 21:00; Stop 07/29/16 at 13:30; Status DC Aspirin (Ecotrin) 81 mg HS PO Last administered on 07/29/16 22:42; Start at 21:00; Stop 07/31/16 at 14:10; Status DC Atorvastatin Calcium (Lipitor) 10 mg QHS PO Last administered on 07/29/16 22:31 ; Start 07/27/16 at 21:00; Stop 08/01/16 at 13:05; Status DC Donepezil HCl (Aricept) 10 mg DAILY PO Last administered on 07/29/16 12:51; Start 07/27/16 at 15:30; Stop 08/01/16 at 13:05; Status DC Lisinopril (Prinivil) 40 mg DAILY PO Last administered on 07/28/16 09:06; Start 07/27/16 at 15:30; Stop 07/30/16 at 14:07; Status DC Montelukast Sodium (Singulair) 10 mg HS PO Last administered on 07/29/16 22:31 ; Start 07/27/16 at 21:00; Stop 08/01/16 at 13:05; Status DC Vitamin B Complex (Rufino B) 1 tab DAILY PO ; Start 07/28/16 at 09:00; Stop at 09:00; Status DC Calcium/Vitamin D (Oscal D 500mg/ 200uts) 2 tab DAILY PO ; Start 07/27/16 at 09: 00; Stop 07/27/16 at 15:45; Status DC Duloxetine HCl (Cymbalta) 30 mg QHS PO Last administered on 07/29/16 22:42; Start 07/27/16 at 21:00; Stop 08/01/16 at 13:05; Status DC Non-Formulary Medication 1 each BID92 PO ; Start 07/28/16 at 09:00; Status UNV Tramadol HCl (Ultram) 50 mg BID PO Last administered on 07/29/16 22:32; Start 07/27/16 at 21:00; Stop 08/01/16 at 13:05; Status DC Acetaminophen (Tylenol) 325 mg BID PO Last administered on 07/29/16 22:31; Start 07/27/16 at 21:00; Stop 07/31/16 at 10:22; Status DC Non-Formulary Medication 500 mg HS PO ; Start 07/27/16 at 21:00; Status UNV Heparin Sodium (Porcine) 5,000 unit Q8HRS SQ Last administered on 08/01/16 06: 01; Start 07/27/16 at 22:00; Stop 08/01/16 at 13:05; Status DC Calcium/Vitamin D (Oscal D 500mg/ 200uts) 2 tab NOON PO Last administered on 13:24; Start 07/27/16 at 16:00; Stop 07/31/16 at 10:22; Status DC Vitamin B Complex 1 tab 1 tab NOON PO Last administered on 07/29/16 13:24; Start 07/28/16 at 12:00; Stop 08/01/16 at 13:05; Status DC Amino Acids/ Electrolytes/ Dextrose (Clinimix E 4.25%-5% Solution) 1,000 ml @ 80 mls/hr [id number] IV Last administered on 07/31/16 12:27; Start 07/28/16 at 07: 30; Stop 08/01/16 at 03:40; Status DC Potassium Chloride 40 meq 40 meq 1X ONCE PO Last administered on 07/28/16 13: 02; Start 07/28/16 at 11:30; Stop 07/28/16 at 11:31; Status DC Potassium Phosphate 10 mmol/ Sodium Chloride 103.3333 ml @ 51.667 m... Q2H IV Last administered on 07/29/16 17:30; Start 07/29/16 at 09:00; Stop 07/29/16 at 12: 59; Status DC Sodium Phosphate/ Dextrose 256.6667 ml @ 64.167 m... 1X ONCE IV Last administered on 07/29/16 20:03; Start 07/29/16 at 09:00; Stop 07/29/16 at 12:59; Status DC Aspirin (Riana Aspirin) 325 mg 1X ONCE PO ; Start 07/30/16 at 10:00; Stop 07/30 at 10:01; Status DC Clopidogrel Bisulfate (Plavix) 75 mg DAILYWBKFT PO ; Start 07/30/16 at 11:00; Stop 08/01/16 at 13:05; Status DC Metoprolol Tartrate 12.5 mg 12.5 mg BID PO ; Start 07/30/16 at 13:30; Stop 08/01 at 13:05; Status DC Piperacillin Sod/ Tazobactam Sod/ Sodium Chloride (Zosyn/Iv Sodium Chloride 0.9 % 50ml) 50 ml @ 100 mls/hr 1X ONCE IV ; Start 07/30/16 at 14:15; Stop at 14:15; Status DC Piperacillin Sod/ Tazobactam Sod 1 each 1 each PRN DAILY PRN MC SEE COMMENTS; Start 07/30/16 at 14:15; Stop 07/30/16 at 14:15; Status DC Meropenem/Sodium Chloride (Merrem/Iv Sodium Chloride 0.9% 50ml) 50 ml @ 100 mls /hr Q8HRS IV Last administered on 08/01/16 05:32; Start 07/30/16 at 22:00; Stop 08/01/16 at 13:05; Status DC Acetaminophen (Tylenol) 650 mg PRN Q6HRS PRN [place] MILD PAIN / TEMP Last administered on 08/01/16 23:14; Start 07/31/16 at 10:30 Aspirin 300 mg 300 mg DAILY [place] Last administered on 07/31/16 16:34; Start 04/08 at 09:00; Stop 08/01/16 at 13:05; Status DC Amino Acids/ Electrolytes (Clinimix E 2.75%-5% Solution) 1,000 ml @ 80 mls/hr [id number] IV Last administered on 08/01/16 04:01; Start 08/01/16 at 03:40; Stop 08/01/16 at 13:05; Status DC Morphine Sulfate 2 mg PRN Q2HR PRN IV PAIN Last administered on 08/02/16 08:35 ; Start 08/01/16 at 13:15 Scopolamine (Transderm-Scop) 1 patch Q3DAYS TD Last administered on 08/01/16t 13:38; Start 08/01/16 at 14:00 Active Scripts Active Reported Lo-Dose Aspirin EC (Aspirin) 81 Mg Tablet.dr 81 Mg PO DAILY [Tumeric] 500 Mg PO HS Cymbalta (Duloxetine Hcl) 60 Mg Capsule.dr 60 Mg PO HS Amlodipine Besylate 5 Mg Tablet 5 Mg PO HS Montelukast Sodium Tablet (Montelukast Sodium) 10 Mg Tablet 10 Mg PO HS Calcium 1,000 + D3 Caplet (Calcium Carbonate/Vitamin D3) 1 Each Tablet 1 Each PO NOON Vitamin B-Complex & C (B Complex With Vitamin C) 1 Each Tablet.er 1 Each PO NOON Lipitor (Atorvastatin Calcium) 10 Mg Tablet 10 Mg PO NOON Osteo Bi-Flex Tablet (Glucosamine/D3/Boswellia Sharon) 1 Each Tablet 1 Each PO BIDACBL Aricept (Donepezil Hcl) 10 Mg Tablet 10 Mg PO DAILY Tramadol-Acetaminophn 37.5-325 (Tramadol Hcl/Acetaminophen) 1 Each Tablet 1 Tab PO HS Tramadol-Acetaminophn 37.5-325 (Tramadol Hcl/Acetaminophen) 1 Each Tablet 2 Tab PO DAILYWBKFT Lisinopril 40 Mg Tablet 40 Mg PO DAILY Vitals/I & O Vital Sign - Last 24 Hours 08/01/16 08/01/16 08/01/16 08/01/16 11:00 15:00 19:54 20:00 Temp 97.9 98.9 98.3 97.9 98.9 98.3 Pulse 87 87 87 Resp 20 44 40 B/P 105/63 117/83 114/54 Pulse Ox 96 94 95 O2 Delivery Nasal Cannula Nasal Cannula Room Air Nasal Cannula O2 Flow Rate 1.0 0.5 0.5 08/01/16 08/02/16 08/02/16 23:09 03:18 07:00 Temp 99.7 97.4 98.3 99.7 97.4 98.3 Pulse 84 88 88 Resp 42 40 30 B/P 104/54 113/61 110/59 Pulse Ox 96 96 95 O2 Delivery Nasal Cannula Nasal Cannula Nasal Cannula O2 Flow Rate 0.5 0.5 0.5 Intake and Output 08/01/16 08/01/16 08/02/16 15:00 23:00 07:00 Intake Total 0 ml 0 ml Balance 0 ml 0 ml AVILA JORDAN MD Aug 02, 2016 10:40
[2016-08-02 11:00] VITALS: BP 102/54
--- NOTE | 2016-08-02 11:06 | PDOC2 ---
PALLIATIVE CARE Palliative Care Note Palliative Care Patient unresponsive to verbal stimuli. Met with dtrs Alejandra and Carol, granddaughters and grandson. 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 Code Status; DNR/DNI Family would like to take her home. Focus on comfort with support of Hospice. Laura KIMBALL will assist with selection of hospice. Outside the Hospital DNR/DNI form signed. DME: Hospital Bed, Oxygen, Patient may benefit from placement of Hospice. Plan: Home with hospice today DNR/DNI completed. DME: Bed, Oxygen, LEIGHA HAIRSTON Aug 02, 2016 11:06
== END 2016-08-02 17:32 | disposition hospice, home (50) | DRG 64 ==
LOC: ER 10:44 → 5 NORTH 12:25
PROVIDERS: ADMIT Internal Medicine; ATTEND Internal Medicine
DX: I63.40 Cerebral infarction due to embolism of unspecified cerebral artery (principal); N17.0 Acute kidney failure with tubular necrosis; G93.41 Metabolic encephalopathy; R65.10 Systemic inflammatory response syndrome (SIRS) of non-infectious origin without acute organ dysfunction; E44.0 Moderate protein-calorie malnutrition; N30.00 Acute cystitis without hematuria; Z66 Do not resuscitate; I10 Essential (primary) hypertension; E78.5 Hyperlipidemia, unspecified; M19.90 Unspecified osteoarthritis, unspecified site; E66.9 Obesity, unspecified; E78.00 Pure hypercholesterolemia, unspecified; E83.39 Other disorders of phosphorus metabolism; E87.6 Hypokalemia; F02.80 Dementia in other diseases classified elsewhere, unspecified severity, without behavioral disturbance, psychotic disturbance, mood disturbance, and anxiety; G30.9 Alzheimer's disease, unspecified; I05.0 Rheumatic mitral stenosis; I73.9 Peripheral vascular disease, unspecified; Z16.11 Resistance to penicillins; Z51.5 Encounter for palliative care; Z82.0 Family history of epilepsy and other diseases of the nervous system; Z91.81 History of falling; Z68.30 Body mass index [BMI] 30.0-30.9, adult; Z79.82 Long term (current) use of aspirin; Z90.49 Acquired absence of other specified parts of digestive tract; Z90.710 Acquired absence of both cervix and uterus; Z79.899 Other long term (current) drug therapy
CPT/HCPCS: 36415; 51701; 70551; 71010; 80048; 81001; 82306; 82607; 83735; 84100; 84443; 85007; 85027; 87040; 87086; 87186; 87205; 87804; 93005; 93306; 93880; 95816; 96361; 96365; J0690; J0696; J2185; J2270; J3490; J7040; 97110; 97530; 97535; 99285-25